=== PATIENT | male | born 1970 | race Caucasian/White ===

== ENCOUNTER 2017-09-10 09:03 | Emergency (ER) | payer MEDICAID ==
[~2017-09-10] VITALS: Ht 172.7 cm; Wt 77.1 kg
[~2017-09-10 09:03] MED LIST: LEVO250T69 PO; MAGNSOL PO; METO1TAB9 PO; OMEP20CA74 PO; SEVE800T PO; WARF3TAB22 PO
[2017-09-10 09:14] VITALS: BP 126/76
== END 2017-09-10 17:44 | disposition left against medical advice (07) ==
LOC: EDBD 09:03 → ER 09:03
DX: M25.512 Pain in left shoulder (principal); M25.572 Pain in left ankle and joints of left foot; W19.XXXA Unspecified fall, initial encounter; Y93.89 Activity, other specified; Y92.69 Other specified industrial and construction area as the place of occurrence of the external cause; Y99.8 Other external cause status; Z53.21 Procedure and treatment not carried out due to patient leaving prior to being seen by health care provider
CPT/HCPCS: 72100; 73030; 73610

== ENCOUNTER 2017-09-28 11:44 | Emergency (ER) | payer MEDICAID ==
[~2017-09-28] VITALS: Ht 185.4 cm; Wt 81.6 kg
[2017-09-28 12:25] LABS: Basophils # (auto) 0.1 uL; Basophils % (auto) 1.5 % (0.0-2.0); Eosinophils # (auto) 0.2 uL; Hematocrit 25.8 % (41.0-53.0); Hemoglobin 8.5 g/dL (13.5-17.5); Lymphocytes # (auto) 0.7 uL; Lymphocytes % (auto) 12.9 % (10.0-50.0); Mean Corpuscular Hemoglobin 31.4 pg (28.0-32.0); Mean Corpuscular Hgb Conc. 33.1 g/dL (32.0-36.0); Monocytes # (auto) 0.5 uL; Monocytes % (auto) 9.5 % (0.0-12.0); Neutrophils # (auto) 3.9 uL; Neutrophils % (auto) 73.1 % (37.0-80.0); Platelet Count (auto) 217 10^3/uL (140-450); Red Blood Cells 2.72 10^6/uL (4.5-5.90); Red Cell Distribution Width 16.9 % (11.8-14.3); White Blood Cell 5.3 10^3/uL (4.4-10.8)
[2017-09-28 12:43] LABS: Albumin 3.4 g/dL (3.4-5.0); BUN/Creatinine Ratio 5.8; Bilirubin, Total 0.3 mg/dL (0.2-1.0); Calcium 8.9 mg/dL (8.5-10.1); Magnesium 2.8 mg/dL (1.6-2.6); Potassium 5.5 mmol/L (3.5-5.1); Total Protein 7.1 g/dL (6.4-8.2)
[2017-09-28] MEDS ORDERED: cefTRIAXone 1GM/10ml IVPUSH 10 ML IV ONE (16:45)
[2017-09-28 19:21] VITALS: BP 125/76
== END 2017-09-28 19:29 | disposition left against medical advice (07) ==
LOC: EDBD 11:44 → ER 11:44
DX: R53.1 Weakness (principal); R55 Syncope and collapse; I95.2 Hypotension due to drugs; D63.1 Anemia in chronic kidney disease; R00.1 Bradycardia, unspecified; N18.6 End stage renal disease; E87.5 Hyperkalemia; J44.9 Chronic obstructive pulmonary disease, unspecified; I50.9 Heart failure, unspecified; I13.2 Hypertensive heart and chronic kidney disease with heart failure and with stage 5 chronic kidney disease, or end stage renal disease; K21.9 Gastro-esophageal reflux disease without esophagitis; Z99.2 Dependence on renal dialysis; Z95.2 Presence of prosthetic heart valve; Z95.1 Presence of aortocoronary bypass graft
CPT/HCPCS: 36415; 71045; 80053; 83735; 84484; 85025; 87040; 87077; 87186; 93005; 96374

== ENCOUNTER 2018-02-04 05:53 | Emergency (ER) | payer MEDICAID ==
[~2018-02-04] VITALS: Ht 185.4 cm; Wt 81.6 kg
[2018-02-04 07:15] LABS: Basophils # (auto) 0.1 uL; Basophils % (auto) 1.4 % (0.0-2.0); Eosinophils # (auto) 0.3 uL; Eosinophils % (auto) 4.2 % (0.0-7.0); Hematocrit 28.2 % (41.0-53.0); Hemoglobin 9.6 g/dL (13.5-17.5); INR 0.98 (0.9-1.15); Lymphocytes # (auto) 1.1 uL; Lymphocytes % (auto) 17.7 % (10.0-50.0); Mean Corpuscular Hemoglobin 30.5 pg (28.0-32.0); Mean Corpuscular Volume 89.7 fL (80.0-100.0); Monocytes # (auto) 0.6 uL; Monocytes % (auto) 8.9 % (0.0-12.0); Neutrophils # (auto) 4.2 uL; Neutrophils % (auto) 67.8 % (37.0-80.0); Nucleated Red Blood Cells % 0.1 %; Partial Thromboplastin Time 27.5 sec (22.64-33.71); Platelet Count (auto) 270 10^3/uL (140-450); Prothrombin Time 10.7 sec (9.37-12.3); Red Blood Cells 3.14 10^6/uL (4.5-5.90); Red Cell Distribution Width 17.2 % (11.8-14.3); White Blood Cell 6.2 10^3/uL (4.4-10.8)
[2018-02-04 07:28] LABS: BUN/Creatinine Ratio 5.3; Bilirubin, Total 0.4 mg/dL (0.2-1.0); Calcium 8.9 mg/dL (8.5-10.1); Potassium 4.8 mmol/L (3.5-5.1); Total Protein 7.9 g/dL (6.4-8.2)
[2018-02-04 09:28] VITALS: BP 184/104
[2018-02-04] MEDS ORDERED: NITROGLYCERIN 0.4 MG SL TAB SL PRN (10:30)
[2018-02-04] MEDS ORDERED: TEMAZEPAM 15 MG CAP PO PRN (10:30)
[2018-02-04] MEDS ORDERED: LORazepam 0.5 MG TAB PO PRN (10:30)
[2018-02-04] MEDS ORDERED: LABETALOL HCL 5 MG/ML ML 20ML VIAL IV PRN ×2 (10:30)
[2018-02-04] MEDS ORDERED: ACETAMINOPHEN 500 MG TAB PO PRN (10:30)
[2018-02-04] MEDS ORDERED: HYDROcodone-ACET 5/325MG TAB PO PRN (10:30)
[2018-02-04] MEDS ORDERED: HYDROmorphone HCL 2 MG/ML VL IV PRN (10:30)
[2018-02-04] MEDS ORDERED: ENALAPRIL MALEATE 2.5 MG TAB PO ONE (10:45)
[2018-02-04] MEDS ORDERED: NITROGLYCERIN 0.2MG/HR TOPICAL PATCH TD ONE (10:45)
[2018-02-04 11:02] LABS: INR 1.01 (0.9-1.15); Partial Thromboplastin Time 28.2 sec (22.64-33.71)
[2018-02-04] MEDS ORDERED: SEVELAMER 800 MG TAB PO SCH (11:30)
[2018-02-05] MEDS ORDERED: NITROGLYCERIN 0.2MG/HR TOPICAL PATCH TD SCH (10:00)
[2018-02-05] MEDS ORDERED: METOPROLOL SUCCINATE XL 50 MG TAB PO SCH (10:00)
[2018-02-05] MEDS ORDERED: PANTOPRAZOLE 40 MG TAB PO SCH (10:00)
[2018-02-05] MEDS ORDERED: PATIENTS OWN MEDICATION (Warfarin Sodium 1 TAB) PO SCH (10:00)
[2018-02-05] MEDS ORDERED: PATIENTS OWN MEDICATION (Metoprolol Succinate (Metoprolol Succinate Er) 1 TAB) PO SCH (10:00)
[2018-02-05] MEDS ORDERED: OMEPRAZOLE 20MG/10ML ORAL SUSP PO SCH (10:00)
[2018-02-05] MEDS ORDERED: ENALAPRIL MALEATE 2.5 MG TAB PO SCH (10:00)
== END 2018-02-04 12:54 | disposition left against medical advice (07) ==
LOC: ER 05:56 → UNDOADMIN 05:57 → TELE 05:57 → ER 12:54
DX: K21.9 Gastro-esophageal reflux disease without esophagitis (principal); J44.9 Chronic obstructive pulmonary disease, unspecified; I13.2 Hypertensive heart and chronic kidney disease with heart failure and with stage 5 chronic kidney disease, or end stage renal disease; N18.6 End stage renal disease; E78.5 Hyperlipidemia, unspecified; F32.9 Major depressive disorder, single episode, unspecified; F41.9 Anxiety disorder, unspecified; I25.10 Atherosclerotic heart disease of native coronary artery without angina pectoris; Z79.01 Long term (current) use of anticoagulants; Z91.19 Patient's noncompliance with other medical treatment and regimen; Z95.1 Presence of aortocoronary bypass graft; Z99.2 Dependence on renal dialysis
CPT/HCPCS: 36415; 71046; 80053; 82550; 83880; 84443; 84484; 85025; 85610; 85730; 93005

== ENCOUNTER 2018-02-10 16:36 | Emergency (ER) | payer MEDICAID ==
[~2018-02-10] VITALS: Ht 185.4 cm; Wt 81.6 kg
[2018-02-10 16:56] VITALS: BP 169/100
[2018-02-10] MEDS ORDERED: PIPERACILLIN-TAZOB 3.375GM 100 ML IV ONE (17:00)
== END 2018-02-10 17:00 | disposition left against medical advice (07) ==
LOC: ER 16:36
DX: I13.2 Hypertensive heart and chronic kidney disease with heart failure and with stage 5 chronic kidney disease, or end stage renal disease (principal); I50.22 Chronic systolic (congestive) heart failure; N18.6 End stage renal disease; Z99.2 Dependence on renal dialysis; Z87.891 Personal history of nicotine dependence; Z88.6 Allergy status to analgesic agent; Z88.8 Allergy status to other drugs, medicaments and biological substances; Z95.1 Presence of aortocoronary bypass graft

== ENCOUNTER 2019-09-16 08:07 | Emergency (ER) | payer MEDICAID ==
[~2019-09-16] VITALS: Ht 180.3 cm; Wt 77.1 kg
[2019-09-16 08:24] VITALS: BP 220/130
== END 2019-09-16 08:30 | disposition left against medical advice (07) ==
LOC: ER 08:07
DX: R53.1 Weakness (principal); Z53.21 Procedure and treatment not carried out due to patient leaving prior to being seen by health care provider
CPT/HCPCS: 93005

== ENCOUNTER 2021-12-20 21:30 | Emergency (ER) | payer MEDICAID ==
[~2021-12-20] VITALS: Ht 188 cm; Wt 79.4 kg
[~2021-12-20 21:30] MED LIST changes: +APIX2.5T PO; +APIX5TAB4 PO; +CALC667C5 PO; +CAR125T PO; +CLON0.1T PO; +HYDR25TA87 PO; -LEVO250T69 PO; +LOSA-69 PO; +NIFE1TAB31 PO; -WARF3TAB22 PO
[2021-12-20 23:50] VITALS: BP 150/92
== END 2021-12-21 01:21 | disposition home or self-care (01) ==
LOC: EDBD 21:30 → ER 21:30
DX: S82.402A Unspecified fracture of shaft of left fibula, initial encounter for closed fracture (principal); S00.83XA Contusion of other part of head, initial encounter; I12.0 Hypertensive chronic kidney disease with stage 5 chronic kidney disease or end stage renal disease; N18.6 End stage renal disease; F12.10 Cannabis abuse, uncomplicated; Z87.891 Personal history of nicotine dependence; Y08.89XA Assault by other specified means, initial encounter; Y93.89 Activity, other specified; Y92.89 Other specified places as the place of occurrence of the external cause; Y99.8 Other external cause status
CPT/HCPCS: 29515; 70486; 73590

== ENCOUNTER 2022-02-27 01:14 | Emergency (ER) | payer MEDICAID ==
[~2022-02-27] VITALS: Ht 188 cm; Wt 79.4 kg
[2022-02-27 01:16] VITALS: BP 160/98
[2022-02-27] MEDS ORDERED: SULF400T11 PO (01:40)
[2022-02-27] MEDS ORDERED: CEPH-509 PO (01:40)
[2022-02-27] MEDS ORDERED: cefTRIAXone SOD 1,000 MG VL IM ONE (01:45)
[2022-02-27] MEDS ORDERED: LIDOCAINE 1% (LOCAL ANESTH.) PF 5ml SDV ONE (02:13)
[2022-02-27] MEDS ORDERED: LIDOCAINE 1% HCL (LOCAL ANESTH.) INJ 20ML MDV IJ ONE (02:15)
== END 2022-02-27 02:24 | disposition left against medical advice (07) ==
LOC: ER 01:14
DX: I12.0 Hypertensive chronic kidney disease with stage 5 chronic kidney disease or end stage renal disease (principal); N18.6 End stage renal disease; F12.10 Cannabis abuse, uncomplicated; Z87.891 Personal history of nicotine dependence; Z49.01 Encounter for fitting and adjustment of extracorporeal dialysis catheter; Z88.8 Allergy status to other drugs, medicaments and biological substances; Z88.6 Allergy status to analgesic agent
CPT/HCPCS: 99283; J0696

== ENCOUNTER 2023-09-23 11:40 | Emergency (ER) | payer MEDICAID ==
[~2023-09-23] VITALS: Ht 177.8 cm; Wt 77.5 kg
[~2023-09-23 11:40] MED LIST changes: +CEPH-509 PO; -LOSA-69 PO; +LOSA50TA46 PO; +SULF400T11 PO
[2023-09-23 11:50] VITALS: BP 136/82; RESP 20; O2SAT 96
[2023-09-23 11:56] VITALS: PULSE 81
== END 2023-09-23 12:20 | disposition left against medical advice (07) ==
LOC: ER 11:40 → EDBD 11:40 → ER 12:20
DX: R10.30 Lower abdominal pain, unspecified (principal); R94.31 Abnormal electrocardiogram [ECG] [EKG]; Z53.21 Procedure and treatment not carried out due to patient leaving prior to being seen by health care provider
CPT/HCPCS: 93005

== ENCOUNTER 2025-01-12 18:20 | Inpatient (IN) | payer MEDICAID ==
[~2025-01-12] VITALS: Ht 172.7 cm; Wt 71.2 kg
[~2025-01-12 18:20] MED LIST changes: -CAR125T PO; +CARV-216 PO; +LOSA-534 PO; -LOSA50TA46 PO; -SEVE800T PO; +SEVE800T7 PO
--- NOTE | 2025-01-12 19:02 | ED.PDOC ---
Altered Mental Status HPI Comments 54 year old male presents to the emergency department with a chief complaint of overdose onset today (01/12/25). Per EMS, 911 was called by patient's roommate, was at home found on the ground, cyanotic, pinpoint pupils, unconscious. He was given 0.5 mg Narcan, with slight response, 1.5 mg Narcan given 5 minutes after. Upon ED arrival, patient is awake, admits the use of Fentanyl, is currently experiencing chest pain and nausea, hypertensive 192/104. PMHx ESRD, HTN, depression, anxiety, anemia. Denies headache, shortness of breath, dizziness, vomiting, diarrhea, abdominal pain. No other symptoms or modifying factors present at this time. Chief Complaint: Overdose Time Seen by MD: 18:25 Primary Care Provider: MARVEL Reviewed Notes: Medications, Allergies Allergies: Coded Allergies: Tramadol (Verified Allergy, Severe, 08/26/13) Aspirin (Verified Allergy, Unknown, PT IS ON COUMADIN. NO ASPIRIN, 03/04/14) Dexamethasone (Verified Allergy, Unknown, ITCHING, 03/04/14) Ketorolac (Verified Allergy, Unknown, ITCHING, 03/04/14) Morphine (Verified Allergy, Unknown, 06/18/16) Home Meds Active Scripts Sulfamethoxazole-Trimethoprim (Bactrim) 1 Tab Tab, 1 TAB PO BID for 7 Days, #14 MG Prov:DENNIS CAN DO 02/27/22 Cephalexin (KEFLEX 500) 500 Mg Cap, 1 CAP PO BID for 7 Days, #14 CAP Prov:DENNIS CAN DO 02/27/22 Hydralazine HCl (Hydralazine HCl) 25 Mg Tab, 25 MG PO Q8HR, #90 TAB Prov:DAX LAM MD 11/04/19 Clonidine Hydrochloride (Clonidine Hcl) 0.1 Mg Tab, 0.1 MG PO Q8HPRN PRN, #90 TAB Measure blood pressure prior to every dose. Take only if your systolic blood pressure or top number is above 160 mmHg Prov:DAX LAM MD 11/03/19 Nifedipine (Nifedipine Er) 30 Mg Tab, 60 MG PO DAILY, #30 TAB Prov:DAX LAM MD 11/03/19 Losartan Potassium (Losartan Potassium) 50 Mg Tab, 50 MG PO BID, #60 TAB Prov:DAX LAM MD 11/03/19 Calcium Acetate (PHOSLO CAPSULE) 667 Mg Cp, 1334 MG PO TIDWMEALS, #180 CAP Prov:DAX LAM MD 11/03/19 Carvedilol (COREG) 12.5 Mg Tab, 25 MG PO Q12HR, #60 TAB Prov:DAX LAM MD 11/03/19 Apixaban Base (ELIQUIS) 2.5 Mg Tab, 2.5 MG PO BID, #60 TAB Prov:DXA LAM MD 11/03/19 Omeprazole (PRILOSEC) 20 Mg Cap, 1 CAP PO DAILY, #90 CAP 1 Refill Prov:LUCIO PLUNKETT MD 09/01/17 Reported Medications Apixaban Base (Eliquis Starter Pack) 5 Mg Tab, 5 MG PO BID, TAB 11/02/19 Magnesium Citrate (Citrate of Magnesia) 1 Socorro Socorro, 1 SOCORRO PO PRN for FOR CONSTIPATION 08/31/17 Sevelamer Hydrochloride (Renagel) 800 Mg Tab, 800 MG PO AC, TAB 02/16/16 Metoprolol Succinate (Metoprolol Succinate Er) 100 Mg Tab, 1 TAB PO DAILY, #30 07/11/13 Information Source: Patient, Emergency Med Personnel Mode of Arrival: EMS Severity: Moderate Timing: Hours Duration: Since onset Prehospital treatment: Other (Narcan) Quality: Decreased Alertness, Change in Behavior Recent: Medication/Drug Abuse Associated Signs and Symptoms: Chest Pain Past Medical History PAST MEDICAL HISTORY: Anemia, Anxiety, Depression, ESRD, HTN Surgical History: CABG Family History Family History: Reviewed,noncontributory to illness, No family hx of Cancer, No family hx of DM, No family hx of HTN Social History Smoker: Quit Greater Than 1 Year, Cigarettes Alcohol: Denies ETOH Use Drugs: Marijuana, Other Lives In: Home Constitutional: denies: chills, diaphoresis, fatigue, fever, malaise, sweats, weakness, others EENTM: denies: blurred vision, double vision, ear bleeding, ear discharge, ear drainage, ear pain, ear ringing, eye pain, eye redness, hearing loss, mouth pa in, mouth swelling, nasal discharge, nose bleeding, nose congestion, nose pain, photophobia, tearing, throat pain, throat swelling, voice changes, others Respiratory: denies: cough, hemoptysis, orthopnea, SOB at rest, shortness of breath, SOB with excertion, stridor, wheezing, others Cardiovascular: reports: chest pain; denies: dizzy spells, diaphoresis, Dyspnea on exertion, edema, irregular heart beat, left arm pain, lightheadedness, palpitations, PND, syncope, others Gastrointestinal: denies: abdomen distended, abdominal pain, blood streaked bow els, constipated, diarrhea, dysphagia, difficulty swallowing, hematemesis, melena, nausea, poor appetite, poor fluid intake, rectal bleeding, rectal pain, vomiting, others Genitourinary: denies: burning, dysuria, flank pain, frequency, hematuria, incontinence, penile discharge, penile sore, pain, testicle pain, testicle swelling, urgency, others Neurological: denies: dizziness, fainting, headache, left sided numbness, left sided weakness, numbness, paresthesia, pre-existing deficit, right sided numbness, right sided weakness, seizure, speech problems, tingling, tremors, weakness, others Musculoskeletal: denies: back pain, gout, joint pain, joint swelling, muscle pain, muscle stiffness, neck pain, others Integumetry: denies: bruises, change in color, change in hair/nails, dryness, laceration, lesions, lumps, rash, wounds, others Allergic/Immunocompromised: denies: Difficulty Healing, Frequent Infections, Hives, Itching, others Hematologic/Lymphatic: denies: anemia, blood clots, easy bleeding, easy bruising, swollen glands, others Endocrine: denies: excessive hunger, excessive sweating, excessive thirst, excessive urination, flushing, intolerance to cold, intolerance to heat, unexplained weight gain, unexplained weight loss, others Psychiatric: reports: others (overdose); denies: anxiety, bipolar disorder, depression, hopeless, panic disorder, schizophrenia, sleepless, suicidal All Other Systems: Reviewed and Negative Physical Exam General Appearance: No Apparent Distress, Normal HEENT: Normal ENT Inspection, Pharynx Normal, TMs Normal Neck: Full Range of Motion, Non-Tender, Normal, Normal Inspection Respiratory: Chest Non-Tender, Lungs Clear, No Accessory Muscle Use, No Respiratory Distress, Normal Breath Sounds Cardiovascular: No Edema, No JVD, No Murmur, No Gallop, Normal Peripheral Pulses, Regular Rate/Rhythm Breast Exam: Deferred Gastrointestinal: No Organomegaly, Non Tender, No Pulsatile Mass, Normal Bowel Sounds, Soft Genitalia: Deferred Pelvic: Deferred Rectal: Deferred Extremities: No calf tenderness, Normal capillary refill, Normal inspection, Normal range of motion, Non-tender, No pedal edema Musculoskeletal : Apperance: Normal Neurologic: Alert, jeep mechanic II-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 Was a procedure done?: No Differential Diagnosis (ALOC) Differential Diagnosis: Dehydration, Hypoglycemia, DKA, Encephalopathy, Meningitis, Sepsis, Hypoxemia, Seizure, Closed Head Injury, Drug Overdose, ETOH Intoxication, Renal Failure, Other X-Ray, Labs, Meds, VS Vital Signs Date Time Temp Pulse Resp B/P (MAP) Pulse Ox O2 Delivery O2 Flow Rate FiO2 01/12/25 20:00 77 01/12/25 19:37 98.4 79 11 122/75 (91) 94 98.4 01/12/25 19:37 11 95 Room Air* 0 21 01/12/25 18:35 82 01/12/25 18:30 98.7 86 20 192/104 (133) 97 98.7 Lab Test 01/12/25 21:38 01/12/25 19:35 01/12/25 18:44 Range/Units Troponin I High Sensitivity Pending 52 37 </=54 ng/L White Blood Count 7.5 4.4-10.8 10^3/uL Red Blood Count 3.74 L 4.5-5.90 10^6/uL Hemoglobin 11.8 L 13.5-17.5 g/dL Hematocrit 35.0 L 41.0-53.0 % Mean Corpuscular Volume 93.5 80.0-100.0 fL Mean Corpuscular Hemoglobin 31.5 28.0-32.0 pg Mean Corpuscular Hemoglobin Concent 33.7 32.0-36.0 g/dL Red Cell Distribution Width 15.6 H 11.8-14.3 % Platelet Count 308 140-450 10^3/uL Mean Platelet Volume 6.6 L 6.9-10.8 fL Neutrophils (%) (Auto) 75.3 37.0-80.0 % Lymphocytes (%) (Auto) 9.3 L 10.0-50.0 % Monocytes (%) (Auto) 9.6 0.0-12.0 % Eosinophils (%) (Auto) 4.5 0.0-7.0 % Basophils (%) (Auto) 1.3 0.0-2.0 % Neutrophils # (Auto) 5.6 1.6-8.6 10 ^3/uL Lymphocytes # (Auto) 0.7 0.4-5.4 10 ^3/uL Monocytes # (Auto) 0.7 0-1.3 10 ^3/uL Eosinophils # (Auto) 0.3 0-0.8 10 ^3/uL Basophils # (Auto) 0.1 0-0.2 10 ^3/uL Nucleated Red Blood Cells 0.1 % Sodium Level 135 L 136-145 mmol/L Potassium Level 4.2 3.5-5.1 mmol/L Chloride Level 98 98-107 mmol/L Carbon Dioxide Level 23 20-31 mmol/L Anion Gap 14 5-15 Blood Urea Nitrogen 37 H 9-23 mg/dL Creatinine 7.91 H 0.700-1.30 mg/dL Glomerular Filtration Rate Calc 7 >90 mL/min BUN/Creatinine Ratio 4.7 L 10.0-20.0 Serum Glucose 162 H 74-106 mg/dL Calcium Level 10.9 H 8.7-10.4 mg/dL Total Bilirubin 0.2 0.2-1.0 mg/dL Aspartate Amino Transferase (AST) 27 13-40 U/L Alanine Aminotransferase (ALT) 22 7-40 U/L Alkaline Phosphatase 77 46-116 U/L Total Protein 7.7 5.7-8.2 g/dL Albumin 4.6 3.2-4.8 g/dL Salicylates Level < 3.0 -30 mg/dL Acetaminophen Level < 2.0 L 10.0-20.0 UG/ML Plasma/Serum Blood Alcohol 6.7 <10 mg/dL Time of 1ST Reevaluation: 18:55 Reevaluation 1ST: Unchanged Time of 2ND Reevaluation: 22:10 Reevaluation 2ND: Improved (Patient is wide awake, vital signs are stable. Patient is requesting to go home and declines admission. Patient is scheduled for dialysis tomorrow he gets it Friday and Friday) Patient Education/Counseling: Diagnosis, Treatment, Prognosis Family Education/Counseling: No Family Present Additional Information The following tests were ordered, and results were reviewed by me: CBC, CMP, DRUG SCREEN, ACETAMINOPHEN, SALICYLATE, BLOOD ALCOHOL, EKG, TROP -x3 Additional Information was gathered from interviewing the following independent historians: EMS I discussed treatment and results with medical personnel and: Patient Comprehensive systems review obtained and negative except for what is stated in the HPI. Departure 1 Departure Time of Disposition: 22:11 Impression: Primary Impression: ESRD on dialysis Additional Impression: Opiate overdose Disposition: HOME / SELF CARE / HOMELESS Condition: Stable Discharged With: Self Critical Care Note Critical Care Time?: No Stability Stability form required: No I personally scribed for EPHRAIM LESTER MD ([email or web address]) on 01/12/25 at 19:02. Electronically submitted by Mago Florian ([email or web address]). I personally scribed for EPHRAIM LESTER MD ([email or web address]) on 01/12/25 at 19:12. Electronically submitted by Mago Florian ([email or web address]). EPHRAIM LESTER MD Jan 12, 2025 19:02
[2025-01-12 19:06] LABS: Basophils # (auto) 0.1 10 ^3/uL (0-0.2); Basophils % (auto) 1.3 % (0.0-2.0); Eosinophils # (auto) 0.3 10 ^3/uL (0-0.8); Eosinophils % (auto) 4.5 % (0.0-7.0); Hemoglobin 11.8 g/dL (13.5-17.5); Lymphocytes # (auto) 0.7 10 ^3/uL (0.4-5.4); Lymphocytes % (auto) 9.3 % (10.0-50.0); Mean Corpuscular Hemoglobin 31.5 pg (28.0-32.0); Mean Corpuscular Hgb Conc. 33.7 g/dL (32.0-36.0); Mean Corpuscular Volume 93.5 fL (80.0-100.0); Monocytes # (auto) 0.7 10 ^3/uL (0-1.3); Monocytes % (auto) 9.6 % (0.0-12.0); Neutrophils # (auto) 5.6 10 ^3/uL (1.6-8.6); Neutrophils % (auto) 75.3 % (37.0-80.0); Nucleated Red Blood Cells % 0.1 %; Platelet Count (auto) 308 10^3/uL (140-450); Red Blood Cells 3.74 10^6/uL (4.5-5.90); Red Cell Distribution Width 15.6 % (11.8-14.3); White Blood Cell 7.5 10^3/uL (4.4-10.8)
[2025-01-12 19:31] LABS: Alanine Aminotransferase 22 U/L (7-40); Alkaline Phosphatase 77 U/L (46-116); Anion Gap 14 (5-15); Aspartate Aminotransferase 27 U/L (13-40); BUN/Creatinine Ratio 4.7 (10.0-20.0); Blood Alcohol 6.7 mg/dL (<10); Carbon Dioxide 23 mmol/L (20-31); Potassium 4.2 mmol/L (3.5-5.1); Total Protein 7.7 g/dL (5.7-8.2)
[2025-01-12 19:33] LABS: Albumin 4.6 g/dL (3.2-4.8)
[2025-01-12 19:35] LABS: Bilirubin, Total 0.2 mg/dL (0.2-1.0); Blood Urea Nitrogen 37 mg/dL (9-23); Calcium 10.9 mg/dL (8.7-10.4); Chloride 98 mmol/L (98-107); Glucose 162 mg/dL (74-106); Sodium 135 mmol/L (136-145)
[2025-01-12 19:37] VITALS: RESP 11; O2SAT 95
[2025-01-12 20:02] LABS: Acetaminophen < 2.0 UG/ML (10.0-20.0); Salicylate < 3.0 mg/dL (-30)
[2025-01-12] MEDS: ASPirin 81 mg TAB PO ONE (23:33)
[2025-01-13] VITALS (7 sets, daily range): BP systolic 141–175; BP diastolic 90–100; PULSE 59–82; RESP 16–17; TEMP 97.5–97.8; O2SAT 95–100
[2025-01-13] MEDS ORDERED: ONDANSETRON HCL 4 MG/2 ML VIAL IV PRN
[2025-01-13] MEDS ORDERED: NITROGLYCERIN 0.4 MG SL TAB SL PRN
[2025-01-13] MEDS ORDERED: HYDR50TA69 PO (03:21)
--- NOTE | 2025-01-13 04:42 | DVHHP2 ---
History of Present Illness Reason for Visit: Altered mental status History of Present Illness 54-year-old male presents for evaluation of altered mental status. Patient was found unresponsive by EMS. Per roommate patient possibly have overdosed on fentanyl. Patient is currently alert and oriented x4 he was given multiple dos es of Narcan with positive response. He reports using fentanyl yesterday evening. Patient denies chest pain or shortness for breath at the moment. Past Medical History Hypertension and end-stage renal disease Past Surgical History Dialysis access Family History Noncontributory Smoke: No ALCOHOL: none Drugs: None Lives: with Family Review of Systems Review of Systems Review of systems are currently negative otherwise addressed in HPI. Allergies: Coded Allergies: Tramadol (Verified Allergy, Severe, 08/26/13) Aspirin (Verified Allergy, Unknown, PT IS ON COUMADIN. NO ASPIRIN, 03/04/14) Dexamethasone (Verified Allergy, Unknown, ITCHING, 03/04/14) Ketorolac (Verified Allergy, Unknown, ITCHING, 03/04/14) Morphine (Verified Allergy, Unknown, 06/18/16) Medications Current Medications Medications Dose Ordered Sig/Harsh Route Start Time Stop Time Status Last Admin Dose Admin Nitroglycerin 0.4 mg Q5MINP PRN SL 01/13/25 00:00 Apixaban 5 mg BID PO 01/13/25 10:00 Calcium Acetate 667 mg TIDWMEALS PO 01/13/25 08:00 Carvedilol 3.125 mg Q12HR PO 01/13/25 10:00 Hydralazine HCl 25 mg Q8HR PO 01/13/25 06:00 Nifedipine 60 mg DAILY PO 01/13/25 10:00 Sevelamer HCl 800 mg TIDWM PO 01/13/25 08:00 Atorvastatin Calcium 10 mg HS PO 01/13/25 22:00 Ondansetron HCl 4 mg Q4HP PRN IV 01/13/25 00:00 Exam Vital Signs Vital Signs Date Time Temp Pulse Resp B/P (MAP) Pulse Ox O2 Delivery O2 Flow Rate FiO2 01/13/25 00:00 70 01/13/25 00:00 98.7 12 152/96 (114) 95 98.7 01/12/25 19:37 Room Air* 0 21 Exam Gen: 54-year-old male in no apparent distress. Skin: Warm, dry, normal color and texture, no rash. HEENT: Normocephalic atraumatic, mucous membranes moist and pink. Neck: Cervical and supraclavicular nodes normal without enlargement, trachea is midline, thyroid gland is normal without masses. Pulmonary: Clear to auscultation and percussion bilaterally. Cardiac: Regular rate and rhythm. No murmur Abdomen: Soft, nontender, nondistended, bowel sounds present all 4 quadrants, no guarding, no rigidity, no organomegaly. Extremities: No cyanosis, clubbing, no edema Neuro: Cranial nerves II through XII grossly intact, normal affect and speech, no focal motor deficits. Labs/Xrays Labs Test 01/12/25 22:37 01/12/25 18:44 Range/Units Troponin I High Sensitivity 123 *H </=54 ng/L White Blood Count 7.5 4.4-10.8 10^3/uL Red Blood Count 3.74 L 4.5-5.90 10^6/uL Hemoglobin 11.8 L 13.5-17.5 g/dL Hematocrit 35.0 L 41.0-53.0 % Mean Corpuscular Volume 93.5 80.0-100.0 fL Mean Corpuscular Hemoglobin 31.5 28.0-32.0 pg Mean Corpuscular Hemoglobin Concent 33.7 32.0-36.0 g/dL Red Cell Distribution Width 15.6 H 11.8-14.3 % Platelet Count 308 140-450 10^3/uL Mean Platelet Volume 6.6 L 6.9-10.8 fL Neutrophils (%) (Auto) 75.3 37.0-80.0 % Lymphocytes (%) (Auto) 9.3 L 10.0-50.0 % Monocytes (%) (Auto) 9.6 0.0-12.0 % Eosinophils (%) (Auto) 4.5 0.0-7.0 % Basophils (%) (Auto) 1.3 0.0-2.0 % Neutrophils # (Auto) 5.6 1.6-8.6 10 ^3/uL Lymphocytes # (Auto) 0.7 0.4-5.4 10 ^3/uL Monocytes # (Auto) 0.7 0-1.3 10 ^3/uL Eosinophils # (Auto) 0.3 0-0.8 10 ^3/uL Basophils # (Auto) 0.1 0-0.2 10 ^3/uL Nucleated Red Blood Cells 0.1 % Sodium Level 135 L 136-145 mmol/L Potassium Level 4.2 3.5-5.1 mmol/L Chloride Level 98 98-107 mmol/L Carbon Dioxide Level 23 20-31 mmol/L Anion Gap 14 5-15 Blood Urea Nitrogen 37 H 9-23 mg/dL Creatinine 7.91 H 0.700-1.30 mg/dL Glomerular Filtration Rate Calc 7 >90 mL/min BUN/Creatinine Ratio 4.7 L 10.0-20.0 Serum Glucose 162 H 74-106 mg/dL Calcium Level 10.9 H 8.7-10.4 mg/dL Total Bilirubin 0.2 0.2-1.0 mg/dL Aspartate Amino Transferase (AST) 27 13-40 U/L Alanine Aminotransferase (ALT) 22 7-40 U/L Alkaline Phosphatase 77 46-116 U/L Total Protein 7.7 5.7-8.2 g/dL Albumin 4.6 3.2-4.8 g/dL Salicylates Level < 3.0 -30 mg/dL Acetaminophen Level < 2.0 L 10.0-20.0 UG/ML Plasma/Serum Blood Alcohol 6.7 <10 mg/dL Assessment/Plan Assessment/Plan Assessment Toxic encephalopathy End-stage renal disease, dialysis dependent Hypertension Elevated troponin, demand ischemia Plan Admit the patient to telemetry to the hospitalist Nephrology consultation Resume home medications Continue treatment per orders. Plan discussed with: Patient My Orders Orders - GINA VALDEZ AGACNP Procedure Category Date Status Time Admit ADMIT 01/12/25 Transmitted 23:55 Nitroglycerin PHA 01/13/25 In Process Sublingual (Ntrostat 00:00 Stat Ekg For Chest LELIA 01/12/25 In Process Pain 23:55 Notify Of Changes LELIA 01/12/25 In Process From Base 23:55 Core Sucker For LELIA 01/12/25 In Process 24 Hours 23:55 Emergency Dysrhythmia LELIA 01/12/25 In Process Protocol 23:55 Rhythm Strips Once LELIA 01/12/25 In Process Every Shift 23:55 Oxygen By Nasal RT 01/12/25 Transmitted Cannula 23:55 Apixaban (Eliquis) PHA 01/13/25 In Process 10:00 Calcium Acetate PHA 01/13/25 In Process Capsule (Phoslo 08:00 Carvedilol Tablet PHA 01/13/25 In Process (Coreg Tablet) 10:00 Hydralazine Hcl PHA 01/13/25 In Process Tablet (Apresoline 06:00 Nifedipine Er PHA 01/13/25 In Process (Procardia Xl 10:00 Sevelamer (Renagel) PHA 01/13/25 In Process 08:00 *[facility] CONS 01/12/25 Transmitted -[place] 23:57 Atorvastatin (Lipitor) PHA 01/13/25 In Process 22:00 Basic Metabolic Panel LAB 01/13/25 Logged 04:00 Renal DIET 01/13/25 Transmitted Standard(2gna,3gk,Lopho) Breakfast Ondansetron Hcl PHA 01/13/25 In Process (Zofran) 00:00 Echo 2d Mode Cardiac US 01/12/25 Logged DOP 23:57 Condition: Fair LELIA 01/12/25 In Process 23:57 Bedrest With Bathroom LELIA 01/12/25 In Process Privileg 23:57 Hydroxyzine Oral PHA 01/13/25 In Process (Vistaril Oral) 04:45 Date of Service: Jan 12, 2025 Billing Provider: GINA VALDEZ Common Visit Codes: [id number] INP/OBS CARE (HIGH) GINA VALDEZ Jan 13, 2025 04:42
[2025-01-13] MEDS: hydrALAZINE HCL 25 MG TAB PO SCH (05:50)
[2025-01-13] MEDS: hydrOXYzine HCL 10 MG TAB PO ONE (05:50)
[2025-01-13 06:45] LABS: Anion Gap 13 (5-15); Carbon Dioxide 25 mmol/L (20-31); Potassium 4.8 mmol/L (3.5-5.1)
[2025-01-13 06:51] LABS: BUN/Creatinine Ratio 4.6 (10.0-20.0); Blood Urea Nitrogen 39 mg/dL (9-23); Calcium 10.8 mg/dL (8.7-10.4); Chloride 98 mmol/L (98-107); Glucose 87 mg/dL (74-106); Sodium 136 mmol/L (136-145)
[2025-01-13] MEDS: CALCIUM ACETATE 667 MG CAP PO SCH (08:30)
[2025-01-13] MEDS: SEVELAMER 800 MG TAB PO SCH (08:31)
--- NOTE | 2025-01-13 09:01 | ECG ---
[facility] Test Date: 2025-01-12 Test Time: 18:33:57 Pat Name: LEANN WU Department: ED Room: 0284T A Gender: M [employer]aster: AWA : 1970 Requested By: EPHRAIM LESTER Order Number: [id number] Reading MD: Lorne Garcia Measurements Intervals [place] Rate: 82 P: 260 HI: 270 QRS: 90 QRSD: 114 T: -72 QT: 386 QTc: 451 Interpretive Statements Sinus or ectopic atrial rhythm Prolonged HI interval Anterior infarct, old Abnormal T, consider ischemia, diffuse leads Electronically Signed On 01-16-2025 20:19:21 PDT by Lorne Garcia Please click the below link to view image of tracing.
--- NOTE | 2025-01-13 09:08 | DVH ---
CHEST RADIOGRAPH Indication: sob Technique: Single frontal view of the chest was obtained Comparison: None FINDINGS: Lines and Tubes: Tunneled left hemodialysis catheter tip in the cavoatrial junction Lungs: No focal consolidation. Pleura: No effusion. No pneumothorax. Cardiomediastinal contours: Unremarkable Bones: Median sternotomy IMPRESSION: No acute cardiopulmonary disease.
[2025-01-13] MEDS: CARVEDILOL 3.125 MG TAB PO SCH (10:00)
[2025-01-13] MEDS: APIXABAN 5 MG TAB PO SCH (10:00)
[2025-01-13] MEDS: NIFEdipine ER 30 MG TAB PO SCH (10:00)
--- NOTE | 2025-01-13 11:19 | DVHPN2 ---
Subjective Patient is seen and examined at bedside. No complaint today. Reviewed: Care Plan, H&P, Labs, Medications, Previous Orders, Radiology Changes from previous H/P or p: No Changes Objective Vitals Vital Signs Date Time Temp Pulse Resp B/P (MAP) Pulse Ox O2 Delivery O2 Flow Rate FiO2 01/13/25 09:00 97.5 82 17 158/90 (112) 96 97.5 01/13/25 08:00 Room Air* 0 21 General Appearance: Alert, Cooperative, No acute distress HEENT: Atraumatic, PERRLA, EOMI, Mucous membr. moist/pink Neck: Supple Lungs: Clear to auscultation, Normal air movement Cardiovascular: Regular rate, Normal S1, Normal S2, No murmurs, Gallops, Rubs Abdomen: Normal bowel sounds, Soft, No tenderness Neuro: Cranial nerves 3-12 NL Psych/Mental Status: Mental status NL Medications Current Medications Medications Dose Ordered Sig/Harsh Route Start Time Stop Time Status Last Admin Dose Admin Nitroglycerin 0.4 mg Q5MINP PRN SL 01/13/25 00:00 Apixaban 5 mg BID PO 01/13/25 10:00 Calcium Acetate 667 mg TIDWMEALS PO 01/13/25 08:00 01/13/25 08:30 667 MG Carvedilol 3.125 mg Q12HR PO 01/13/25 10:00 Hydralazine HCl 25 mg Q8HR PO 01/13/25 06:00 01/13/25 05:50 25 MG Nifedipine 60 mg DAILY PO 01/13/25 10:00 Sevelamer HCl 800 mg TIDWM PO 01/13/25 08:00 01/13/25 08:31 800 MG Atorvastatin Calcium 10 mg HS PO 01/13/25 22:00 Ondansetron HCl 4 mg Q4HP PRN IV 01/13/25 00:00 Laboratory Results Laboratory Tests 01/12/25 18:44 01/13/25 05:51 Chemistry Test 01/12/25 18:44 01/13/25 05:51 Albumin 4.6 g/dL (3.2-4.8) Calcium Level 10.9 mg/dL (8.7-10.4) H 10.8 mg/dL (8.7-10.4) H Total Protein 7.7 g/dL (5.7-8.2) LFT Test 01/12/25 18:44 Alanine Aminotransferase (ALT) 22 U/L (7-40) Alkaline Phosphatase 77 U/L (46-116) Aspartate Amino Transferase (AST) 27 U/L (13-40) Total Bilirubin 0.2 mg/dL (0.2-1.0) Labs and/or images reviewed: Labs reviewed by me Assessment/Plan Assessment/Plan Toxic encephalopathy End-stage renal disease, dialysis dependent Hypertension Elevated troponin, demand ischemia Continuing current management. Dialysis per schedule. Continuing hypertensive medication. Hydralazine p.r.n. This medical document was created using an electronic medical record system with [employer] direct computerized dictation system. Although this document has been carefully reviewed, there may still be some phonetic and typographical errors. These areas are purely typographical due to imperfections of the software programs, and do not reflect any compromise in the patient's medical care. Plan discussed with: Patient Date of Service: Jan 13, 2025 Billing Provider: MARGUERITE TA MD Common Visit Codes: [id number] INP/OBS CARE(HIGH) MARGUERITE TA MD Jan 13, 2025 11:19
--- NOTE | 2025-01-13 13:27 | DVHSR ---
APPROVED REPORT EXAM: Two-dimensional and M-mode echocardiogram with Doppler and color Doppler. Blood Pressure: 152/96 mmHg INDICATION EF Surgery/Intervention Valve Replacement: Type: AV RISK FACTORS Height: 5'8", Weight: 150 DIMENSIONS LVDd4.9 (3.8-5.7cm)LA (2D)5.7 (1.9-4.0cm)Aortic Root (2.0-3.7cm) LVDs3.1 (2.5-4.0cm)LA (MM) (1.9-4.0cm)Aortic Cusp Exc (1.5-2.0cm) EF (%) 66.3 (55-70%)Rt. Atrium4.9 (1.9-4.0cm)Asc. Aorta cm IVSd1.6 (0.7-1.1cm)RV (D)4.7 (1.8-2.4cm) PWd1.2 (0.7-1.1cm) Mitral Valve MitralMitral Stenosis E wave1.57m/sMV Mean GR.5mmHg A wave1.05m/sMV Peak GR.13mmHg E/A ratio1.52D MVA1.85cm2 DECEL [id number] 1/2 [id number] IVRTmsDop MVA1.75cm2 Aortic Valve Aortic ValveAortic Stenosis V10.94m/Gama Mean GR.10mmHg V22.02m/Gama Peak GR.16mmHg LVOT Diameter2.0 (1.8-2.4cm)Doppler AVA1.46cm2 AI P 1/2 Uidr307.68ms Tricuspid Valve TR Velocity2.53m/s [id number] Other Information Quality : Technically LimitedRhythm : Technically limited study due to body habitus. Conclusion lvef 55% moderate LVH severe MAC, moderate mitral stenosis mean gradient 5 mmhg mild tricuspid regurg moderate mitral regurg left atrium enlarged s/p AVR mild tricuspid regurg
--- NOTE | 2025-01-13 14:58 | DVHINCON2 ---
Date of service: Jan 13, 2025 Referring Physician Hospitalist Reason for Consultation End-stage renal disease History of Present Illness 54-year-old male patient was a poor historian based on previous hospitalizations patient is a chronic end-stage renal disease patient from [place] who has a his tory of heart disease and high blood pressure. Patient transiently move to [facility] and was initially doing hemodialysis treatments and [facility] dialysis however patient was noncompliant and did not show up to treatment and was discharged. Patient had unstable living situation was living with son but at this time is unclear where he was living. Per EMS reports patient was found unresponsive and was given Narcan which improved symptoms patient was admitted for possible opioid overdose. Patient now is alert and oriented. He reports that he currently lives in [place] but gets transported to [place] 3 times a we ek to a [facility] in [place]. Allergies: Coded Allergies: Tramadol (Verified Allergy, Severe, 08/26/13) Aspirin (Verified Allergy, Unknown, PT IS ON COUMADIN. NO ASPIRIN, 03/04/14) Dexamethasone (Verified Allergy, Unknown, ITCHING, 03/04/14) Ketorolac (Verified Allergy, Unknown, ITCHING, 03/04/14) Morphine (Verified Allergy, Unknown, 06/18/16) Home Meds Active Scripts Sulfamethoxazole-Trimethoprim (Bactrim) 1 Tab Tab, 1 TAB PO BID for 7 Days, #14 MG Prov:DENNIS CAN DO 02/27/22 Cephalexin (KEFLEX 500) 500 Mg Cap, 1 CAP PO BID for 7 Days, #14 CAP Prov:DENNIS CAN DO 02/27/22 Hydralazine HCl (Hydralazine HCl) 25 Mg Tab, 25 MG PO Q8HR, #90 TAB Prov:DAX LAM MD 11/04/19 Clonidine Hydrochloride (Clonidine Hcl) 0.1 Mg Tab, 0.1 MG PO Q8HPRN PRN, #90 TAB Measure blood pressure prior to every dose. Take only if your systolic blood pressure or top number is above 160 mmHg Prov:DAX LAM MD 11/03/19 Nifedipine (Nifedipine Er) 30 Mg Tab, 60 MG PO DAILY, #30 TAB Prov:DAX LAM MD 11/03/19 Losartan Potassium (Losartan Potassium) 50 Mg Tab, 50 MG PO BID, #60 TAB Prov:ADX LAM MD 11/03/19 Calcium Acetate (PHOSLO CAPSULE) 667 Mg Cp, 1334 MG PO TIDWMEALS, #180 CAP Prov:DAX LAM MD 11/03/19 Carvedilol (COREG) 12.5 Mg Tab, 25 MG PO Q12HR, #60 TAB Prov:DAX LAM MD 11/03/19 Apixaban Base (ELIQUIS) 2.5 Mg Tab, 2.5 MG PO BID, #60 TAB Prov:DAX LAM MD 11/03/19 Omeprazole (PRILOSEC) 20 Mg Cap, 1 CAP PO DAILY, #90 CAP 1 Refill Prov:LUCIO PLUNKETT MD 09/01/17 Reported Medications Hydroxyzine Hcl (Hydroxyzine Hcl) 50 Mg Tab, 50 MG PO BID PRN for FOR ITCHING MDD 100 mg for 30 Days, MG 01/13/25 Apixaban Base (Eliquis Starter Pack) 5 Mg Tab, 5 MG PO BID, TAB 11/02/19 Magnesium Citrate (Citrate of Magnesia) 1 Rosario Rosario, 1 ROSARIO PO PRN for FOR CONSTIPATION 08/31/17 Sevelamer Hydrochloride (Renagel) 800 Mg Tab, 800 MG PO AC, TAB 02/16/16 Current Medications Current Medications Medications (Trade) Dose Ordered Sig/Harsh Route PRN Reason Start Time Stop Time Status Last Admin Nitroglycerin (Ntrostat Sublingual) 0.4 mg Q5MINP PRN SL FOR CHEST PAIN 01/13/25 00:00 Apixaban (Eliquis) 5 mg BID PO 01/13/25 10:00 Calcium Acetate (Phoslo Capsule) 667 mg TIDWMEALS PO 01/13/25 08:00 01/13/25 12:49 Carvedilol (Coreg Tablet) 3.125 mg Q12HR PO 01/13/25 10:00 Hydralazine HCl (Apresoline Tablet) 25 mg Q8HR PO 01/13/25 06:00 01/13/25 14:19 Nifedipine (Procardia Xl (Time-Release)) 60 mg DAILY PO 01/13/25 10:00 Sevelamer HCl (Renagel) 800 mg TIDWM PO 01/13/25 08:00 01/13/25 12:49 Atorvastatin Calcium (Lipitor) 10 mg HS PO 01/13/25 22:00 Ondansetron HCl (Zofran) 4 mg Q4HP PRN IV NAUSEA / VOMITING 01/13/25 00:00 Hydralazine HCl (Apresoline Injection) 10 mg Q6HP PRN IV SBP>160 01/13/25 14:00 Family History: Family history: Cardiovascular disease Family history: Hypertension G8 FATHER GRANDFATHER-FATHER SIDE Review of Systems AMS H&P Exam Vital Signs/I&O Vital Sign Date Time Temp Pulse Resp B/P (MAP) Pulse Ox O2 Delivery O2 Flow Rate FiO2 01/13/25 14:19 172/106 01/13/25 13:21 97.5 71 17 100 97.5 01/13/25 08:00 Room Air* 0 21 Physical Exam Middle-aged white male Nonacute distress Abdomen is soft No JVD Positive murmur Regular rate and rhythm No pitting edema Tunneled hemodialysis catheter Labs/Diagnostic Data Labs/Diagnostic Data Laboratory Tests Test 01/13/25 05:51 01/12/25 22:37 01/12/25 21:38 01/12/25 19:35 Range/Units Sodium Level 136 136-145 mmol/L Potassium Level 4.8 3.5-5.1 mmol/L Chloride Level 98 98-107 mmol/L Carbon Dioxide Level 25 20-31 mmol/L Anion Gap 13 5-15 Blood Urea Nitrogen 39 H 9-23 mg/dL Creatinine 8.55 H 0.700-1.30 mg/dL Glomerular Filtration Rate Calc 7 >90 mL/min BUN/Creatinine Ratio 4.6 L 10.0-20.0 Serum Glucose 87 74-106 mg/dL Calcium Level 10.8 H 8.7-10.4 mg/dL Troponin I High Sensitivity 123 *H 110 *H 52 </=54 ng/L Test 01/12/25 18:44 Range/Units White Blood Count 7.5 4.4-10.8 10^3/uL Red Blood Count 3.74 L 4.5-5.90 10^6/uL Hemoglobin 11.8 L 13.5-17.5 g/dL Hematocrit 35.0 L 41.0-53.0 % Mean Corpuscular Volume 93.5 80.0-100.0 fL Mean Corpuscular Hemoglobin 31.5 28.0-32.0 pg Mean Corpuscular Hemoglobin Concent 33.7 32.0-36.0 g/dL Red Cell Distribution Width 15.6 H 11.8-14.3 % Platelet Count 308 140-450 10^3/uL Mean Platelet Volume 6.6 L 6.9-10.8 fL Neutrophils (%) (Auto) 75.3 37.0-80.0 % Lymphocytes (%) (Auto) 9.3 L 10.0-50.0 % Monocytes (%) (Auto) 9.6 0.0-12.0 % Eosinophils (%) (Auto) 4.5 0.0-7.0 % Basophils (%) (Auto) 1.3 0.0-2.0 % Neutrophils # (Auto) 5.6 1.6-8.6 10 ^3/uL Lymphocytes # (Auto) 0.7 0.4-5.4 10 ^3/uL Monocytes # (Auto) 0.7 0-1.3 10 ^3/uL Eosinophils # (Auto) 0.3 0-0.8 10 ^3/uL Basophils # (Auto) 0.1 0-0.2 10 ^3/uL Nucleated Red Blood Cells 0.1 % Sodium Level 135 L 136-145 mmol/L Potassium Level 4.2 3.5-5.1 mmol/L Chloride Level 98 98-107 mmol/L Carbon Dioxide Level 23 20-31 mmol/L Anion Gap 14 5-15 Blood Urea Nitrogen 37 H 9-23 mg/dL Creatinine 7.91 H 0.700-1.30 mg/dL Glomerular Filtration Rate Calc 7 >90 mL/min BUN/Creatinine Ratio 4.7 L 10.0-20.0 Serum Glucose 162 H 74-106 mg/dL Calcium Level 10.9 H 8.7-10.4 mg/dL Total Bilirubin 0.2 0.2-1.0 mg/dL Aspartate Amino Transferase (AST) 27 13-40 U/L Alanine Aminotransferase (ALT) 22 7-40 U/L Alkaline Phosphatase 77 46-116 U/L Troponin I High Sensitivity 37 </=54 ng/L Total Protein 7.7 5.7-8.2 g/dL Albumin 4.6 3.2-4.8 g/dL Salicylates Level < 3.0 -30 mg/dL Acetaminophen Level < 2.0 L 10.0-20.0 UG/ML Plasma/Serum Blood Alcohol 6.7 <10 mg/dL Assessment End-stage renal disease on hemodialysis Hypertension Coronary artery disease History of polysubstance abuse Altered mental state likely in the setting of illicit drug use Hemodialysis treatment today as per patient's schedule Recommend confirmation of patient's outpatient dialysis schedule tear time and location. From a nephrology standpoint patient can resume outpatient dialysis treatment after Plan discussed with: Patient YULI QUINONES MD Jan 13, 2025 14:58
[2025-01-13] MEDS ORDERED: SODIUM CHL 0.9% 1000 ML BAG XX ONE (15:00)
[2025-01-13] MEDS: ATORVASTATIN 20 MG TAB PO SCH (21:52)
[2025-01-13] MEDS ORDERED: HYDR-4902 PO (23:08)
[2025-01-14] VITALS (8 sets, daily range): BP systolic 130–155; BP diastolic 71–92; PULSE 56–82; RESP 15–18; TEMP 97.8–98.7; O2SAT 96–100
[2025-01-14] MEDS: hydrOXYzine HCL 10 MG TAB PO ONE (00:44)
[2025-01-14] MEDS: DOCUSATE SOD 100 MG CAP PO PRN (00:45)
[2025-01-14] MEDS: HYDROcodone-ACET 5/325MG TAB PO ONE (04:14)
[2025-01-14 06:49] LABS: Anion Gap 13 (5-15); Carbon Dioxide 26 mmol/L (20-31)
[2025-01-14 07:35] LABS: Blood Urea Nitrogen 29 mg/dL (9-23); Chloride 96 mmol/L (98-107); Glucose 130 mg/dL (74-106); Sodium 135 mmol/L (136-145)
--- NOTE | 2025-01-14 10:23 | DVHPN2 ---
Progress Note Date Seen: Jan 14, 2025 Medical Necessity Reason Pt with a Central, PICC or Fol: No Subjective Patient reports: Feels better Objective vital signs Vital Sign Date Time Temp Pulse Resp B/P (MAP) Pulse Ox O2 Delivery O2 Flow Rate FiO2 01/14/25 09:00 98.2 62 15 148/88 (108) 99 98.2 01/13/25 20:00 Room Air* 0 21 Total Intake and Output 01/13/25 01/13/25 01/14/25 15:00 23:00 07:00 Intake Total 236 ml 800 ml Balance 236 ml 800 ml medications Current Medications Medications Dose Ordered Sig/Harsh Route Start Time Stop Time Status Last Admin Dose Admin Nitroglycerin 0.4 mg Q5MINP PRN SL 01/13/25 00:00 Apixaban 5 mg BID PO 01/13/25 10:00 01/14/25 08:20 5 MG Calcium Acetate 667 mg TIDWMEALS PO 01/13/25 08:00 01/14/25 08:19 667 MG Carvedilol 3.125 mg Q12HR PO 01/13/25 10:00 01/14/25 08:20 3.125 MG Hydralazine HCl 25 mg Q8HR PO 01/13/25 06:00 01/14/25 05:30 25 MG Nifedipine 60 mg DAILY PO 01/13/25 10:00 01/14/25 08:19 60 MG Sevelamer HCl 800 mg TIDWM PO 01/13/25 08:00 01/14/25 08:19 800 MG Atorvastatin Calcium 10 mg HS PO 01/13/25 22:00 01/13/25 21:52 10 MG Ondansetron HCl 4 mg Q4HP PRN IV 01/13/25 00:00 Hydralazine HCl 10 mg Q6HP PRN IV 01/13/25 14:00 Docusate Sodium 100 mg DAILYPRN PRN PO 01/13/25 23:00 01/14/25 00:45 100 MG Examination: GENERAL:Normal, CVS:Normal, SKIN:Normal laboratory and microbiology Laboratory Tests 01/14/25 05:52 01/12/25 18:44 Test 01/14/25 05:52 Range/Units Serum Glucose 130 H 74-106 mg/dL Problem List/Assessment/Plan Problem List/Assessment/Plan End-stage renal disease on hemodialysis Hypertension Coronary artery disease History of polysubstance abuse Altered mental state likely in the setting of illicit drug use tolerated HD yesterday rec patient return to his outpatient dialysis unit resume home medications Plan discussed with: Patient My Orders My Orders Orders - YULI QUINONES MD Procedure Category Date Status Time Hemodialysis Orders ORDERS 01/13/25 Transmitted 14:58 Dialysis Nursing LELIA 01/13/25 In Process Message 14:58 Document Fluid Input LELIA 01/13/25 In Process And Outpu 14:58 Acute Hepatitis Panel LAB 01/13/25 In Process 14:58 YULI QUINONES MD Jan 14, 2025 10:23
[2025-01-14 10:59] LABS: Hepatitis A Ab IgM Negative; Hepatitis B Core IgM Negative (Negative); Hepatitis B Surface Antigen Positive (Negative); Hepatitis C Antibody Negative (Negative)
[2025-01-14] MEDS: ALPRAZolam 0.5 MG TAB PO PRN (11:17)
--- NOTE | 2025-01-14 12:13 | DVHPN2 ---
Subjective Patient is seen and examined at bedside. No complaint today. Reviewed: Care Plan, H&P, Labs, Medications, Previous Orders, Radiology Changes from previous H/P or p: No Changes Objective Vitals Vital Signs Date Time Temp Pulse Resp B/P (MAP) Pulse Ox O2 Delivery O2 Flow Rate FiO2 01/14/25 09:00 98.2 62 15 148/88 (108) 99 98.2 01/14/25 08:00 Room Air* 0 21 Intake/Output Intake and Output 01/14/25 07:00 Intake Total 1036 ml Balance 1036 ml Intake Oral 1036 ml # Voids 3 General Appearance: Alert, Cooperative, No acute distress HEENT: Atraumatic, PERRLA, EOMI, Mucous membr. moist/pink Neck: Supple Lungs: Clear to auscultation, Normal air movement Cardiovascular: Regular rate, Normal S1, Normal S2, No murmurs, Gallops, Rubs Abdomen: Normal bowel sounds, Soft, No tenderness Neuro: Cranial nerves 3-12 NL Psych/Mental Status: Mental status NL Medications Current Medications Medications Dose Ordered Sig/Harsh Route Start Time Stop Time Status Last Admin Dose Admin Nitroglycerin 0.4 mg Q5MINP PRN SL 01/13/25 00:00 Apixaban 5 mg BID PO 01/13/25 10:00 01/14/25 08:20 5 MG Calcium Acetate 667 mg TIDWMEALS PO 01/13/25 08:00 01/14/25 08:19 667 MG Carvedilol 3.125 mg Q12HR PO 01/13/25 10:00 01/14/25 08:20 3.125 MG Hydralazine HCl 25 mg Q8HR PO 01/13/25 06:00 01/14/25 05:30 25 MG Nifedipine 60 mg DAILY PO 01/13/25 10:00 01/14/25 08:19 60 MG Sevelamer HCl 800 mg TIDWM PO 01/13/25 08:00 01/14/25 08:19 800 MG Atorvastatin Calcium 10 mg HS PO 01/13/25 22:00 01/13/25 21:52 10 MG Ondansetron HCl 4 mg Q4HP PRN IV 01/13/25 00:00 Hydralazine HCl 10 mg Q6HP PRN IV 01/13/25 14:00 Docusate Sodium 100 mg DAILYPRN PRN PO 01/13/25 23:00 01/14/25 00:45 100 MG Alprazolam 2 mg Q8HPRN PRN PO 01/14/25 11:00 01/14/25 11:17 2 MG Laboratory Results Laboratory Tests 01/12/25 18:44 01/14/25 05:52 Chemistry Test 01/14/25 05:52 Calcium Level 11.0 mg/dL (8.7-10.4) H Labs and/or images reviewed: Labs reviewed by me Assessment/Plan Assessment/Plan Toxic encephalopathy End-stage renal disease, dialysis dependent Hypertension Elevated troponin, demand ischemia Continuing current management. Dialysis per schedule. Continuing hypertensive medication. Hydralazine p.r.n. This medical document was created using an electronic medical record system with [employer] dictation system. Although this document has been carefully reviewed, there may still be some phonetic and typographical errors. These areas are purely typographical due to imperfections of the software programs, and do not reflect any compromise in the patient's medical care. Plan discussed with: Patient My Orders Orders - MARGUERITE TA MD Procedure Category Date Status Time Hydralazine Injection PHA 01/13/25 In Process (Apresoline Inject 14:00 Alprazolam Tablet PHA 01/14/25 In Process (Xanax Tablet) 11:00 Date of Service: Jan 14, 2025 Billing Provider: MARGUERITE TA MD Common Visit Codes: [id number] INP/OBS CARE(HIGH) MARGUERITE TA MD Jan 14, 2025 12:13
[2025-01-15] MEDS: LORazepam 2MG/ML-1ML VIAL IV ONE (00:30)
[2025-01-15 01:00] VITALS: BP 172/99; PULSE 81; RESP 18; TEMP 98; O2SAT 97
[2025-01-15 05:00] VITALS: BP 164/81; PULSE 86; RESP 19; TEMP 98.7; O2SAT 97
[2025-01-15 08:00] VITALS: PULSE 74; RESP 18; O2SAT 97
--- NOTE | 2025-01-15 08:36 | DVHPN2 ---
Progress Note Date Seen: Jan 15, 2025 Medical Necessity Reason Pt with a Central, PICC or Fol: No Subjective Patient reports: No new complaints Objective vital signs Vital Sign Date Time Temp Pulse Resp B/P (MAP) Pulse Ox O2 Delivery O2 Flow Rate FiO2 01/15/25 06:00 164/81 01/15/25 05:00 98.7 86 19 97 98.7 01/14/25 20:00 Room Air* 0 21 Total Intake and Output 01/14/25 01/14/25 01/15/25 15:00 23:00 07:00 Intake Total 1240 ml 750 ml Balance 1240 ml 750 ml medications Current Medications Medications Dose Ordered Sig/Harsh Route Start Time Stop Time Status Last Admin Dose Admin Nitroglycerin 0.4 mg Q5MINP PRN SL 01/13/25 00:00 Apixaban 5 mg BID PO 01/13/25 10:00 01/14/25 21:48 5 MG Calcium Acetate 667 mg TIDWMEALS PO 01/13/25 08:00 01/15/25 08:19 667 MG Carvedilol 3.125 mg Q12HR PO 01/13/25 10:00 01/14/25 21:49 3.125 MG Hydralazine HCl 25 mg Q8HR PO 01/13/25 06:00 01/15/25 06:00 25 MG Nifedipine 60 mg DAILY PO 01/13/25 10:00 01/14/25 08:19 60 MG Sevelamer HCl 800 mg TIDWM PO 01/13/25 08:00 01/15/25 08:19 800 MG Atorvastatin Calcium 10 mg HS PO 01/13/25 22:00 01/14/25 21:50 10 MG Ondansetron HCl 4 mg Q4HP PRN IV 01/13/25 00:00 Hydralazine HCl 10 mg Q6HP PRN IV 01/13/25 14:00 Docusate Sodium 100 mg DAILYPRN PRN PO 01/13/25 23:00 01/14/25 00:45 100 MG Alprazolam 2 mg Q8HPRN PRN PO 01/14/25 11:00 01/14/25 21:50 2 MG Examination: GENERAL:Normal, CVS:Normal laboratory and microbiology Laboratory Tests 01/14/25 05:52 01/12/25 18:44 Test 01/14/25 05:52 Range/Units Serum Glucose 130 H 74-106 mg/dL Problem List/Assessment/Plan Problem List/Assessment/Plan End-stage renal disease on hemodialysis Hypertension Coronary artery disease History of polysubstance abuse Altered mental state likely in the setting of illicit drug use HD today per schedule rec patient return to his outpatient dialysis unit resume home medications Plan discussed with: Patient My Orders My Orders Orders - YLUI QUINONES MD Procedure Category Date Status Time Communication Order ORDERS 01/14/25 Transmitted 10:23 YULI QUINONES MD Jan 15, 2025 08:36
[2025-01-15 09:28] VITALS: BP 187/114; PULSE 74; RESP 18; TEMP 97.6; O2SAT 97
--- NOTE | 2025-01-15 12:44 | DVHPN2 ---
Subjective Patient is seen and examined at bedside. No complaint today. Reviewed: Care Plan, H&P, Labs, Medications, Previous Orders, Radiology Objective Vitals Vital Signs Date Time Temp Pulse Resp B/P (MAP) Pulse Ox O2 Delivery O2 Flow Rate FiO2 01/15/25 09:28 97.6 74 18 187/114 (138) 97 97.6 01/15/25 08:00 Room Air* 0 21 Intake/Output Intake and Output 01/15/25 07:00 Intake Total 1990 ml Balance 1990 ml Intake Oral 1990 ml # Voids 4 General Appearance: Alert, Cooperative, No acute distress HEENT: Atraumatic, PERRLA, EOMI, Mucous membr. moist/pink Neck: Supple Lungs: Clear to auscultation, Normal air movement Cardiovascular: Regular rate, Normal S1, Normal S2, No murmurs, Gallops, Rubs Abdomen: Normal bowel sounds, Soft, No tenderness Neuro: Cranial nerves 3-12 NL Psych/Mental Status: Mental status NL Medications Current Medications Medications Dose Ordered Sig/Harsh Route Start Time Stop Time Status Last Admin Dose Admin Nitroglycerin 0.4 mg Q5MINP PRN SL 01/13/25 00:00 Apixaban 5 mg BID PO 01/13/25 10:00 01/15/25 09:15 5 MG Calcium Acetate 667 mg TIDWMEALS PO 01/13/25 08:00 01/15/25 11:32 667 MG Carvedilol 3.125 mg Q12HR PO 01/13/25 10:00 01/15/25 09:15 3.125 MG Hydralazine HCl 25 mg Q8HR PO 01/13/25 06:00 01/15/25 06:00 25 MG Nifedipine 60 mg DAILY PO 01/13/25 10:00 01/15/25 09:15 60 MG Sevelamer HCl 800 mg TIDWM PO 01/13/25 08:00 01/15/25 11:31 800 MG Atorvastatin Calcium 10 mg HS PO 01/13/25 22:00 01/14/25 21:50 10 MG Ondansetron HCl 4 mg Q4HP PRN IV 01/13/25 00:00 Hydralazine HCl 10 mg Q6HP PRN IV 01/13/25 14:00 Docusate Sodium 100 mg DAILYPRN PRN PO 01/13/25 23:00 01/14/25 00:45 100 MG Alprazolam 2 mg Q8HPRN PRN PO 01/14/25 11:00 01/15/25 09:14 2 MG Laboratory Results Laboratory Tests 01/12/25 18:44 01/14/25 05:52 Assessment/Plan Assessment/Plan Toxic encephalopathy End-stage renal disease, dialysis dependent Hypertension Elevated troponin, demand ischemia Continuing current management. Dialysis per schedule. Continuing hypertensive medication. Hydralazine p.r.n. This medical document was created using an electronic medical record system with [employer] direct computerized dictation system. Although this document has been carefully reviewed, there may still be some phonetic and typographical errors. These areas are purely typographical due to imperfections of the software programs, and do not reflect any compromise in the patient's medical care. MARGUERITE TA MD Jan 15, 2025 12:43
[2025-01-15 13:00] VITALS: BP 181/114; PULSE 73; RESP 16; TEMP 97.5; O2SAT 97
[2025-01-15] MEDS: LORazepam 2MG/ML-1ML VIAL IV PRN (14:39)
[2025-01-15 17:27] VITALS: BP 184/105; PULSE 80; RESP 17; TEMP 97.9; O2SAT 97
[2025-01-15] MEDS: hydrALAZINE HCL 20 MG/ML VL IV PRN (17:33)
--- NOTE | 2025-01-19 10:10 | DVHDS2 ---
Discharge Summary Date of Admission Jan 12, 2025 at 23:55 Date of Discharge: Jan 15, 2025 Admitting Diagnosis Toxic encephalopathy End-stage renal disease, dialysis dependent Hypertension Elevated troponin, demand ischemia Labs/Diagnostic Data: Laboratory Results Test 01/14/25 05:52 01/13/25 05:51 01/12/25 22:37 01/12/25 18:44 Sodium Level 135 mmol/L (136-145) Potassium Level 4.0 mmol/L (3.5-5.1) Chloride Level 96 mmol/L (98-107) Carbon Dioxide Level 26 mmol/L (20-31) Anion Gap 13 (5-15) Blood Urea Nitrogen 29 mg/dL (9-23) Creatinine 7.18 mg/dL (0.700-1.30) Glomerular Filtration Rate Calc 8 mL/min (>90) BUN/Creatinine Ratio 4.0 (10.0-20.0) Serum Glucose 130 mg/dL (74-106) Calcium Level 11.0 mg/dL (8.7-10.4) Hepatitis A IgM Antibody Negative Hepatitis B Surface Antigen Positive (Negative) Hepatitis B Core IgM Antibody Negative (Negative) Hepatitis C Antibody Negative (Negative) Troponin I High Sensitivity 123 ng/L (</=54) White Blood Count 7.5 10^3/uL (4.4-10.8) Red Blood Count 3.74 10^6/uL (4.5-5.90) Hemoglobin 11.8 g/dL (13.5-17.5) Hematocrit 35.0 % (41.0-53.0) Mean Corpuscular Volume 93.5 fL (80.0-100.0) Mean Corpuscular Hemoglobin 31.5 pg (28.0-32.0) Mean Corpuscular Hemoglobin Concent 33.7 g/dL (32.0-36.0) Red Cell Distribution Width 15.6 % (11.8-14.3) Platelet Count 308 10^3/uL (140-450) Mean Platelet Volume 6.6 fL (6.9-10.8) Neutrophils (%) (Auto) 75.3 % (37.0-80.0) Lymphocytes (%) (Auto) 9.3 % (10.0-50.0) Monocytes (%) (Auto) 9.6 % (0.0-12.0) Eosinophils (%) (Auto) 4.5 % (0.0-7.0) Basophils (%) (Auto) 1.3 % (0.0-2.0) Neutrophils # (Auto) 5.6 10 ^3/uL (1.6-8.6) Lymphocytes # (Auto) 0.7 10 ^3/uL (0.4-5.4) Monocytes # (Auto) 0.7 10 ^3/uL (0-1.3) Eosinophils # (Auto) 0.3 10 ^3/uL (0-0.8) Basophils # (Auto) 0.1 10 ^3/uL (0-0.2) Nucleated Red Blood Cells 0.1 % Total Bilirubin 0.2 mg/dL (0.2-1.0) Aspartate Amino Transferase (AST) 27 U/L (13-40) Alanine Aminotransferase (ALT) 22 U/L (7-40) Alkaline Phosphatase 77 U/L (46-116) Total Protein 7.7 g/dL (5.7-8.2) Albumin 4.6 g/dL (3.2-4.8) Salicylates Level < 3.0 mg/dL (-30) Acetaminophen Level < 2.0 UG/ML (10.0-20.0) Plasma/Serum Blood Alcohol 6.7 mg/dL (<10) Other Laboratory Tests 01/14/25 05:52 01/12/25 18:44 Brief Hx & Hospital Course: This is a 54 years old male come to emergency department because of altered mental status. The patient was found unresponsive by EMS. Patient roommate stated that he might be overdose on fentanyl. Patient was given Narcan and he waking up. Patient does have elevation of troponin level. He also a dialysis patient. Patient was admitted. Dialysis was done. Echo was done showed:Lvef 55%,moderate LVH, severe MAC, moderate mitral stenosis mean gradient 5 mmhg ,mild tricuspid regurgitation, moderate mitral regurgitation,left atrium enlarged, s/p AVR,mild tricuspid regurgitation. While waiting for further cardiac workup the patient left against medical advice. The patient verbally understand the consequences of leaving against medical advice. Patient may be sicker or end up back in the hospital but he still choose to leave against medical advice. Physical exam: HEENT: Normocephalic atraumatic pupils equal react to light and accommodation. Extraocular muscles intact, conjunctiva pink, oropharynx moist, no thrush, no exudate. Lymphatic: No lymphadenopathy Cardiovascular exam: S1, S2 was heard. No murmurs, rubs, gallops Lung: Clear on auscultation bilaterally, no wheeze, rale, rhonchi. GI: Abdominal soft, nondistended, nontenderness, positive bowel sounds. Extremity: No crepitus, cyanosis, edema. Pedal pulses present bilateral. Full range of motion. Skin: Normal turgor, no rash. Psych: Alert, oriented x3. Neurology: No focal deficits, cranial nerve II to XII grossly intact. This medical document was created using an electronic medical record system with [employer] direct computerized dictation system. Although this document has been carefully reviewed, there may still be some phonetic and typographical errors. These areas are purely typographical due to imperfections of the software programs, and do not reflect any compromise in the patient's medical care. Condition at Discharge: Guarded Final Diagnosis/Problems List Toxic encephalopathy End-stage renal disease, dialysis dependent Hypertension Elevated troponin, demand ischemia Discharge Disposition: AMA Discharge Statement: "Patient was advised to return to the ER or call 911 if any headaches, dizziness, shortness of breath, chest pain, abdominal pain, bleeding, fevers, or worsening of medical condition. Patient was counseled about treatment plan, medications, possible side effects, patientverbalized understanding. All questions were answered to the best of my ability. This discharge took greater then 30 minutes in planning, reviewing documentation, counseling the patient, and discussing with other team members." ASSESSMENT ASSESSMENT Assessment Date of Service: Jan 15, 2025 Billing Provider: MARGUERITE TA MD Common Visit Codes: [id number]/[id number] DISCH DAY >30min MARGUERITE TA MD Jan 19, 2025 10:10
== END 2025-01-15 19:30 | disposition left against medical advice (07) | DRG 812 ==
LOC: EDBD 18:20 → ER 18:20 → OVERFLOW 23:55 → TELE-WESTW 01-13 02:20
PROVIDERS: ADMIT Internal Medicine; ATTEND Internal Medicine
PROC: 5A1D70Z Performance of Urinary Filtration, Intermittent, Less than 6 Hours Per Day (ICD-10-PCS; principal; 2025-01-13)
DX: T40.601A Poisoning by unspecified narcotics, accidental (unintentional), initial encounter (principal); G92.9 Unspecified toxic encephalopathy; I12.0 Hypertensive chronic kidney disease with stage 5 chronic kidney disease or end stage renal disease; I24.89 Other forms of acute ischemic heart disease; N18.6 End stage renal disease; Z53.29 Procedure and treatment not carried out because of patient's decision for other reasons; I25.10 Atherosclerotic heart disease of native coronary artery without angina pectoris; Z82.49 Family history of ischemic heart disease and other diseases of the circulatory system; Z88.6 Allergy status to analgesic agent; Z88.5 Allergy status to narcotic agent; Z99.2 Dependence on renal dialysis; Z95.1 Presence of aortocoronary bypass graft; Z91.199 Patient's noncompliance with other medical treatment and regimen due to unspecified reason; Z79.01 Long term (current) use of anticoagulants; Z79.2 Long term (current) use of antibiotics; Z87.891 Personal history of nicotine dependence; Y92.89 Other specified places as the place of occurrence of the external cause
CPT/HCPCS: 36415; 71045; 80048; 80053; 80074; 80320; 80329; 84484; 85025; 90935; 93005; 93306; G0378; J1642

== ENCOUNTER 2025-02-01 21:16 | Emergency (ER) | payer MEDICAID ==
[~2025-02-01] VITALS: Ht 185.4 cm; Wt 77.3 kg
[~2025-02-01 21:16] MED LIST changes: +HYDR-4902 PO; +HYDR50TA69 PO; -METO1TAB9 PO
[2025-02-01 21:47] LABS: Basophils # (auto) 0.1 10 ^3/uL (0-0.2); Basophils % (auto) 1.3 % (0.0-2.0); Eosinophils # (auto) 0.3 10 ^3/uL (0-0.8); Hemoglobin 12.7 g/dL (13.5-17.5); Lymphocytes # (auto) 0.6 10 ^3/uL (0.4-5.4); Lymphocytes % (auto) 9.3 % (10.0-50.0); Mean Corpuscular Hemoglobin 32.2 pg (28.0-32.0); Mean Corpuscular Hgb Conc. 34.4 g/dL (32.0-36.0); Mean Corpuscular Volume 93.5 fL (80.0-100.0); Monocytes # (auto) 0.5 10 ^3/uL (0-1.3); Neutrophils # (auto) 5.2 10 ^3/uL (1.6-8.6); Neutrophils % (auto) 78.4 % (37.0-80.0); Platelet Count (auto) 334 10^3/uL (140-450); Red Blood Cells 3.95 10^6/uL (4.5-5.90); Red Cell Distribution Width 15.7 % (11.8-14.3); White Blood Cell 6.7 10^3/uL (4.4-10.8)
--- NOTE | 2025-02-01 22:02 | ED.PDOC ---
History of Present Illness Chief Complaint: Overdose Comments 54-year-old male with a history of end-stage renal failure on dialysis Tuesdays and Saturdays, apparently received dialysis in [place] and did receive it today on Friday. Patient now presents by EMS after he was found in a house with drug paraphernalia unresponsive. Patient was given Narcan by EMS and immediately woke up. Patient is now alert with GCS of 15 and no complaints. P atient states that he did get dialysis today and denies any shortness of breath. Time Seen by MD: 21:17 Primary Care Provider: UNKNOWN Allergies: Coded Allergies: NO KNOWN ALLERGIES (Unverified , 01/28/25) Information Source: Patient, Emergency Med Personnel Mode of Arrival: Ambulatory Severity: Severe, Other (resolved after narcan) Timing: Hours Duration: Since onset Past Medical History PAST MEDICAL HISTORY: CKF, HTN, [place] Surgical History: CABG Family History Family History: Reviewed,noncontributory to illness, Unknown Social History Smoker: Non-Smoker Alcohol: Denies ETOH Use Drugs: Marijuana Lives In: Home Physical Exam General Appearance: Mild Distress HEENT: Normal ENT Inspection, Pharynx Normal, TMs Normal Neck: Full Range of Motion, Non-Tender, Normal, Normal Inspection Respiratory: Chest Non-Tender, Lungs Clear, No Accessory Muscle Use, No Respiratory Distress, Normal Breath Sounds Cardiovascular: No Edema, No JVD, No Murmur, No Gallop, Normal Peripheral Pulses, Regular Rate/Rhythm Breast Exam: Deferred Gastrointestinal: No Organomegaly, Non Tender, No Pulsatile Mass, Normal Bowel Sounds, Soft Genitalia: Deferred Pelvic: Deferred Rectal: Deferred Extremities: No calf tenderness, Normal capillary refill, Normal inspection, Normal range of motion, Non-tender, No pedal edema Musculoskeletal : Apperance: Normal Neurologic: Alert, 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 Was a procedure done?: No Differential Dx Considerations may include: Differential diagnosis includes but is not limited to: cardiac arrythmia, dehydration, sepsis, electrolyte abnormality, symptomatic anemia, hypovolemia and others X-Ray, Labs, Meds, VS Vital Signs Date Time Temp Pulse Resp B/P (MAP) Pulse Ox O2 Delivery O2 Flow Rate FiO2 02/02/25 02:32 182/107 02/02/25 02:30 15 95 Room Air* 0 21 21 02/02/25 02:28 98.3 73 14 182/107 (132) 92 98.3 02/02/25 02:05 80 02/01/25 21:20 97.7 95 18 165/105 (125) 98 97.7 Lab Test 02/01/25 21:41 Range/Units White Blood Count 6.7 4.4-10.8 10^3/uL Red Blood Count 3.95 L 4.5-5.90 10^6/uL Hemoglobin 12.7 #L 13.5-17.5 g/dL Hematocrit 37.0 #L 41.0-53.0 % Mean Corpuscular Volume 93.5 80.0-100.0 fL Mean Corpuscular Hemoglobin 32.2 H 28.0-32.0 pg Mean Corpuscular Hemoglobin Concent 34.4 32.0-36.0 g/dL Red Cell Distribution Width 15.7 H 11.8-14.3 % Platelet Count 334 140-450 10^3/uL Mean Platelet Volume 6.6 L 6.9-10.8 fL Neutrophils (%) (Auto) 78.4 37.0-80.0 % Lymphocytes (%) (Auto) 9.3 L 10.0-50.0 % Monocytes (%) (Auto) 7.0 0.0-12.0 % Eosinophils (%) (Auto) 4.0 0.0-7.0 % Basophils (%) (Auto) 1.3 0.0-2.0 % Neutrophils # (Auto) 5.2 1.6-8.6 10 ^3/uL Lymphocytes # (Auto) 0.6 0.4-5.4 10 ^3/uL Monocytes # (Auto) 0.5 0-1.3 10 ^3/uL Eosinophils # (Auto) 0.3 0-0.8 10 ^3/uL Basophils # (Auto) 0.1 0-0.2 10 ^3/uL Nucleated Red Blood Cells 0.0 % Sodium Level 137 136-145 mmol/L Potassium Level 3.8 3.5-5.1 mmol/L Chloride Level 95 L 98-107 mmol/L Carbon Dioxide Level 29 20-31 mmol/L Anion Gap 13 5-15 Blood Urea Nitrogen 22 9-23 mg/dL Creatinine 5.74 H 0.700-1.30 mg/dL Glomerular Filtration Rate Calc 11 >90 mL/min BUN/Creatinine Ratio 3.8 L 10.0-20.0 Serum Glucose 155 H 74-106 mg/dL Calcium Level 11.1 H 8.7-10.4 mg/dL Total Bilirubin 0.3 0.2-1.0 mg/dL Aspartate Amino Transferase (AST) 25 13-40 U/L Alanine Aminotransferase (ALT) 24 7-40 U/L Alkaline Phosphatase 92 46-116 U/L Total Protein 8.3 H 5.7-8.2 g/dL Albumin 4.9 H 3.2-4.8 g/dL Salicylates Level < 3.0 -30 mg/dL Acetaminophen Level < 2.0 L 10.0-20.0 UG/ML Plasma/Serum Blood Alcohol 3.9 <10 mg/dL Current Medications Medications (Trade) Dose Ordered Sig/Harsh Route Start Time Stop Time Status Last Admin Hydralazine HCl (Apresoline Tablet) 50 mg ONCE ONCE PO 02/02/25 02:30 02/02/25 02:31 DC 02/02/25 02:32 Acetaminophen (Tylenol Tablet) 650 mg ONCE ONCE PO 02/02/25 03:00 02/02/25 03:01 DC 02/02/25 03:00 Time of 1ST Reevaluation: 22:06 Reevaluation 1ST: Improved Patient Education/Counseling: Diagnosis, Treatment Family Education/Counseling: No Family Present Departure 1 Departure Time of Disposition: 02:00 Impression: Primary Impression: ESRD on dialysis Additional Impression: Opiate overdose Disposition: 01 HOME / SELF CARE / HOMELESS Condition: Stable Discharged With: Self Critical Care Note Critical Care Time?: No Stability Stability form required: No Heart Score Heart Score: Heart Score Response (Comments) Value History N/A 0 EKG N/A 0 Age N/A 0 Risk Factors N/A 0 Troponin N/A 0 Total 0 EPHRAIM LESTER MD February 01, 2025 22:02
[2025-02-01 22:05] LABS: Alanine Aminotransferase 24 U/L (7-40); Alkaline Phosphatase 92 U/L (46-116); Anion Gap 13 (5-15); Aspartate Aminotransferase 25 U/L (13-40); BUN/Creatinine Ratio 3.8 (10.0-20.0); Bilirubin, Total 0.3 mg/dL (0.2-1.0); Blood Alcohol 3.9 mg/dL (<10); Blood Urea Nitrogen 22 mg/dL (9-23); Carbon Dioxide 29 mmol/L (20-31); Potassium 3.8 mmol/L (3.5-5.1); Sodium 137 mmol/L (136-145)
[2025-02-01 22:51] LABS: Acetaminophen < 2.0 UG/ML (10.0-20.0); Albumin 4.9 g/dL (3.2-4.8); Calcium 11.1 mg/dL (8.7-10.4); Chloride 95 mmol/L (98-107); Glucose 155 mg/dL (74-106); Salicylate < 3.0 mg/dL (-30); Total Protein 8.3 g/dL (5.7-8.2)
--- NOTE | 2025-02-02 00:21 | DVH ---
CHEST RADIOGRAPH Indication: ESRD fluid overload Technique: Single frontal view of the chest was obtained COMPARISON: XY CHEST PORTABLE on DOS: 01/28/25 FINDINGS: Lines and Tubes: Left PermCath terminates at the level of the cavoatrial junction. Lungs: Clear Pleura: No effusion. No pneumothorax. Cardiomediastinal contours: Unremarkable. Median sternotomy sutures. Bones: Unremarkable IMPRESSION: 1. No acute disease. 2. Left PermCath.
[2025-02-02 02:28] VITALS: BP 182/107; PULSE 73; TEMP 98.3
[2025-02-02 02:30] VITALS: RESP 15; O2SAT 95
[2025-02-02] MEDS: hydrALAZINE HCL 25 MG TAB PO ONE (02:32)
[2025-02-02] MEDS: ACETAMINOPHEN 325 MG TAB PO ONE (03:00)
--- NOTE | 2025-02-03 09:49 | ECG ---
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
== END 2025-02-02 03:18 | disposition home or self-care (01) ==
LOC: ER 21:16 → EDBD 21:16 → MERGE 21:16 → ER 02-02 03:18
DX: T40.601A Poisoning by unspecified narcotics, accidental (unintentional), initial encounter (principal); I25.2 Old myocardial infarction; N18.6 End stage renal disease; I21.9 Acute myocardial infarction, unspecified; Z95.1 Presence of aortocoronary bypass graft; Z99.2 Dependence on renal dialysis; Y92.098 Other place in other non-institutional residence as the place of occurrence of the external cause
CPT/HCPCS: 36415; 71045; 80053; 80320; 80329; 85025; 93005

== ENCOUNTER 2025-02-12 04:09 | Inpatient (IN) | payer MEDICAID ==
[~2025-02-12] VITALS: Ht 185.4 cm; Wt 76.4 kg
--- NOTE | 2025-02-12 04:28 | ED.PDOC ---
History of Present Illness HPI Comments 54-year-old male came to ER via EMS for shortness of breath. Patient has history of hypertension, congestive heart failure, end-stage renal disease, currently on dialysis every Friday, , Friday, status post CABG. Patient's states he was unable to get his dialysis session last Friday and . Patient feels short of breath and swollen and states he could not wait for his scheduled dialysis session today at 1030am. HE as been having headaches, dizziness and feels his anxiety acting up again. 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 NO ASPIRIN, 03/04/14) Dexamethasone (Verified Allergy, Unknown, ITCHING, 03/04/14) Ketorolac (Verified Allergy, Unknown, ITCHING, 03/04/14) Morphine (Verified Allergy, Unknown, 06/18/16) Home Meds Active Scripts Sulfamethoxazole-Trimethoprim (Bactrim) 1 Tab Tab, 1 TAB PO BID for 7 Days, #14 MG Prov:DENNIS CAN DO 02/27/22 Cephalexin (KEFLEX 500) 500 Mg Cap, 1 CAP PO BID for 7 Days, #14 CAP Prov:DENNIS CAN DO 02/27/22 Hydralazine HCl (Hydralazine HCl) 25 Mg Tab, 25 MG PO Q8HR, #90 TAB Prov:DAX LAM MD 11/04/19 Clonidine Hydrochloride (Clonidine Hcl) 0.1 Mg Tab, 0.1 MG PO Q8HPRN PRN, #90 TAB Measure blood pressure prior to every dose. Take only if your systolic blood pressure or top number is above 160 mmHg Prov:DAX LAM MD 11/03/19 Nifedipine (Nifedipine Er) 30 Mg Tab, 60 MG PO DAILY, #30 TAB Prov:DAX LAM MD 11/03/19 Losartan Potassium (Losartan Potassium) 50 Mg Tab, 50 MG PO BID, #60 TAB Prov:DAX LAM MD 11/03/19 Calcium Acetate (PHOSLO CAPSULE) 667 Mg Cp, 1334 MG PO TIDWMEALS, #180 CAP Prov:DAX LAM MD 11/03/19 Carvedilol (COREG) 12.5 Mg Tab, 25 MG PO Q12HR, #60 TAB Prov:DAX LAM MD 11/03/19 Apixaban Base (ELIQUIS) 2.5 Mg Tab, 2.5 MG PO BID, #60 TAB Prov:DAX LAM MD 11/03/19 Omeprazole (PRILOSEC) 20 Mg Cap, 1 CAP PO DAILY, #90 CAP 1 Refill Prov:LUCIO PLUNKETT MD 09/01/17 Reported Medications Hydrocodone-Acetaminophen (Hydrocodone Bitartrate/AC 5-325 mg) 1 Tab Tab, 1 TAB PO, TAB 01/13/25 Hydroxyzine Hcl (Hydroxyzine Hcl) 50 Mg Tab, 50 MG PO BID PRN for FOR ITCHING MDD 100 mg for 30 Days, MG 01/13/25 Apixaban Base (Eliquis Starter Pack) 5 Mg Tab, 5 MG PO BID, TAB 11/02/19 Magnesium Citrate (Citrate of Magnesia) 1 [place] Socorro, 1 SOCORRO PO PRN for FOR CONSTIPATION 08/31/17 Sevelamer Hydrochloride (Renagel) 800 Mg Tab, 800 MG PO AC, TAB 02/16/16 Information Source: Patient, Emergency Med Personnel Mode of Arrival: EMS Severity: Moderate Timing: Hours Duration: Since onset Prehospital treatment: None Past Medical History PAST MEDICAL HISTORY: Anemia, Anxiety, CHF, Depression, ESRD, HTN Surgical History: CABG Family History Family History: Reviewed,noncontributory to illness, No family hx of Cancer, No family hx of DM, No family hx of HTN Social History Smoker: Quit Greater Than 1 Year, Cigarettes Alcohol: Denies ETOH Use Drugs: Marijuana Lives In: Other Constitutional: reports: weakness; denies: chills, diaphoresis, fatigue, fever, malaise, sweats, others EENTM: denies: blurred vision, double vision, ear bleeding, ear discharge, ear drainage, ear pain, ear ringing, eye pain, eye redness, hearing loss, mouth pain, mouth swelling, nasal discharge, nose bleeding, nose congestion, nose pain, photophobia, tearing, throat pain, throat swelling, voice changes, others Respiratory: reports: SOB at rest, shortness of breath, SOB with excertion; denies: cough, hemoptysis, orthopnea, stridor, wheezing, others Cardiovascular: denies: chest pain, dizzy spells, diaphoresis, Dyspnea on exertion, edema, irregular heart beat, left arm pain, lightheadedness, palpitations, PND, syncope, others Gastrointestinal: denies: abdomen distended, abdominal pain, blood streaked bowels, constipated, diarrhea, dysphagia, difficulty swallowing, hematemesis, melena, nausea, poor appetite, poor fluid intake, rectal bleeding, rectal pain, vomiting, others Neurological: reports: dizziness, headache; denies: fainting, left sided numbness, left sided weakness, numbness, paresthesia, pre-existing deficit, right sided numbness, right sided weakness, seizure, speech problems, tingling, tremors, weakness, others Musculoskeletal: denies: back pain, gout, joint pain, joint swelling, muscle pain, muscle stiffness, neck pain, others Integumetry: denies: bruises, change in color, change in hair/nails, dryness, laceration, lesions, lumps, rash, wounds, others Allergic/Immunocompromised: denies: Difficulty Healing, Frequent Infections, Hives, Itching, others Hematologic/Lymphatic: denies: anemia, blood clots, easy bleeding, easy brui sing, swollen glands, others Endocrine: denies: excessive hunger, excessive sweating, excessive thirst, ex cessive urination, flushing, intolerance to cold, intolerance to heat, unexplained weight gain, unexplained weight loss, others Psychiatric: reports: anxiety; denies: bipolar disorder, depression, hopeless, panic disorder, schizophrenia, sleepless, suicidal, others Physical Exam General Appearance: No Apparent Distress, Normal HEENT: Normal ENT Inspection, Pharynx Normal, TMs Normal Neck: Full Range of Motion, Non-Tender, Normal, Normal Inspection Respiratory: Chest Non-Tender, Lungs Clear, No Accessory Muscle Use, No Respiratory Distress, Normal Breath Sounds Cardiovascular: No Edema, No JVD, No Murmur, No Gallop, Normal Peripheral Pulses, Regular Rate/Rhythm Breast Exam: Deferred Gastrointestinal: No Organomegaly, Non Tender, No Pulsatile Mass, Normal Bowel Sounds, Soft Genitalia: Deferred Pelvic: Deferred Rectal: Deferred Extremities: No calf tenderness, Normal capillary refill, Normal inspection, Normal range of motion, Non-tender, No pedal edema Musculoskeletal : Apperance: Normal Neurologic: 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 Was a procedure done?: No Differential Dx Considerations may include: Anemia, electrolyte imbalance, end-stage renal disease, congestive heart failure, dialysis noncompliance, substance abuse X-Ray, Labs, Meds, VS Vital Signs Date Time Temp Pulse Resp B/P (MAP) Pulse Ox O2 Delivery O2 Flow Rate FiO2 02/12/25 04:09 97.7 87 18 164/98 (120) 95 97.7 Lab Test 02/12/25 04:37 Range/Units White Blood Count Pending Red Blood Count Pending Hemoglobin Pending Hematocrit Pending Mean Corpuscular Volume Pending Mean Corpuscular Hemoglobin Pending Mean Corpuscular Hemoglobin Concent Pending Red Cell Distribution Width Pending Platelet Count Pending Mean Platelet Volume Pending Neutrophils (%) (Auto) Pending Lymphocytes (%) (Auto) Pending Monocytes (%) (Auto) Pending Basophils (%) (Auto) Pending Neutrophils # (Auto) Pending Lymphocytes # (Auto) Pending Monocytes # (Auto) Pending Prothrombin Time 11.6 9.3-11.8 sec Prothrombin Time INR 1.11 0.9-1.15 Activated Partial Thromboplast Time 25.6 24.5-34.5 SEC Sodium Level Pending Potassium Level Pending Chloride Level Pending Carbon Dioxide Level Pending Anion Gap Pending Blood Urea Nitrogen Pending Creatinine Pending Glomerular Filtration Rate Calc Pending BUN/Creatinine Ratio Pending Serum Glucose Pending Calcium Level Pending Total Bilirubin Pending Aspartate Amino Transferase (AST) Pending Alanine Aminotransferase (ALT) Pending Alkaline Phosphatase Pending B-Type Natriuretic Peptide Pending Total Protein Pending Albumin Pending Time of 1ST Reevaluation: 04:22 Reevaluation 1ST: Unchanged Patient Education/Counseling: Diagnosis, Treatment Family Education/Counseling: No Family Present Departure 1 Departure Time of Disposition: 05:31 Impression: Primary Impression: End stage renal disease on dialysis Additional Impression: Fluid overload Disposition: ADMITTED INPATIENT Condition: Guarded Discharged With: Self Comments ESRD with Volume Overload and Missed Dialysis Chief Complaint: Shortness of breath and difficulty sleeping History of Present Illness: 54-year-old male with end-stage renal disease (ESRD) on scheduled hemodialysis (Friday, , Friday) presents to the ED with progressive shortness of breath, particularly when lying down at night, causing difficulty sleeping. Patient reports missing his scheduled dialysis session two days ago (). He also complains of a dull frontal headache. These symptoms are consistent with volume overload due to missed dialysis treatment. Review of Systems: Constitutional: Difficulty sleeping Respiratory: Shortness of breath, orthopnea Neurological: Frontal headache All other systems reviewed and negative Medications: Dialysis-related medications (specifics not provided in public health representative) Medical Decision Making: Summary Statement: 54-year-old male with ESRD presents with symptoms of volume overload after missing scheduled dialysis, requiring hospital admission. Problem List: 1. Volume overload, 2. Missed dialysis, 3. ESRD, 4. Shortness of breath, 5. Headache Differential Diagnosis: 1. Volume overload due to missed dialysis, 2. Acute coronary syndrome, 3. Pneumonia, 4. Uremic encephalopathy ED Course: Patient evaluated in ED with pending labs. Decision made to admit for urgent inpatient dialysis due to symptomatic volume overload. Assessment and Plan: 1. Volume Overload secondary to missed dialysis: - Admit to hospital for urgent hemodialysis - Monitor vital signs and fluid status - Serial physical exams 2. End-Stage Renal Disease: - Continue scheduled dialysis during admission - Nephrology consultation - Review and adjust medications as needed 3. Disposition: - Admit to Medical floor under Nephrology service - Urgent dialysis to be arranged Billing Information: ICD-10: N18.6 - End stage renal disease ICD-10: E87.70 - Fluid overload, unspecified ICD-10: Z91.15 - Patient's noncompliance with renal dialysis ICD-10: R06.00 - Dyspnea Critical Care Note Critical Care Time?: No Stability Stability form required: No Heart Score Heart Score: Heart Score Response (Comments) Value History N/A 0 EKG N/A 0 Age N/A 0 Risk Factors N/A 0 Troponin N/A 0 Total 0 I personally scribed for EPHRAIM LESTER MD ([email or web address]) on 02/12/25 at 04:28. Electronically submitted by Milad CassidyRCARRILLO). EPHRAIM LESTER MD February 12, 2025 04:28
[2025-02-12 04:53] LABS: Basophils # (auto) 0.1 10 ^3/uL (0-0.2); Basophils % (auto) 0.8 % (0.0-2.0); Eosinophils # (auto) 0.4 10 ^3/uL (0-0.8); Eosinophils % (auto) 6.1 % (0.0-7.0); Hematocrit 29.3 % (41.0-53.0); Lymphocytes # (auto) 0.6 10 ^3/uL (0.4-5.4); Lymphocytes % (auto) 7.9 % (10.0-50.0); Mean Corpuscular Hemoglobin 31.5 pg (28.0-32.0); Mean Corpuscular Hgb Conc. 34.1 g/dL (32.0-36.0); Mean Corpuscular Volume 92.4 fL (80.0-100.0); Monocytes # (auto) 0.4 10 ^3/uL (0-1.3); Monocytes % (auto) 5.2 % (0.0-12.0); Neutrophils # (auto) 5.8 10 ^3/uL (1.6-8.6); Nucleated Red Blood Cells % 0.1 %; Platelet Count (auto) 257 10^3/uL (140-450); Red Blood Cells 3.17 10^6/uL (4.5-5.90); Red Cell Distribution Width 14.6 % (11.8-14.3); White Blood Cell 7.3 10^3/uL (4.4-10.8)
[2025-02-12 05:06] LABS: INR 1.11 (0.9-1.15); Partial Thromboplastin Time 25.6 SEC (24.5-34.5); Prothrombin Time 11.6 sec (9.3-11.8)
--- NOTE | 2025-02-12 06:04 | DVH ---
EXAM: XY CHEST PORTABLE Indication: SOB Technique: Single frontal view of the chest was obtained Comparison: XY CHEST XRAY 1 VIEW on DOS: 01/13/25 FINDINGS: Lines and Tubes: Left central venous catheter tip projects over the cavoatrial junction. Lungs: Diffuse interstitial opacities. Pleura: Trace bilateral pleural effusion. No pneumothorax. Cardiomediastinal contours: Cardiomegaly. Bones: No acute osseous abnormality. IMPRESSION: Cardiomegaly with pulmonary edema.
[2025-02-12 06:21] LABS: Anion Gap 22 (5-15)
[2025-02-12 06:26] LABS: BUN/Creatinine Ratio 7.7 (10.0-20.0)
[2025-02-12 06:27] LABS: Alkaline Phosphatase 75 U/L (46-116); Calcium 10.7 mg/dL (8.7-10.4); Carbon Dioxide 18 mmol/L (20-31); Chloride 99 mmol/L (98-107); Glucose 96 mg/dL (74-106); Sodium 139 mmol/L (136-145)
[2025-02-12 06:28] LABS: Total Protein 7.4 g/dL (5.7-8.2)
[2025-02-12 06:29] LABS: Alanine Aminotransferase 17 U/L (7-40); Albumin 4.5 g/dL (3.2-4.8); Aspartate Aminotransferase 13 U/L (13-40); Bilirubin, Total 0.3 mg/dL (0.2-1.0); Blood Urea Nitrogen 111 mg/dL (9-23)
[2025-02-12] MEDS ORDERED: KETOROLAC TROMETH 30 MG/ML 1ML VIAL IV ONE (08:15)
[2025-02-12 08:29] VITALS: PULSE 82; RESP 18; O2SAT 94
[2025-02-12] MEDS: HYDROcodone-ACET 5/325MG TAB PO PRN (08:39)
--- NOTE | 2025-02-12 08:47 | DVHHP2 ---
History of Present Illness Reason for Visit: Headache History of Present Illness Enmanuel Morales is a 54-year-old male with past medical history of ESRD on HD ,,FRI, hypertension, CHF, and polysubstance abuse, who came in for a headache. Patient states he recently moved back here from [place]. He has not established care with a primary care provider, a hide spreader, or a center to receive hemodialysis. He states he has not had dialysis in a while. According to the chart this is the patient's 4th visit to this hospital since the end of December. He states he feels short of breath and that his legs are more swollen than normal. He also states he used fentanyl yesterday. He states he uses "fentanyl, methamphetamines, marijuana, and any drugs he can get". Patient is not able to remember when he last had dialysis. He states he has been a dialysis patient for over 10 years and that he does not make urine anymore. Cardiovascular: CHF, HTN Renal/: Chronic renal failure (HD-T,,FRI) Past Surgical History: Other (Aortic valve replacement with mechanical valve.) Smoke: No ALCOHOL: none Drugs: Marijuana, Other (Fentanyl, methamphetamine) Lives: with Family Domestic Violence: Neg Review of Systems Constitutional: Yes: Other (headache); No: Fever, Chills, Sweats, Weakness, Malaise Eyes: No: Pain, Vision change, Conjunctivae inflammation, Eyelid inflammation, Other, Redness ENT: No: Ear pain, Ear discharge, Nose pain, Nose discharge, Nose congestion, Mouth pain, Mouth swelling, Throat pain, Throat swelling, Other Respiratory: Shortness of breath, SOB with excertion; No: Cough, Dry, Wheezing, Hemoptysis, Pleuritic Pain, Sputum, Wheezing, Other Cardiovascular: No: Chest Pain, Palpitations, Orthopnea, Paroxysmal Noc. Dyspnea, Edema, Lt Headedness, Other Gastrointestinal: No: Nausea, Vomiting, Abdominal Pain, Diarrhea, Constipation, Melena, Hematochezia, Other Genitourinary: No Dysuria, No Frequency, No Incontinence, No Hematuria, No Retention, No Other Skin: No: Rash, Lesions, Jaundice, Bruising, Other Neurological: No: Weakness, Numbness, Incoordination, Change in speech, Confusion, Seizures, Other Allergies: Coded Allergies: NO KNOWN ALLERGIES (Unverified , 02/12/25) Medications Current Medications Medications Dose Ordered Sig/Harsh Route Start Time Stop Time Status Last Admin Dose Admin Sodium Chloride 10 ml Q8HR IV 02/12/25 14:00 UNV Acetaminophen/ Hydrocodone Bitart 1 tab Q4HP PRN PO 02/12/25 07:30 UNV Ondansetron HCl 4 mg Q4HP PRN IV 02/12/25 07:30 UNV Docusate Sodium 100 mg BIDPRN PRN PO 02/12/25 07:30 UNV Acetaminophen 650 mg Q6HP PRN PO 02/12/25 07:30 UNV Morphine Sulfate 2 mg Q4HPRN PRN IV 02/12/25 07:30 UNV Exam Vital Signs Vital Signs Date Time Temp Pulse Resp B/P (MAP) Pulse Ox O2 Delivery O2 Flow Rate FiO2 02/12/25 06:01 82 02/12/25 04:09 97.7 18 164/98 (120) 95 97.7 General Appearance: Alert, Oriented X3, moderate distress HEENT: Atraumatic, PERRLA Respiratory: Clear to auscultation, Normal air movement Cardiovascular: Regular rate, Normal S1, Normal S2 Abdominal: Normal bowel sounds, Soft, No tenderness, No hepatospenomegaly Extremities: No clubbing, No cyanosis, No edema, Normal pulses Skin: No rashes, No breakdown, No significant lesion Neuro: Normal gait, Normal speech, Strength at 5/5 X4 ext, Normal tone Psych/Mental Status: Mood NL, Other (anxious) Labs/Xrays Labs Test 02/12/25 06:00 02/12/25 04:37 Range/Units Sodium Level 139 136-145 mmol/L Potassium Level 5.0 3.5-5.1 mmol/L Chloride Level 99 98-107 mmol/L Carbon Dioxide Level 18 L 20-31 mmol/L Anion Gap 22 H 5-15 Blood Urea Nitrogen 111 *H 9-23 mg/dL Creatinine 14.42 *H 0.700-1.30 mg/dL Glomerular Filtration Rate Calc 4 >90 mL/min BUN/Creatinine Ratio 7.7 L 10.0-20.0 Serum Glucose 96 74-106 mg/dL Calcium Level 10.7 H 8.7-10.4 mg/dL Total Bilirubin 0.3 0.2-1.0 mg/dL Aspartate Amino Transferase (AST) 13 13-40 U/L Alanine Aminotransferase (ALT) 17 7-40 U/L Alkaline Phosphatase 75 46-116 U/L Total Protein 7.4 5.7-8.2 g/dL Albumin 4.5 3.2-4.8 g/dL White Blood Count 7.3 4.4-10.8 10^3/uL Red Blood Count 3.17 L 4.5-5.90 10^6/uL Hemoglobin 10.0 L 13.5-17.5 g/dL Hematocrit 29.3 L 41.0-53.0 % Mean Corpuscular Volume 92.4 80.0-100.0 fL Mean Corpuscular Hemoglobin 31.5 28.0-32.0 pg Mean Corpuscular Hemoglobin Concent 34.1 32.0-36.0 g/dL Red Cell Distribution Width 14.6 H 11.8-14.3 % Platelet Count 257 140-450 10^3/uL Mean Platelet Volume 7.1 6.9-10.8 fL Neutrophils (%) (Auto) 80.0 37.0-80.0 % Lymphocytes (%) (Auto) 7.9 L 10.0-50.0 % Monocytes (%) (Auto) 5.2 0.0-12.0 % Eosinophils (%) (Auto) 6.1 0.0-7.0 % Basophils (%) (Auto) 0.8 0.0-2.0 % Neutrophils # (Auto) 5.8 1.6-8.6 10 ^3/uL Lymphocytes # (Auto) 0.6 0.4-5.4 10 ^3/uL Monocytes # (Auto) 0.4 0-1.3 10 ^3/uL Eosinophils # (Auto) 0.4 0-0.8 10 ^3/uL Basophils # (Auto) 0.1 0-0.2 10 ^3/uL Nucleated Red Blood Cells 0.1 % Prothrombin Time 11.6 9.3-11.8 sec Prothrombin Time INR 1.11 0.9-1.15 Activated Partial Thromboplast Time 25.6 24.5-34.5 SEC B-Type Natriuretic Peptide 2042.35 0-100 pg/mL EXAM: XY CHEST PORTABLE FINDINGS: Lines and Tubes: Left central venous catheter tip projects over the cavoatrial junction. Lungs: Diffuse interstitial opacities. Pleura: Trace bilateral pleural effusion. No pneumothorax. Cardiomediastinal contours: Cardiomegaly. Bones: No acute osseous abnormality. IMPRESSION: Cardiomegaly with pulmonary edema. Assessment/Plan Assessment/Plan Assessment: Fluid overload, Cardiomegaly, Pulmonary edema, Missed hemodialysis, Hypertension, Polysubstance abuse, Plan: Admit to Tele, Nephrology consult, Psych consult, Social service consult, Home medications reconciled, Plan discussed with: Patient My Orders Orders - SAUL EPSTEIN Procedure Category Date Status Time Admit ADMIT 02/12/25 Transmitted 07:30 Code Status CODE 02/12/25 Transmitted 07:30 Renal DIET 02/12/25 Transmitted Standard(2gna,3gk,Lopho) Breakfast Sodium Chloride Lock PHA 02/12/25 Logged (Saline Lock Ns) 14:00 Hydrocodone-Acet PHA 02/12/25 Logged 5/325mg Tab ([place] 07:30 Ondansetron Hcl PHA 02/12/25 Logged (Zofran) 07:30 Docusate Sodium PHA 02/12/25 Logged Capsule ([place] 07:30 Complete Blood Count LAB 02/13/25 Verified 04:00 Comprehensive LAB 02/13/25 Verified Metabolic Panel 04:00 Condition: Critical LELIA 02/12/25 In Process 07:30 Acetaminophen Tablet PHA 02/12/25 Logged (Tylenol Tablet) 07:30 Morphine Sulfate PHA 02/12/25 Logged Injection 07:30 Ketorolac Injection PHA 02/12/25 Logged (Toradol Injection) 08:15 *[facility] CONS 02/12/25 Transmitted -[place] 08:16 Date of Service: February 12, 2025 Billing Provider: SAUL EPSTEIN Common Visit Codes: [id number] INP/OBS CARE (MOD) SAUL EPSTEIN February 12, 2025 08:47
[2025-02-12] MEDS ORDERED: hydrOXYzine 25 MG TAB or CAP PO PRN (09:30)
[2025-02-12] MEDS ORDERED: HYDR50TA47 PO (09:41)
[2025-02-12] MEDS ORDERED: OMEPRAZOLE 20MG/10ML ORAL SUSP PO SCH (10:00)
[2025-02-12 10:01] VITALS: BP 147/102; PULSE 81; RESP 22; TEMP 97.3
[2025-02-12] MEDS ORDERED: ALPR2TAB2 PO (10:37)
[2025-02-12] MEDS: NIFEdipine ER 30 MG TAB PO SCH (11:36)
[2025-02-12] MEDS: CALCIUM ACETATE 667 MG CAP PO SCH (11:36)
[2025-02-12] MEDS: SEVELAMER 800 MG TAB PO SCH (11:36)
[2025-02-12] MEDS: ACETAMINOPHEN 325 MG TAB PO PRN (11:56)
[2025-02-12 13:00] VITALS: BP 162/108; PULSE 82; RESP 19; TEMP 98.1; O2SAT 94
--- NOTE | 2025-02-12 13:19 | DVHINCON2 ---
Date of service: February 12, 2025 Referring Physician REGI Garrison Reason for Consultation ESRD on HD History of Present Illness 54 y/o male with hx of ESRD on HD //Fri, HTN, CHF, and polysubstance abuse. Admitted for fluid overload. Pt states last HD in [place] on Friday. On admission pt was found to have BUN 111, creat 14.42, and K+ 5.0, BNP 2042. Nephrology consult received for ESRD on HD. Past Medical History ESRD on HD //Fri, HTN, CHF, and polysubstance abuse Allergies: Coded Allergies: NO KNOWN ALLERGIES (Unverified , 02/12/25) Home Meds Active Scripts Sulfamethoxazole-Trimethoprim (Bactrim) 1 Tab Tab, 1 TAB PO BID for 7 Days, #14 MG Prov:DENNIS CAN DO 02/27/22 Clonidine Hydrochloride (Clonidine Hcl) 0.1 Mg Tab, 0.1 MG PO Q8HPRN PRN, #90 TAB Measure blood pressure prior to every dose. Take only if your systolic blood pressure or top number is above 160 mmHg Prov:DAX LAM MD 11/03/19 Nifedipine (Nifedipine Er) 30 Mg Tab, 60 MG PO DAILY, #30 TAB Prov:DAX LAM MD 11/03/19 Losartan Potassium (Losartan Potassium) 50 Mg Tab, 50 MG PO BID, #60 TAB Prov:DAX LAM MD 11/03/19 Calcium Acetate (PHOSLO CAPSULE) 667 Mg Cp, 1334 MG PO TIDWMEALS, #180 CAP Prov:DAX LAM MD 11/03/19 Carvedilol (COREG) 12.5 Mg Tab, 25 MG PO Q12HR, #60 TAB Prov:DAX LAM MD 11/03/19 Apixaban Base (ELIQUIS) 2.5 Mg Tab, 2.5 MG PO BID, #60 TAB Prov:DAX LAM MD 11/03/19 Omeprazole (PRILOSEC) 20 Mg Cap, 1 CAP PO DAILY, #90 CAP 1 Refill Prov:LUCIO PLUNKETT MD 09/01/17 Reported Medications Alprazolam (Xanax) 2 Mg Tab, 1 TAB PO BID, #60 TAB 02/12/25 Hydralazine Hcl (Hydralazine Hcl) 50 Mg Tab, 1 TAB PO TID 02/12/25 Hydrocodone-Acetaminophen (Hydrocodone Bitartrate/AC 5-325 mg) 1 Tab Tab, 1 TAB PO, TAB 01/13/25 Hydroxyzine Hcl (Hydroxyzine Hcl) 50 Mg Tab, 50 MG PO BID PRN for FOR ITCHING MDD 100 mg for 30 Days, MG 01/13/25 Apixaban Base (Eliquis Starter Pack) 5 Mg Tab, 5 MG PO BID, TAB 11/02/19 Magnesium Citrate (Citrate of Magnesia) 1 [place] Socorro, 1 SOCORRO PO PRN for FOR CONSTIPATION 08/31/17 Sevelamer Hydrochloride (Renagel) 800 Mg Tab, 800 MG PO AC, TAB 02/16/16 Discontinued Scripts Cephalexin (KEFLEX 500) 500 Mg Cap, 1 CAP PO BID for 7 Days, #14 CAP Prov:DENNIS CAN DO 02/27/22 Hydralazine HCl (Hydralazine HCl) 25 Mg Tab, 25 MG PO Q8HR, #90 TAB Prov:DAX LAM MD 11/04/19 Current Medications Current Medications Medications (Trade) Dose Ordered Sig/Harsh Route PRN Reason Start Time Stop Time Status Last Admin Sodium Chloride (Saline Lock Ns) 10 ml Q8HR IV 02/12/25 14:00 02/12/25 15:56 Acetaminophen/ Hydrocodone Bitart ([place] 5/325MG Tab) 1 tab Q4HP PRN PO MODERATE PAIN (4-6 PAIN SCALE) 02/12/25 07:30 02/12/25 08:39 Ondansetron HCl (Zofran) 4 mg Q4HP PRN IV NAUSEA / VOMITING 02/12/25 07:30 Docusate Sodium (Colace Capsule) 100 mg BIDPRN PRN PO FOR CONSTIPATION 02/12/25 07:30 Acetaminophen (Tylenol Tablet) 650 mg Q6HP PRN PO PAIN SCALE 1-3 OR TEMP>100.4 02/12/25 07:30 02/12/25 11:56 Morphine Sulfate 2 mg Q4HPRN PRN IV SEVERE PAIN (7-10 PAIN SCALE) 02/12/25 07:30 Calcium Acetate (Phoslo Capsule) 1,334 mg TIDWMEALS PO 02/12/25 12:00 02/12/25 11:36 Nifedipine (Procardia Xl (Time-Release)) 60 mg DAILY PO 02/12/25 10:00 02/12/25 11:36 Sevelamer HCl (Renagel) 800 mg AC PO 02/12/25 11:30 02/12/25 11:36 Hydroxyzine Pamoate (Vistaril Oral) 25 mg BID PRN PO FOR ITCHING 02/12/25 09:30 Omeprazole (PriLOSEC LIQUID) 20 mg DAILY PO 02/12/25 10:00 02/12/25 11:24 DC Apixaban (Eliquis) 5 mg BID PO 02/12/25 22:00 Hydralazine HCl (Apresoline Tablet) 50 mg TID PO 02/12/25 14:00 02/12/25 13:20 Omeprazole (Omeprazole/ Sodium Bicarbo 20-1680 Mg) 20 mg DAILY PO 02/13/25 10:00 Alprazolam (Xanax Tablet) 2 mg DAILY PO 02/12/25 12:15 02/12/25 13:20 Clonidine HCl (Catapres Tablet) 0.1 mg Q8HP PRN PO SBP>160 02/12/25 14:45 Family History: Family history: Cardiovascular disease Family history: Hypertension G8 FATHER GRANDFATHER-FATHER SIDE Review of Systems 10 systems reviewed and negative except as per HPI H&P Exam Vital Signs/I&O Vital Sign Date Time Temp Pulse Resp B/P (MAP) Pulse Ox O2 Delivery O2 Flow Rate FiO2 02/12/25 13:20 162/108 02/12/25 13:00 98.1 82 19 94 98.1 02/12/25 08:29 Room Air* 0 21 Physical Exam Gen: NAD HEENT: PERRLA, Mucous membranes moist Lungs: Bilateral air entry. No rales Heart: RRR, normal S1 and S2 Abd: normoactive bowel sounds, nontender Ext: nonpitting BLE edema Neuro; A&Ox3 Labs/Diagnostic Data Labs/Diagnostic Data Laboratory Tests Test 02/12/25 06:00 02/12/25 04:37 Range/Units Sodium Level 139 136-145 mmol/L Potassium Level 5.0 3.5-5.1 mmol/L Chloride Level 99 98-107 mmol/L Carbon Dioxide Level 18 L 20-31 mmol/L Anion Gap 22 H 5-15 Blood Urea Nitrogen 111 *H 9-23 mg/dL Creatinine 14.42 *H 0.700-1.30 mg/dL Glomerular Filtration Rate Calc 4 >90 mL/min BUN/Creatinine Ratio 7.7 L 10.0-20.0 Serum Glucose 96 74-106 mg/dL Calcium Level 10.7 H 8.7-10.4 mg/dL Total Bilirubin 0.3 0.2-1.0 mg/dL Aspartate Amino Transferase (AST) 13 13-40 U/L Alanine Aminotransferase (ALT) 17 7-40 U/L Alkaline Phosphatase 75 46-116 U/L Total Protein 7.4 5.7-8.2 g/dL Albumin 4.5 3.2-4.8 g/dL White Blood Count 7.3 4.4-10.8 10^3/uL Red Blood Count 3.17 L 4.5-5.90 10^6/uL Hemoglobin 10.0 L 13.5-17.5 g/dL Hematocrit 29.3 L 41.0-53.0 % Mean Corpuscular Volume 92.4 80.0-100.0 fL Mean Corpuscular Hemoglobin 31.5 28.0-32.0 pg Mean Corpuscular Hemoglobin Concent 34.1 32.0-36.0 g/dL Red Cell Distribution Width 14.6 H 11.8-14.3 % Platelet Count 257 140-450 10^3/uL Mean Platelet Volume 7.1 6.9-10.8 fL Neutrophils (%) (Auto) 80.0 37.0-80.0 % Lymphocytes (%) (Auto) 7.9 L 10.0-50.0 % Monocytes (%) (Auto) 5.2 0.0-12.0 % Eosinophils (%) (Auto) 6.1 0.0-7.0 % Basophils (%) (Auto) 0.8 0.0-2.0 % Neutrophils # (Auto) 5.8 1.6-8.6 10 ^3/uL Lymphocytes # (Auto) 0.6 0.4-5.4 10 ^3/uL Monocytes # (Auto) 0.4 0-1.3 10 ^3/uL Eosinophils # (Auto) 0.4 0-0.8 10 ^3/uL Basophils # (Auto) 0.1 0-0.2 10 ^3/uL Nucleated Red Blood Cells 0.1 % Prothrombin Time 11.6 9.3-11.8 sec Prothrombin Time INR 1.11 0.9-1.15 Activated Partial Thromboplast Time 25.6 24.5-34.5 SEC B-Type Natriuretic Peptide 2042.35 0-100 pg/mL Plan/Recommendation IMP ESRD on HD- missed several HD sessions HTN Hx of CHF Polysubstance abuse 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 George Weiss Plan discussed with: Patient, Other (Dr. Weiss) ROBERT BAILEY February 12, 2025 13:19
[2025-02-12] MEDS: ALPRAZolam 0.5 MG TAB PO SCH (13:20)
[2025-02-12] MEDS: hydrALAZINE HCL 25 MG TAB PO SCH (13:20)
[2025-02-12] MEDS: SODIUM CHLOR 0.9% PF (SALINE LOCK) 10ML VIAL/SYR IV SCH (15:56)
[2025-02-12] MEDS: SODIUM ZIRCONIUM CYCL 10 GM PAK PO ONE (16:01)
[2025-02-12 17:00] VITALS: BP 108/77; PULSE 77; RESP 18; TEMP 97.3; O2SAT 93
[2025-02-12 20:00] VITALS: PULSE 82; PULSE 86; RESP 20; O2SAT 98
[2025-02-12 21:00] VITALS: BP 183/95; PULSE 82; RESP 20; TEMP 97.5; O2SAT 98
[2025-02-12] MEDS: APIXABAN 5 MG TAB PO SCH (22:01)
[2025-02-12] MEDS: MORPHINE SULFATE INJ 2 MG/ml SYRG IV PRN (22:03)
[2025-02-12] MEDS: ONDANSETRON HCL 4 MG/2 ML VIAL IV PRN (22:24)
[2025-02-13] VITALS (18 sets, daily range): BP systolic 143–196; BP diastolic 100–115; PULSE 71–89; RESP 17–20; TEMP 97.3–97.7; O2SAT 90–100
[2025-02-13] MEDS: cloNIDine HCL 0.1 MG TAB PO PRN (00:46)
[2025-02-13] MEDS: hydrALAZINE HCL 20 MG/ML VL IV ONE (03:29)
[2025-02-13 07:06] LABS: Basophils # (auto) 0.1 10 ^3/uL (0-0.2); Eosinophils # (auto) 0.2 10 ^3/uL (0-0.8); Eosinophils % (auto) 3.5 % (0.0-7.0); Hematocrit 31.2 % (41.0-53.0); Hemoglobin 10.1 g/dL (13.5-17.5); Lymphocytes # (auto) 0.4 10 ^3/uL (0.4-5.4); Lymphocytes % (auto) 6.3 % (10.0-50.0); Mean Corpuscular Hemoglobin 31.1 pg (28.0-32.0); Mean Corpuscular Hgb Conc. 32.3 g/dL (32.0-36.0); Mean Corpuscular Volume 96.4 fL (80.0-100.0); Monocytes # (auto) 0.4 10 ^3/uL (0-1.3); Monocytes % (auto) 5.6 % (0.0-12.0); Neutrophils # (auto) 5.8 10 ^3/uL (1.6-8.6); Neutrophils % (auto) 83.6 % (37.0-80.0); Nucleated Red Blood Cells % 0.1 %; Platelet Count (auto) 284 10^3/uL (140-450); Red Blood Cells 3.24 10^6/uL (4.5-5.90); Red Cell Distribution Width 15.1 % (11.8-14.3)
[2025-02-13 07:21] LABS: Alanine Aminotransferase 11 U/L (7-40); Alkaline Phosphatase 74 U/L (46-116); Anion Gap 22 (5-15); BUN/Creatinine Ratio 7.6 (10.0-20.0); Chloride 98 mmol/L (98-107); Glucose 78 mg/dL (74-106); Sodium 137 mmol/L (136-145); Total Protein 6.9 g/dL (5.7-8.2)
[2025-02-13 07:22] LABS: Albumin 4.1 g/dL (3.2-4.8)
[2025-02-13 07:41] LABS: Aspartate Aminotransferase 9 U/L (13-40); Carbon Dioxide 17 mmol/L (20-31)
[2025-02-13 07:42] LABS: Bilirubin, Total 0.3 mg/dL (0.2-1.0); Calcium 10.4 mg/dL (8.7-10.4)
[2025-02-13 07:43] LABS: Blood Urea Nitrogen 118 mg/dL (9-23); Potassium 6.3 mmol/L (3.5-5.1)
[2025-02-13] MEDS: OMEPRAZOLE-SOD BICARB 20 MG POWDER PO SCH (10:00)
--- NOTE | 2025-02-13 13:22 | DVHPN2 ---
Progress Note Date Seen: February 13, 2025 Medical Necessity Reason Pt with a Central, PICC or Fol: Yes Subjective Review of Systems Pt had HD today, tolerated well. Pt on bipap FiO2 60% Patient reports: No new complaints, Feels better Objective vital signs Vital Sign Date Time Temp Pulse Resp B/P (MAP) Pulse Ox O2 Delivery O2 Flow Rate FiO2 02/13/25 13:10 181/108 02/13/25 08:54 97.3 79 17 97 97.3 02/13/25 08:32 Facial BiPAP Mask 60 02/13/25 08:00 9 medications Current Medications Medications Dose Ordered Sig/Harsh Route Start Time Stop Time Status Last Admin Dose Admin Sodium Chloride 10 ml Q8HR IV 02/12/25 14:00 02/13/25 13:11 10 ML Acetaminophen/ Hydrocodone Bitart 1 tab Q4HP PRN PO 02/12/25 07:30 02/13/25 01:24 1 TAB Ondansetron HCl 4 mg Q4HP PRN IV 02/12/25 07:30 02/12/25 22:24 4 MG Docusate Sodium 100 mg BIDPRN PRN PO 02/12/25 07:30 Acetaminophen 650 mg Q6HP PRN PO 02/12/25 07:30 02/12/25 11:56 650 MG Morphine Sulfate 2 mg Q4HPRN PRN IV 02/12/25 07:30 02/12/25 22:03 2 MG Calcium Acetate 1,334 mg TIDWMEALS PO 02/12/25 12:00 02/12/25 17:57 1,334 MG Nifedipine 60 mg DAILY PO 02/12/25 10:00 02/12/25 11:36 60 MG Sevelamer HCl 800 mg AC PO 02/12/25 11:30 02/13/25 06:37 800 MG Hydroxyzine Pamoate 25 mg BID PRN PO 02/12/25 09:30 Apixaban 5 mg BID PO 02/12/25 22:00 02/13/25 10:45 5 MG Hydralazine HCl 50 mg TID PO 02/12/25 14:00 02/13/25 13:10 50 MG Omeprazole 20 mg DAILY PO 02/13/25 10:00 Alprazolam 2 mg DAILY PO 02/12/25 12:15 02/12/25 13:20 2 MG Clonidine HCl 0.1 mg Q8HP PRN PO 02/12/25 14:45 02/13/25 12:08 0.1 MG Examination Gen: NAD HEENT: PERRLA, Mucous membranes moist Lungs: Bilateral air entry. No rales Heart: RRR, normal S1 and S2 Abd: normoactive bowel sounds, nontender Ext: nonpitting BLE edema Neuro: A&Ox2 laboratory and microbiology Laboratory Tests 02/13/25 05:08 Test 02/13/25 05:08 Range/Units Serum Glucose 78 74-106 mg/dL Microbiology Date/Time Source Procedure Growth Status 02/12/25 11:47 Hand Gram Stain - Final Resulted 02/12/25 11:47 Hand Wound Culture - Preliminary Resulted Labs and/or images reviewed: Labs reviewed by me Problem List/Assessment/Plan Problem List/Assessment/Plan IMP ESRD on HD- had HD today HTN Hx of CHF Polysubstance abuse REC Next HD tentatively 02/14 Serial chemistry panels Fluid restriction 1.5L/day Strict I&Os Will need to schedule chairtime for outpt HD, as pt recently moved from [place] Will continue to follow Case discussed with Dr. George Weiss Plan discussed with: Patient, Other Dietary Evaluation Review Recommendations by RD: Protein Supplementation Comments: 1) Initiate Nepro bid. Encourage optimal PO intake 2) Collect renal panel including phosphorus lab 3) Follow-up with nephrology and cardiology 4) Follow-up with social professionals regarding polysubstance abuse 5) Continue to monitor I&O, labs, and skin integrity Expected Outcomes/Goals: 1) appetite and labs to improve 2) wound to improve 3) f/u in 3-5 days ROBERT BAILEY February 13, 2025 13:21
--- NOTE | 2025-02-13 13:27 | DVHPN2 ---
Subjective The patient is seen and examined at bedside. Complain of shortness a breath. Reviewed: Care Plan, H&P, Labs, Medications, Previous Orders, Radiology Changes from previous H/P or p: No Changes Eyes: No Pain, No Vision change, No Conjunctivae inflammation, No Eyelid inflammation, No Other, No Redness ENT: No Ear pain, No Ear discharge, No Nose pain, No Nose discharge, No Nose congestion, No Mouth pain, No Mouth swelling, No Throat pain, No Throat swelling, No Other Cardiovascular: No Chest Pain, No Palpitations, No Orthopnea, No Paroxysmal Noc. Dyspnea, No Edema, No Lt Headedness, No Other Respiratory: No Cough, No Dry; Shortness of breath, SOB with excertion; No Wheezing, No Hemoptysis, No Pleuritic Pain, No Sputum, No Other Gastrointestinal: No Nausea, No Vomiting, No Abdominal Pain, No Diarrhea, No Constipation, No Melena, No Hematochezia, No Other Genitourinary: No Dysuria, No Frequency, No Incontinence, No Hematuria, No Retention, No Other Skin: No Rash, No Lesions, No Jaundice, No Bruising, No Other Objective Vitals Vital Signs Date Time Temp Pulse Resp B/P (MAP) Pulse Ox O2 Delivery O2 Flow Rate FiO2 02/13/25 13:10 181/108 02/13/25 08:54 97.3 79 17 97 97.3 02/13/25 08:32 Facial BiPAP Mask 60 02/13/25 08:00 9 General Appearance: Alert, Oriented X3, Cooperative, No acute distress HEENT: Atraumatic, PERRLA, EOMI, Mucous membr. moist/pink Neck: Supple Lungs: Clear to auscultation, Normal air movement Cardiovascular: Regular rate, Normal S1, Normal S2, No murmurs, Gallops, Rubs Abdomen: Normal bowel sounds, Soft, No tenderness Neuro: Cranial nerves 3-12 NL Psych/Mental Status: Mental status NL Medications Current Medications Medications Dose Ordered Sig/Harsh Route Start Time Stop Time Status Last Admin Dose Admin Sodium Chloride 10 ml Q8HR IV 02/12/25 14:00 02/13/25 13:11 10 ML Acetaminophen/ Hydrocodone Bitart 1 tab Q4HP PRN PO 02/12/25 07:30 02/13/25 01:24 1 TAB Ondansetron HCl 4 mg Q4HP PRN IV 02/12/25 07:30 02/12/25 22:24 4 MG Docusate Sodium 100 mg BIDPRN PRN PO 02/12/25 07:30 Acetaminophen 650 mg Q6HP PRN PO 02/12/25 07:30 02/12/25 11:56 650 MG Morphine Sulfate 2 mg Q4HPRN PRN IV 02/12/25 07:30 02/12/25 22:03 2 MG Calcium Acetate 1,334 mg TIDWMEALS PO 02/12/25 12:00 02/12/25 17:57 1,334 MG Nifedipine 60 mg DAILY PO 02/12/25 10:00 02/12/25 11:36 60 MG Sevelamer HCl 800 mg AC PO 02/12/25 11:30 02/13/25 06:37 800 MG Hydroxyzine Pamoate 25 mg BID PRN PO 02/12/25 09:30 Apixaban 5 mg BID PO 02/12/25 22:00 02/13/25 10:45 5 MG Hydralazine HCl 50 mg TID PO 02/12/25 14:00 02/13/25 13:10 50 MG Omeprazole 20 mg DAILY PO 02/13/25 10:00 Alprazolam 2 mg DAILY PO 02/12/25 12:15 02/12/25 13:20 2 MG Clonidine HCl 0.1 mg Q8HP PRN PO 02/12/25 14:45 02/13/25 12:08 0.1 MG Laboratory Results Laboratory Tests 02/13/25 05:08 Chemistry Test 02/13/25 05:08 Albumin 4.1 g/dL (3.2-4.8) Calcium Level 10.4 mg/dL (8.7-10.4) Total Protein 6.9 g/dL (5.7-8.2) LFT Test 02/13/25 05:08 Alanine Aminotransferase (ALT) 11 U/L (7-40) Alkaline Phosphatase 74 U/L (46-116) Aspartate Amino Transferase (AST) 9 U/L (13-40) L Total Bilirubin 0.3 mg/dL (0.2-1.0) Microbiology Microbiology Date/Time Source Procedure Growth Status 02/12/25 11:47 Hand Gram Stain - Final Resulted 02/12/25 11:47 Hand Wound Culture - Preliminary Resulted Labs and/or images reviewed: Labs reviewed by me Assessment/Plan Assessment/Plan End-stage renal disease on hemodialysis, the patient missed dialysis Medical noncompliant Fluid overload, Cardiomegaly, Pulmonary edema, Hypertension, Polysubstance abuse, Plan: Continuing current management. Continuing with hemodialysis. Advised to stop using drugs more than 15 minutes Continuing hypertensive medication This medical document was created using an electronic medical record system with [employer] direct computerized dictation system. Although this document has been carefully reviewed, there may still be some phonetic and typographical errors. These areas are purely typographical due to imperfections of the software programs, and do not reflect any compromise in the patient's medical care. Plan discussed with: Patient My Orders Orders - MARGUERITE TA MD Procedure Category Date Status Time Clonidine Hcl Tablet PHA 02/12/25 In Process (Catapres Tablet) 14:45 Basic Metabolic Panel LAB 02/13/25 Logged 13:15 Date of Service: February 13, 2025 Billing Provider: MARGUERITE TA MD Common Visit Codes: [id number] INP/OBS CARE(HIGH) MARGUERITE TA MD February 13, 2025 13:27
[2025-02-13 14:01] LABS: Potassium 4.4 mmol/L (3.5-5.1); Sodium 139 mmol/L (136-145)
[2025-02-13 14:02] LABS: Anion Gap 17 (5-15); Carbon Dioxide 24 mmol/L (20-31)
[2025-02-13 14:07] LABS: BUN/Creatinine Ratio 6.7 (10.0-20.0)
[2025-02-13 14:12] LABS: Blood Urea Nitrogen 78 mg/dL (9-23); Calcium 10.5 mg/dL (8.7-10.4); Chloride 98 mmol/L (98-107); Glucose 112 mg/dL (74-106)
--- NOTE | 2025-02-13 18:41 | DVHINCON2 ---
Date of Service if different f: February 13, 2025 Time of Service: 18:40 Consultation ([facility]) Consulting Physician: LEILA GARCIA MD Labs Laboratory Tests Test 02/12/25 04:37 02/13/25 05:08 02/13/25 13:39 Prothrombin Time 11.6 sec (9.3-11.8) Prothromb Time International Ratio 1.11 (0.9-1.15) Activated Partial Thromboplast Time 25.6 SEC (24.5-34.5) B-Type Natriuretic Peptide 2042.35 pg/mL (0-100) White Blood Count 7.0 10^3/uL (4.4-10.8) Red Blood Count 3.24 10^6/uL (4.5-5.90) Hemoglobin 10.1 g/dL (13.5-17.5) Hematocrit 31.2 % (41.0-53.0) Mean Corpuscular Volume 96.4 fL (80.0-100.0) Mean Corpuscular Hemoglobin 31.1 pg (28.0-32.0) Mean Corpuscular Hemoglobin Concent 32.3 g/dL (32.0-36.0) Red Cell Distribution Width 15.1 % (11.8-14.3) Platelet Count 284 10^3/uL (140-450) Mean Platelet Volume 6.7 fL (6.9-10.8) Neutrophils (%) (Auto) 83.6 % (37.0-80.0) Lymphocytes (%) (Auto) 6.3 % (10.0-50.0) Monocytes (%) (Auto) 5.6 % (0.0-12.0) Eosinophils (%) (Auto) 3.5 % (0.0-7.0) Basophils (%) (Auto) 1.0 % (0.0-2.0) Neutrophils # (Auto) 5.8 10 ^3/uL (1.6-8.6) Lymphocytes # (Auto) 0.4 10 ^3/uL (0.4-5.4) Monocytes # (Auto) 0.4 10 ^3/uL (0-1.3) Eosinophils # (Auto) 0.2 10 ^3/uL (0-0.8) Basophils # (Auto) 0.1 10 ^3/uL (0-0.2) Nucleated Red Blood Cells 0.1 % Total Bilirubin 0.3 mg/dL (0.2-1.0) Aspartate Amino Transf (AST/SGOT) 9 U/L (13-40) Alanine Aminotransferase (ALT/SGPT) 11 U/L (7-40) Alkaline Phosphatase 74 U/L (46-116) Total Protein 6.9 g/dL (5.7-8.2) Albumin 4.1 g/dL (3.2-4.8) Sodium Level 139 mmol/L (136-145) Potassium Level 4.4 mmol/L (3.5-5.1) Chloride Level 98 mmol/L (98-107) Carbon Dioxide Level 24 mmol/L (20-31) Anion Gap 17 (5-15) Blood Urea Nitrogen 78 mg/dL (9-23) Creatinine 11.56 mg/dL (0.700-1.30) Glomerular Filtration Rate Calc 5 mL/min (>90) BUN/Creatinine Ratio 6.7 (10.0-20.0) Serum Glucose 112 mg/dL (74-106) Calcium Level 10.5 mg/dL (8.7-10.4) Microbiology Date/Time Source Procedure Growth Status 02/12/25 11:47 Hand Gram Stain - Final Resulted 02/12/25 11:47 Hand Wound Culture - Preliminary Resulted Vitals Vital Signs Date Time Temp Pulse Resp B/P (MAP) Pulse Ox O2 Delivery O2 Flow Rate FiO2 02/13/25 18:04 80 16 187/116 02/13/25 16:46 97.6 98 97.6 02/13/25 11:48 Facial BiPAP Mask 60 02/13/25 08:00 9 Current medications Current Medications Medications Dose Ordered Sig/Harsh Route Start Time Stop Time Status Last Admin Dose Admin Sodium Chloride 10 ml Q8HR IV 02/12/25 14:00 02/13/25 13:11 10 ML Acetaminophen/ Hydrocodone Bitart 1 tab Q4HP PRN PO 02/12/25 07:30 02/13/25 01:24 1 TAB Ondansetron HCl 4 mg Q4HP PRN IV 02/12/25 07:30 02/12/25 22:24 4 MG Docusate Sodium 100 mg BIDPRN PRN PO 02/12/25 07:30 Acetaminophen 650 mg Q6HP PRN PO 02/12/25 07:30 02/13/25 16:22 650 MG Morphine Sulfate 2 mg Q4HPRN PRN IV 02/12/25 07:30 02/13/25 18:04 2 MG Calcium Acetate 1,334 mg TIDWMEALS PO 02/12/25 12:00 02/13/25 18:03 1,334 MG Nifedipine 60 mg DAILY PO 02/12/25 10:00 02/12/25 11:36 60 MG Sevelamer HCl 800 mg AC PO 02/12/25 11:30 02/13/25 18:04 800 MG Hydroxyzine Pamoate 25 mg BID PRN PO 02/12/25 09:30 Apixaban 5 mg BID PO 02/12/25 22:00 02/13/25 10:45 5 MG Hydralazine HCl 50 mg TID PO 02/12/25 14:00 02/13/25 13:10 50 MG Omeprazole 20 mg DAILY PO 02/13/25 10:00 Alprazolam 2 mg DAILY PO 02/12/25 12:15 02/12/25 13:20 2 MG Clonidine HCl 0.1 mg Q8HP PRN PO 02/12/25 14:45 02/13/25 12:08 0.1 MG History of Present Illness PSYCHIATRY CONSULTATION Per covering RN, pt reported SI yesterday, none today. Pt still medically unstable. RN unsure if MD wants psych consult given no order placed. RN will check in with primary team and page for psych consult if MD feels is indicated. Asked to place order at that time as well. Pt will be seen if/when requested by primary team. LEXIS BUTLER MD February 13, 2025 18:41
[2025-02-13] MEDS: TEMAZEPAM 15 MG CAP PO ONE (23:00)
[2025-02-14] VITALS (13 sets, daily range): BP systolic 162–207; BP diastolic 93–123; PULSE 61–90; RESP 16–19; TEMP 95.9–98.7; O2SAT 92–98
[2025-02-14] MEDS: hydrALAZINE HCL 20 MG/ML VL IV PRN (00:58)
[2025-02-14 07:24] LABS: Basophils # (auto) 0.1 10 ^3/uL (0-0.2); Basophils % (auto) 1.1 % (0.0-2.0); Eosinophils # (auto) 0.3 10 ^3/uL (0-0.8); Eosinophils % (auto) 3.8 % (0.0-7.0); Hemoglobin 10.1 g/dL (13.5-17.5); Lymphocytes # (auto) 0.5 10 ^3/uL (0.4-5.4); Lymphocytes % (auto) 7.4 % (10.0-50.0); Mean Corpuscular Hemoglobin 31.1 pg (28.0-32.0); Mean Corpuscular Hgb Conc. 33.7 g/dL (32.0-36.0); Mean Corpuscular Volume 92.4 fL (80.0-100.0); Monocytes # (auto) 0.3 10 ^3/uL (0-1.3); Monocytes % (auto) 5.1 % (0.0-12.0); Neutrophils # (auto) 5.5 10 ^3/uL (1.6-8.6); Neutrophils % (auto) 82.6 % (37.0-80.0); Nucleated Red Blood Cells % 0.1 %; Platelet Count (auto) 274 10^3/uL (140-450); Red Blood Cells 3.24 10^6/uL (4.5-5.90); Red Cell Distribution Width 14.4 % (11.8-14.3); White Blood Cell 6.7 10^3/uL (4.4-10.8)
[2025-02-14 07:33] LABS: Anion Gap 17 (5-15); Carbon Dioxide 24 mmol/L (20-31); Sodium 138 mmol/L (136-145)
[2025-02-14 07:39] LABS: BUN/Creatinine Ratio 6.8 (10.0-20.0); Glucose 88 mg/dL (74-106)
[2025-02-14 07:43] LABS: Calcium 10.7 mg/dL (8.7-10.4); Chloride 97 mmol/L (98-107); Potassium 5.3 mmol/L (3.5-5.1)
[2025-02-14 07:45] LABS: Blood Urea Nitrogen 90 mg/dL (9-23)
--- NOTE | 2025-02-14 14:23 | DVHPN2 ---
Subjective The patient is seen and examined at bedside. Complain of shortness for breath. Reviewed: Care Plan, H&P, Labs, Medications, Previous Orders, Radiology Changes from previous H/P or p: No Changes Eyes: No Pain, No Vision change, No Conjunctivae inflammation, No Eyelid inflammation, No Other, No Redness ENT: No Ear pain, No Ear discharge, No Nose pain, No Nose discharge, No Nose congestion, No Mouth pain, No Mouth swelling, No Throat pain, No Throat swelling, No Other Cardiovascular: No Chest Pain, No Palpitations, No Orthopnea, No Paroxysmal Noc. Dyspnea, No Edema, No Lt Headedness, No Other Respiratory: No Cough, No Dry; Shortness of breath, SOB with excertion; No Wheezing, No Hemoptysis, No Pleuritic Pain, No Sputum, No Other Gastrointestinal: No Nausea, No Vomiting, No Abdominal Pain, No Diarrhea, No Constipation, No Melena, No Hematochezia, No Other Genitourinary: No Dysuria, No Frequency, No Incontinence, No Hematuria, No Retention, No Other Skin: No Rash, No Lesions, No Jaundice, No Bruising, No Other Objective Vitals Vital Signs Date Time Temp Pulse Resp B/P (MAP) Pulse Ox O2 Delivery O2 Flow Rate FiO2 02/14/25 12:00 83 97 Facial BiPAP Mask 40 02/14/25 10:10 18 130/69 02/14/25 09:00 98.7 98.7 02/14/25 08:00 5.0 Intake/Output Intake and Output 02/14/25 07:00 Intake Total 50 ml Balance 50 ml Intake Oral 50 ml General Appearance: Alert, Cooperative, No acute distress HEENT: Atraumatic, PERRLA, EOMI, Mucous membr. moist/pink Neck: Supple Lungs: Clear to auscultation, Normal air movement Cardiovascular: Regular rate, Normal S1, Normal S2, No murmurs, Gallops, Rubs Abdomen: Normal bowel sounds, Soft, No tenderness Extremities: Normal pulses Neuro: Cranial nerves 3-12 NL Psych/Mental Status: Mental status NL Medications Current Medications Medications Dose Ordered Sig/Harsh Route Start Time Stop Time Status Last Admin Dose Admin Sodium Chloride 10 ml Q8HR IV 02/12/25 14:00 02/14/25 04:56 10 ML Acetaminophen/ Hydrocodone Bitart 1 tab Q4HP PRN PO 02/12/25 07:30 02/14/25 08:40 1 TAB Ondansetron HCl 4 mg Q4HP PRN IV 02/12/25 07:30 02/12/25 22:24 4 MG Docusate Sodium 100 mg BIDPRN PRN PO 02/12/25 07:30 Acetaminophen 650 mg Q6HP PRN PO 02/12/25 07:30 02/13/25 16:22 650 MG Morphine Sulfate 2 mg Q4HPRN PRN IV 02/12/25 07:30 02/14/25 09:40 2 MG Calcium Acetate 1,334 mg TIDWMEALS PO 02/12/25 12:00 02/14/25 11:42 1,334 MG Nifedipine 60 mg DAILY PO 02/12/25 10:00 02/14/25 08:39 60 MG Sevelamer HCl 800 mg AC PO 02/12/25 11:30 02/14/25 11:42 800 MG Hydroxyzine Pamoate 25 mg BID PRN PO 02/12/25 09:30 Apixaban 5 mg BID PO 02/12/25 22:00 02/14/25 08:40 5 MG Hydralazine HCl 50 mg TID PO 02/12/25 14:00 02/14/25 04:55 50 MG Omeprazole 20 mg DAILY PO 02/13/25 10:00 02/14/25 10:17 20 MG Alprazolam 2 mg DAILY PO 02/12/25 12:15 02/14/25 08:40 2 MG Clonidine HCl 0.1 mg Q8HP PRN PO 02/12/25 14:45 02/13/25 12:08 0.1 MG Hydralazine HCl 10 mg Q6HP PRN IV 02/13/25 19:30 02/14/25 08:41 10 MG Laboratory Results Laboratory Tests 02/14/25 06:25 Chemistry Test 02/14/25 06:25 Calcium Level 10.7 mg/dL (8.7-10.4) H Microbiology Microbiology Date/Time Source Procedure Growth Status 02/12/25 11:47 Hand Gram Stain - Final Resulted 02/12/25 11:47 Hand Wound Culture - Preliminary Resulted Labs and/or images reviewed: Labs reviewed by me Assessment/Plan Assessment/Plan End-stage renal disease on hemodialysis, the patient missed dialysis Medical noncompliant Fluid overload, Cardiomegaly, Pulmonary edema, Hypertension, Polysubstance abuse, Plan: Continuing current management. Continuing with hemodialysis. Advised to stop using drugs more than 15 minutes Continuing hypertensive medication Appreciate nephrology input This medical document was created using an electronic medical record system with [email or web address] direct computerized dictation system. Although this document has been carefully reviewed, there may still be some phonetic and typographical errors. These areas are purely typographical due to imperfections of the software programs, and do not reflect any compromise in the patient's medical care. Plan discussed with: Patient Date of Service: February 14, 2025 Billing Provider: MARGUERITE TA MD Common Visit Codes: [id number] INP/OBS CARE(HIGH) MARGUERITE TA MD February 14, 2025 14:23
--- NOTE | 2025-02-14 15:06 | DVHPN2 ---
Progress Note - Dictate Date Seen: February 14, 2025 Medical Necessity Reason Pt with a Central, PICC or Fol: Yes Subjective Awake, slightly flattened affect. vital signs Vital Sign Date Time Temp Pulse Resp B/P (MAP) Pulse Ox O2 Delivery O2 Flow Rate FiO2 02/14/25 14:57 144/79 02/14/25 13:00 98.3 83 16 97 98.3 02/14/25 12:00 Facial BiPAP Mask 40 02/14/25 08:00 5.0 Total Intake and Output 02/13/25 02/13/25 02/14/25 15:00 23:00 07:00 Intake Total 50 ml Balance 50 ml medications Current Medications Medications Dose Ordered Sig/Harsh Route Start Time Stop Time Status Last Admin Dose Admin Sodium Chloride 10 ml Q8HR IV 02/12/25 14:00 02/14/25 14:00 10 ML Acetaminophen/ Hydrocodone Bitart 1 tab Q4HP PRN PO 02/12/25 07:30 02/14/25 08:40 1 TAB Ondansetron HCl 4 mg Q4HP PRN IV 02/12/25 07:30 02/12/25 22:24 4 MG Docusate Sodium 100 mg BIDPRN PRN PO 02/12/25 07:30 Acetaminophen 650 mg Q6HP PRN PO 02/12/25 07:30 02/13/25 16:22 650 MG Morphine Sulfate 2 mg Q4HPRN PRN IV 02/12/25 07:30 02/14/25 09:40 2 MG Calcium Acetate 1,334 mg TIDWMEALS PO 02/12/25 12:00 02/14/25 11:42 1,334 MG Nifedipine 60 mg DAILY PO 02/12/25 10:00 02/14/25 08:39 60 MG Sevelamer HCl 800 mg AC PO 02/12/25 11:30 02/14/25 11:42 800 MG Hydroxyzine Pamoate 25 mg BID PRN PO 02/12/25 09:30 Apixaban 5 mg BID PO 02/12/25 22:00 02/14/25 08:40 5 MG Hydralazine HCl 50 mg TID PO 02/12/25 14:00 02/14/25 14:57 50 MG Omeprazole 20 mg DAILY PO 02/13/25 10:00 02/14/25 10:17 20 MG Alprazolam 2 mg DAILY PO 02/12/25 12:15 02/14/25 08:40 2 MG Clonidine HCl 0.1 mg Q8HP PRN PO 02/12/25 14:45 02/13/25 12:08 0.1 MG Hydralazine HCl 10 mg Q6HP PRN IV 02/13/25 19:30 02/14/25 08:41 10 MG objective Gen: nad heent: nc/at, mmm lungs: cta anteriorly cvs: no rub abd: soft, bowel sounds audible ext: no edema skin: no rash laboratory and microbiology Laboratory Tests 02/14/25 06:25 Test 02/14/25 06:25 Range/Units Serum Glucose 88 74-106 mg/dL Assessment/Plan IMP ESRD on HD- had HD today HTN Hx of CHF Polysubstance abuse REC Dialysis February 15 We will reach out to office regarding outpatient dialysis chair time. Dietary Evaluation Review Recommendations by RD: Protein Supplementation Comments: 1) Initiate Nepro bid. Encourage optimal PO intake 2) Collect renal panel including phosphorus lab 3) Follow-up with nephrology and cardiology 4) Follow-up with social work program coordinator regarding polysubstance abuse 5) Continue to monitor I&O, labs, and skin integrity Expected Outcomes/Goals: 1) appetite and labs to improve 2) wound to improve 3) f/u in 3-5 days Plan discussed with: LEILA Blanco MD February 14, 2025 15:06
[2025-02-15] VITALS (9 sets, daily range): BP systolic 149–193; BP diastolic 73–111; PULSE 62–92; RESP 16–18; TEMP 97.6–98.6; O2SAT 92–95
[2025-02-15 10:56] LABS: Glucose 96 mg/dL (74-106)
[2025-02-15 11:00] LABS: Blood Urea Nitrogen 102 mg/dL (9-23); Calcium 10.8 mg/dL (8.7-10.4); Chloride 95 mmol/L (98-107); Sodium 135 mmol/L (136-145)
[2025-02-15 11:24] LABS: Anion Gap 18 (5-15); Carbon Dioxide 22 mmol/L (20-31)
--- NOTE | 2025-02-15 12:03 | DVHPN2 ---
Subjective The patient is seen and examined at bedside. Complain of shortness for breath. Reviewed: Care Plan, H&P, Labs, Medications, Previous Orders, Radiology Changes from previous H/P or p: No Changes Eyes: No Pain, No Vision change, No Conjunctivae inflammation, No Eyelid inflammation, No Other, No Redness ENT: No Ear pain, No Ear discharge, No Nose pain, No Nose discharge, No Nose congestion, No Mouth pain, No Mouth swelling, No Throat pain, No Throat swelling, No Other Cardiovascular: No Chest Pain, No Palpitations, No Orthopnea, No Paroxysmal Noc. Dyspnea, No Edema, No Lt Headedness, No Other Respiratory: No Cough, No Dry; Shortness of breath, SOB with excertion; No Wheezing, No Hemoptysis, No Pleuritic Pain, No Sputum, No Other Gastrointestinal: No Nausea, No Vomiting, No Abdominal Pain, No Diarrhea, No Constipation, No Melena, No Hematochezia, No Other Genitourinary: No Dysuria, No Frequency, No Incontinence, No Hematuria, No Retention, No Other Skin: No Rash, No Lesions, No Jaundice, No Bruising, No Other Objective Vitals Vital Signs Date Time Temp Pulse Resp B/P (MAP) Pulse Ox O2 Delivery O2 Flow Rate FiO2 02/15/25 10:12 179/105 02/15/25 08:59 97.6 77 18 92 97.6 02/15/25 07:25 Nasal Cannula 5.0 02/15/25 07:25 40 General Appearance: Alert, Cooperative, No acute distress HEENT: Atraumatic, PERRLA, EOMI, Mucous membr. moist/pink Neck: Supple Lungs: Clear to auscultation, Normal air movement Cardiovascular: Regular rate, Normal S1, Normal S2, No murmurs, Gallops, Rubs Abdomen: Normal bowel sounds, Soft, No tenderness Extremities: Normal pulses Neuro: Cranial nerves 3-12 NL Psych/Mental Status: Mental status NL Medications Current Medications Medications Dose Ordered Sig/Harsh Route Start Time Stop Time Status Last Admin Dose Admin Sodium Chloride 10 ml Q8HR IV 02/12/25 14:00 02/15/25 05:27 10 ML Acetaminophen/ Hydrocodone Bitart 1 tab Q4HP PRN PO 02/12/25 07:30 02/14/25 23:47 1 TAB Ondansetron HCl 4 mg Q4HP PRN IV 02/12/25 07:30 02/12/25 22:24 4 MG Docusate Sodium 100 mg BIDPRN PRN PO 02/12/25 07:30 Acetaminophen 650 mg Q6HP PRN PO 02/12/25 07:30 02/13/25 16:22 650 MG Morphine Sulfate 2 mg Q4HPRN PRN IV 02/12/25 07:30 02/15/25 06:07 2 MG Calcium Acetate 1,334 mg TIDWMEALS PO 02/12/25 12:00 02/15/25 11:23 1,334 MG Nifedipine 60 mg DAILY PO 02/12/25 10:00 02/15/25 10:12 60 MG Sevelamer HCl 800 mg AC PO 02/12/25 11:30 02/15/25 11:23 800 MG Hydroxyzine Pamoate 25 mg BID PRN PO 02/12/25 09:30 Apixaban 5 mg BID PO 02/12/25 22:00 02/14/25 21:11 5 MG Hydralazine HCl 50 mg TID PO 02/12/25 14:00 02/15/25 05:33 50 MG Omeprazole 20 mg DAILY PO 02/13/25 10:00 02/14/25 10:17 20 MG Alprazolam 2 mg DAILY PO 02/12/25 12:15 02/15/25 10:13 2 MG Clonidine HCl 0.1 mg Q8HP PRN PO 02/12/25 14:45 02/15/25 08:00 0.1 MG Hydralazine HCl 10 mg Q6HP PRN IV 02/13/25 19:30 02/14/25 08:41 10 MG Laboratory Results Laboratory Tests 02/15/25 09:45 Chemistry Test 02/15/25 09:45 Calcium Level 10.8 mg/dL (8.7-10.4) H Microbiology Microbiology Date/Time Source Procedure Growth Status 02/12/25 11:47 Hand Gram Stain - Final Resulted 02/12/25 11:47 Hand Wound Culture - Preliminary Resulted Labs and/or images reviewed: Labs reviewed by me Assessment/Plan Assessment/Plan End-stage renal disease on hemodialysis, the patient missed dialysis Medical noncompliant Fluid overload, Cardiomegaly, Pulmonary edema, Hypertension, Polysubstance abuse, Left arm wound, look like ? skin cancer. Plan: Continuing current management. Continuing with hemodialysis. Advised to stop using drugs more than 15 minutes Continuing hypertensive medication Appreciate nephrology input Advice patient to follow up with Electrotyper Apprentice for biopsy of the lesion on his left arm to rule out skin cancer. This medical document was created using an electronic medical record system with M*M [employer] direct computerized dictation system. Although this document has been carefully reviewed, there may still be some phonetic and typographical errors. These areas are purely typographical due to imperfections of the software programs, and do not reflect any compromise in the patient's medical care. Plan discussed with: Patient, Other (RN) My Orders Orders - MARGUERITE TA MD Procedure Category Date Status Time Complete Blood Count LAB 02/15/25 Logged 07:23 Date of Service: February 15, 2025 Billing Provider: MARGUERITE TA MD Common Visit Codes: [id number] INP/OBS CARE(HIGH) MARGUERITE TA MD February 15, 2025 12:03
--- NOTE | 2025-02-15 14:38 | DVHINCON2 ---
Date of Service if different f: February 15, 2025 Time of Service: 14:16 Consultation ([facility]) Consulting Physician: BRYAN LLAMAS MD Labs Laboratory Tests Test 02/12/25 04:37 02/13/25 05:08 02/14/25 06:25 02/15/25 09:45 Prothrombin Time 11.6 sec (9.3-11.8) Prothromb Time International Ratio 1.11 (0.9-1.15) Activated Partial Thromboplast Time 25.6 SEC (24.5-34.5) B-Type Natriuretic Peptide 2042.35 pg/mL (0-100) Total Bilirubin 0.3 mg/dL (0.2-1.0) Aspartate Amino Transf (AST/SGOT) 9 U/L (13-40) Alanine Aminotransferase (ALT/SGPT) 11 U/L (7-40) Alkaline Phosphatase 74 U/L (46-116) Total Protein 6.9 g/dL (5.7-8.2) Albumin 4.1 g/dL (3.2-4.8) Eosinophils (%) (Auto) 3.8 % (0.0-7.0) Eosinophils # (Auto) 0.3 10 ^3/uL (0-0.8) Basophils # (Auto) 0.1 10 ^3/uL (0-0.2) Nucleated Red Blood Cells 0.1 % Sodium Level 135 mmol/L (136-145) Potassium Level 6.0 mmol/L (3.5-5.1) Chloride Level 95 mmol/L (98-107) Carbon Dioxide Level 22 mmol/L (20-31) Anion Gap 18 (5-15) Blood Urea Nitrogen 102 mg/dL (9-23) Creatinine 14.52 mg/dL (0.700-1.30) Glomerular Filtration Rate Calc 4 mL/min (>90) BUN/Creatinine Ratio 7.0 (10.0-20.0) Serum Glucose 96 mg/dL (74-106) Calcium Level 10.8 mg/dL (8.7-10.4) Microbiology Date/Time Source Procedure Growth Status 02/12/25 11:47 Hand Gram Stain - Final Complete 02/12/25 11:47 Hand Wound Culture - Final Complete Appearance: Older than stated age Psychomotor activity: Lethargic Behavioral: Cooperative Eye contact: Limited Speech: WNL Affect: Appropriate, Mood Congruent Mood: Anxious Thought processes: Linear/Goal-directed Thought content: WNL Suicidal ideations: Absent Homicidal ideations: Absent Orientation: Person, Place, Time, Situation Memory intact: Recent Intellect: Average Abstractability: WNL Concentration: Limited Attention: Limited Judgement: WNL Insight: Fair Vitals Vital Signs Date Time Temp Pulse Resp B/P (MAP) Pulse Ox O2 Delivery O2 Flow Rate FiO2 02/15/25 12:35 97.8 62 18 174/98 (123) 93 97.8 02/15/25 07:25 Nasal Cannula 5.0 02/15/25 07:25 40 Current medications Current Medications Medications Dose Ordered Sig/Harsh Route Start Time Stop Time Status Last Admin Dose Admin Sodium Chloride 10 ml Q8HR IV 02/12/25 14:00 02/15/25 05:27 10 ML Acetaminophen/ Hydrocodone Bitart 1 tab Q4HP PRN PO 02/12/25 07:30 02/14/25 23:47 1 TAB Ondansetron HCl 4 mg Q4HP PRN IV 02/12/25 07:30 02/12/25 22:24 4 MG Docusate Sodium 100 mg BIDPRN PRN PO 02/12/25 07:30 Acetaminophen 650 mg Q6HP PRN PO 02/12/25 07:30 02/13/25 16:22 650 MG Morphine Sulfate 2 mg Q4HPRN PRN IV 02/12/25 07:30 02/15/25 06:07 2 MG Calcium Acetate 1,334 mg TIDWMEALS PO 02/12/25 12:00 02/15/25 11:23 1,334 MG Nifedipine 60 mg DAILY PO 02/12/25 10:00 02/15/25 10:12 60 MG Sevelamer HCl 800 mg AC PO 02/12/25 11:30 02/15/25 11:23 800 MG Hydroxyzine Pamoate 25 mg BID PRN PO 02/12/25 09:30 Apixaban 5 mg BID PO 02/12/25 22:00 02/14/25 21:11 5 MG Hydralazine HCl 50 mg TID PO 02/12/25 14:00 02/15/25 05:33 50 MG Omeprazole 20 mg DAILY PO 02/13/25 10:00 02/14/25 10:17 20 MG Clonidine HCl 0.1 mg Q8HP PRN PO 02/12/25 14:45 02/15/25 08:00 0.1 MG Hydralazine HCl 10 mg Q6HP PRN IV 02/13/25 19:30 02/14/25 08:41 10 MG Alprazolam 1 mg DAILY PO 02/16/25 10:00 Treatment plan discussed: With staff Medication adjusted: Yes Labs ordered: No Psychotherapy provided: No Type: Voluntary History of Present Illness Reason for Consult : psychiatric evaluation PER ED PHYSICIAN: 54-year-old male came to ER via EMS for shortness of breath. Patient has history of hypertension, congestive heart failure, end-stage renal disease, currently on dialysis every Friday, , Friday, status post CABG. Patient's states he was unable to get his dialysis session last Friday and . Patient feels short of breath and swollen and states he could not wait for his scheduled dialysis session today at 1030am. HE as been having headaches, dizziness and feels his anxiety acting up again. PSYCHIATRIST HPI: The patient was seen and evaluated at [facility] via telepsychiatry platform. 54 yr old male was admitted for kidney failure. He reported that he has dealt with anxiety for a while. He is somewhat somnolent during the interview so provides short one word answers to most questions. He stated he has used xanax in the past for his anxiety but denied being on an SSRI. He reported he has a long history of drug use and his main drug of choice now is marijuana although he sometimes uses fentanyl. He was unable to go into detail about the extent or symptoms of his anxiety as he was very somnolent. He denied having suicidal and homicidal ideation and auditory hallucinations. Past Psychiatric History : No h/o hospitalization, treatment or suicide attempts. Past Medical History: HTN, CHF, ESRD on dialysis, cardiac disease S/P CABG Current Medications: None Substance use: MJ use daily. Occasional Fentanyl use. He denied recent use of stimulants or other drugs although an earlier reported stated he would use anything he could get his hands on. Social History : Lives in [place]. . Seven children Diagnosis: UNSPECIFIED ANXIETY DISORDER F41.9; Polysubstance use disorder (Cannabis, Opioids) Formulation: This 54yr old male appears to suffer from anxiety and polysubstance use. He may benefit from starting an SSRI to help reduce his anxiety. He is not recommended to continue on benzodiazepines given his substance use issues. Plan: 1.The patient is psychologically cleared for discharge. No sitter is needed. 2. Legal-voluntary 3. Medication: Recommend starting Lexapro 5mg qam for anxiety. This may be titrated to 10mg in a few days if it is tolerated. 4. Contact psychiatry if further follow up or reevaluation is desired. Follow up with outpatient mental health for medication management and therapy. Recommend attending substance rehab and refraining from substance use. 5. Case discussed with ELEANOR Mckeon. Assessment/Diagnosis/Plan Reviewed: Labs, Medications, Previous Orders BRYAN LLAMAS MD February 15, 2025 14:17
[2025-02-15 14:52] LABS: Basophils # (auto) 0.1 10 ^3/uL (0-0.2); Basophils % (auto) 0.8 % (0.0-2.0); Eosinophils # (auto) 0.2 10 ^3/uL (0-0.8); Eosinophils % (auto) 3.3 % (0.0-7.0); Hematocrit 31.9 % (41.0-53.0); Hemoglobin 10.6 g/dL (13.5-17.5); Lymphocytes # (auto) 0.3 10 ^3/uL (0.4-5.4); Lymphocytes % (auto) 5.5 % (10.0-50.0); Mean Corpuscular Hgb Conc. 33.2 g/dL (32.0-36.0); Mean Corpuscular Volume 93.2 fL (80.0-100.0); Monocytes # (auto) 0.3 10 ^3/uL (0-1.3); Monocytes % (auto) 4.2 % (0.0-12.0); Neutrophils # (auto) 5.4 10 ^3/uL (1.6-8.6); Neutrophils % (auto) 86.2 % (37.0-80.0); Platelet Count (auto) 293 10^3/uL (140-450); Red Blood Cells 3.42 10^6/uL (4.5-5.90); Red Cell Distribution Width 14.5 % (11.8-14.3); White Blood Cell 6.2 10^3/uL (4.4-10.8)
--- NOTE | 2025-02-15 19:41 | DVHPN2 ---
Progress Note - Dictate Date Seen: February 15, 2025 Medical Necessity Reason Pt with a Central, PICC or Fol: Yes Subjective Patient seen earlier today, resting comfortably. vital signs Vital Sign Date Time Temp Pulse Resp B/P (MAP) Pulse Ox O2 Delivery O2 Flow Rate FiO2 02/15/25 18:27 80 149/73 (98) 94 02/15/25 16:58 98.6 18 98.6 02/15/25 08:00 Nasal Cannula* 5 N/A Bi-Pap+ medications Current Medications Medications Dose Ordered Sig/Harsh Route Start Time Stop Time Status Last Admin Dose Admin Sodium Chloride 10 ml Q8HR IV 02/12/25 14:00 02/15/25 05:27 10 ML Acetaminophen/ Hydrocodone Bitart 1 tab Q4HP PRN PO 02/12/25 07:30 02/14/25 23:47 1 TAB Ondansetron HCl 4 mg Q4HP PRN IV 02/12/25 07:30 02/12/25 22:24 4 MG Docusate Sodium 100 mg BIDPRN PRN PO 02/12/25 07:30 Acetaminophen 650 mg Q6HP PRN PO 02/12/25 07:30 02/13/25 16:22 650 MG Morphine Sulfate 2 mg Q4HPRN PRN IV 02/12/25 07:30 02/15/25 06:07 2 MG Calcium Acetate 1,334 mg TIDWMEALS PO 02/12/25 12:00 02/15/25 17:15 1,334 MG Nifedipine 60 mg DAILY PO 02/12/25 10:00 02/15/25 10:12 60 MG Sevelamer HCl 800 mg AC PO 02/12/25 11:30 02/15/25 17:14 800 MG Hydroxyzine Pamoate 25 mg BID PRN PO 02/12/25 09:30 Apixaban 5 mg BID PO 02/12/25 22:00 02/14/25 21:11 5 MG Hydralazine HCl 50 mg TID PO 02/12/25 14:00 02/15/25 05:33 50 MG Clonidine HCl 0.1 mg Q8HP PRN PO 02/12/25 14:45 02/15/25 17:14 0.1 MG Hydralazine HCl 10 mg Q6HP PRN IV 02/13/25 19:30 02/14/25 08:41 10 MG Alprazolam 1 mg DAILY PO 02/16/25 10:00 Pantoprazole Sodium 40 mg DAILY PO 02/16/25 10:00 objective Gen: nad heent: nc/at, mmm lungs: cta anteriorly cvs: no rub abd: soft, bowel sounds audible ext: no edema skin: no rash laboratory and microbiology Laboratory Tests 02/15/25 14:32 02/15/25 09:45 Test 02/15/25 09:45 Range/Units Serum Glucose 96 74-106 mg/dL Assessment/Plan IMP ESRD on HD- had HD today HTN Hx of CHF Polysubstance abuse REC Dialysis today We will discuss with web content & social media manager, outpatient dialysis clinic regarding outpatient chair time. Dietary Evaluation Review Recommendations by RD: Protein Supplementation Comments: 1) Initiate Nepro bid. Encourage optimal PO intake 2) Collect renal panel including phosphorus lab 3) Follow-up with nephrology and cardiology 4) Follow-up with case management social worker regarding polysubstance abuse 5) Continue to monitor I&O, labs, and skin integrity Expected Outcomes/Goals: 1) appetite and labs to improve 2) wound to improve 3) f/u in 3-5 days Plan discussed with: LEILA Blanco MD February 15, 2025 19:41
[2025-02-16] VITALS (10 sets, daily range): BP systolic 138–181; BP diastolic 73–107; PULSE 53–92; RESP 16–19; TEMP 97.3–98.2; O2SAT 94–98
[2025-02-16] MEDS: ALPRAZolam 0.5 MG TAB PO SCH (11:08)
[2025-02-16] MEDS: PANTOPRAZOLE 40 MG TAB PO SCH (11:09)
--- NOTE | 2025-02-16 11:25 | DVHPN2 ---
Subjective The patient is seen and examined at bedside. Complain of shortness for breath. Also nose bleed. Reviewed: Care Plan, H&P, Labs, Medications, Previous Orders, Radiology Changes from previous H/P or p: No Changes Eyes: No Pain, No Vision change, No Conjunctivae inflammation, No Eyelid inflammation, No Other, No Redness ENT: No Ear pain, No Ear discharge, No Nose pain, No Nose discharge, No Nose congestion, No Mouth pain, No Mouth swelling, No Throat pain, No Throat swelling, No Other Cardiovascular: No Chest Pain, No Palpitations, No Orthopnea, No Paroxysmal Noc. Dyspnea, No Edema, No Lt Headedness, No Other Respiratory: No Cough, No Dry; Shortness of breath, SOB with excertion; No Wheezing, No Hemoptysis, No Pleuritic Pain, No Sputum, No Other Gastrointestinal: No Nausea, No Vomiting, No Abdominal Pain, No Diarrhea, No Constipation, No Melena, No Hematochezia, No Other Genitourinary: No Dysuria, No Frequency, No Incontinence, No Hematuria, No Retention, No Other Skin: No Rash, No Lesions, No Jaundice, No Bruising, No Other Objective Vitals Vital Signs Date Time Temp Pulse Resp B/P (MAP) Pulse Ox O2 Delivery O2 Flow Rate FiO2 02/16/25 11:10 64 17 177/90 02/16/25 09:00 97.5 96 97.5 02/16/25 00:28 5.0 40 02/15/25 19:51 Nasal Cannula* Bi-Pap+ Intake/Output Intake and Output 02/16/25 07:00 Intake Total 905 ml Output Total 0 ml Balance 905 ml Intake Oral 905 ml Output Urine Total 0 ml General Appearance: Alert, Cooperative, No acute distress HEENT: Atraumatic, PERRLA, EOMI, Mucous membr. moist/pink Neck: Supple Lungs: Clear to auscultation, Normal air movement Cardiovascular: Regular rate, Normal S1, Normal S2, No murmurs, Gallops, Rubs Abdomen: Normal bowel sounds, Soft, No tenderness Extremities: Normal pulses Neuro: Cranial nerves 3-12 NL Psych/Mental Status: Mental status NL Medications Current Medications Medications Dose Ordered Sig/Harsh Route Start Time Stop Time Status Last Admin Dose Admin Sodium Chloride 10 ml Q8HR IV 02/12/25 14:00 02/16/25 05:44 10 ML Acetaminophen/ Hydrocodone Bitart 1 tab Q4HP PRN PO 02/12/25 07:30 02/16/25 08:41 1 TAB Ondansetron HCl 4 mg Q4HP PRN IV 02/12/25 07:30 02/12/25 22:24 4 MG Docusate Sodium 100 mg BIDPRN PRN PO 02/12/25 07:30 Acetaminophen 650 mg Q6HP PRN PO 02/12/25 07:30 02/13/25 16:22 650 MG Morphine Sulfate 2 mg Q4HPRN PRN IV 02/12/25 07:30 02/16/25 11:10 2 MG Calcium Acetate 1,334 mg TIDWMEALS PO 02/12/25 12:00 02/16/25 08:40 1,334 MG Nifedipine 60 mg DAILY PO 02/12/25 10:00 02/16/25 11:09 60 MG Sevelamer HCl 800 mg AC PO 02/12/25 11:30 02/16/25 11:08 800 MG Hydroxyzine Pamoate 25 mg BID PRN PO 02/12/25 09:30 Apixaban 5 mg BID PO 02/12/25 22:00 02/14/25 21:11 5 MG Hydralazine HCl 50 mg TID PO 02/12/25 14:00 02/16/25 05:45 50 MG Clonidine HCl 0.1 mg Q8HP PRN PO 02/12/25 14:45 02/16/25 08:42 0.1 MG Hydralazine HCl 10 mg Q6HP PRN IV 02/13/25 19:30 02/14/25 08:41 10 MG Alprazolam 1 mg DAILY PO 02/16/25 10:00 02/16/25 11:08 1 MG Pantoprazole Sodium 40 mg DAILY PO 02/16/25 10:00 02/16/25 11:09 40 MG Laboratory Results Laboratory Tests 02/15/25 09:45 02/15/25 14:32 Microbiology Microbiology Date/Time Source Procedure Growth Status 02/12/25 11:47 Hand Gram Stain - Final Complete 02/12/25 11:47 Hand Wound Culture - Final Complete Labs and/or images reviewed: Labs reviewed by me Assessment/Plan Assessment/Plan End-stage renal disease on hemodialysis, the patient missed dialysis Medical noncompliant Fluid overload, Cardiomegaly, Pulmonary edema, Hypertension, Polysubstance abuse, Left arm wound, look like ? skin cancer. Plan: Continuing current management. Continuing with hemodialysis. Advised to stop using drugs more than 15 minutes Continuing hypertensive medication Appreciate nephrology input Advice patient to follow up with Bulk Sealer Operator for biopsy of the lesion on his left arm to rule out skin cancer. This medical document was created using an electronic medical record system with M*M [employer] direct computerized dictation system. Although this document has been carefully reviewed, there may still be some phonetic and typographical errors. These areas are purely typographical due to imperfections of the software programs, and do not reflect any compromise in the patient's medical care. Plan discussed with: Patient My Orders Orders - MARGUERITE TA MD Procedure Category Date Status Time Alprazolam Tablet PHA 02/16/25 In Process (Xanax Tablet) 10:00 Communication Order ORDERS 02/15/25 Transmitted 12:12 Apply Barrier Cream LELIA 02/15/25 In Process 11:25 * Fundraising Consultant CONS 02/16/25 Transmitted Consult 08:48 Date of Service: February 16, 2025 Billing Provider: MARGUERITE TA MD Common Visit Codes: [id number] INP/OBS CARE(HIGH) MARGUERITE TA MD February 16, 2025 11:25
--- NOTE | 2025-02-16 12:03 | DVHPN2 ---
Progress Note Date Seen: February 16, 2025 Medical Necessity Reason Pt with a Central, PICC or Fol: Yes Subjective Patient reports: Feels better Objective vital signs Vital Sign Date Time Temp Pulse Resp B/P (MAP) Pulse Ox O2 Delivery O2 Flow Rate FiO2 02/16/25 11:10 64 17 177/90 02/16/25 09:00 97.5 96 97.5 02/16/25 00:28 5.0 40 02/15/25 19:51 Nasal Cannula* Bi-Pap+ Total Intake and Output 02/15/25 02/15/25 02/16/25 14:59 22:59 06:59 Intake Total 105 ml 250 ml 550 ml Output Total 0 ml Balance 105 ml 250 ml 550 ml medications Current Medications Medications Dose Ordered Sig/Harsh Route Start Time Stop Time Status Last Admin Dose Admin Sodium Chloride 10 ml Q8HR IV 02/12/25 14:00 02/16/25 05:44 10 ML Acetaminophen/ Hydrocodone Bitart 1 tab Q4HP PRN PO 02/12/25 07:30 02/16/25 08:41 1 TAB Ondansetron HCl 4 mg Q4HP PRN IV 02/12/25 07:30 02/12/25 22:24 4 MG Docusate Sodium 100 mg BIDPRN PRN PO 02/12/25 07:30 Acetaminophen 650 mg Q6HP PRN PO 02/12/25 07:30 02/13/25 16:22 650 MG Morphine Sulfate 2 mg Q4HPRN PRN IV 02/12/25 07:30 02/16/25 11:10 2 MG Calcium Acetate 1,334 mg TIDWMEALS PO 02/12/25 12:00 02/16/25 08:40 1,334 MG Nifedipine 60 mg DAILY PO 02/12/25 10:00 02/16/25 11:09 60 MG Sevelamer HCl 800 mg AC PO 02/12/25 11:30 02/16/25 11:08 800 MG Hydroxyzine Pamoate 25 mg BID PRN PO 02/12/25 09:30 Apixaban 5 mg BID PO 02/12/25 22:00 02/14/25 21:11 5 MG Hydralazine HCl 50 mg TID PO 02/12/25 14:00 02/16/25 05:45 50 MG Clonidine HCl 0.1 mg Q8HP PRN PO 02/12/25 14:45 02/16/25 08:42 0.1 MG Hydralazine HCl 10 mg Q6HP PRN IV 02/13/25 19:30 02/14/25 08:41 10 MG Alprazolam 1 mg DAILY PO 02/16/25 10:00 02/16/25 11:08 1 MG Pantoprazole Sodium 40 mg DAILY PO 02/16/25 10:00 02/16/25 11:09 40 MG Examination: GENERAL:Normal, CVS:Normal laboratory and microbiology Laboratory Tests 02/15/25 14:32 02/15/25 09:45 Test 02/15/25 09:45 Range/Units Serum Glucose 96 74-106 mg/dL Microbiology Date/Time Source Procedure Growth Status 02/12/25 11:47 Hand Gram Stain - Final Complete 02/12/25 11:47 Hand Wound Culture - Final Complete Problem List/Assessment/Plan Problem List/Assessment/Plan End-stage renal disease on hemodialysis Hyperkalemia Polysubstance abuse Hypertension Status post hemodialysis treatment yesterday Obtain labs today Renal diet Continue blood pressure medications Rest of care as per primary medical team Plan discussed with: Patient Dietary Evaluation Review Recommendations by RD: Protein Supplementation Comments: 1) Initiate Nepro bid. Encourage optimal PO intake 2) Collect renal panel including phosphorus lab 3) Follow-up with nephrology and cardiology 4) Follow-up with social work specialist regarding polysubstance abuse 5) Continue to monitor I&O, labs, and skin integrity Expected Outcomes/Goals: 1) appetite and labs to improve 2) wound to improve 3) f/u in 3-5 days UYLI QUINONES MD February 16, 2025 12:03
[2025-02-16 12:19] LABS: Basophils # (auto) 0.1 10 ^3/uL (0-0.2); Basophils % (auto) 1.1 % (0.0-2.0); Eosinophils # (auto) 0.3 10 ^3/uL (0-0.8); Eosinophils % (auto) 6.2 % (0.0-7.0); Hematocrit 29.4 % (41.0-53.0); Hemoglobin 10.1 g/dL (13.5-17.5); Lymphocytes # (auto) 0.4 10 ^3/uL (0.4-5.4); Lymphocytes % (auto) 7.7 % (10.0-50.0); Mean Corpuscular Hemoglobin 31.6 pg (28.0-32.0); Mean Corpuscular Hgb Conc. 34.4 g/dL (32.0-36.0); Mean Corpuscular Volume 91.9 fL (80.0-100.0); Monocytes # (auto) 0.3 10 ^3/uL (0-1.3); Neutrophils # (auto) 4.2 10 ^3/uL (1.6-8.6); Platelet Count (auto) 294 10^3/uL (140-450); Red Cell Distribution Width 14.2 % (11.8-14.3); White Blood Cell 5.3 10^3/uL (4.4-10.8)
[2025-02-16 12:22] LABS: Chloride 100 mmol/L (98-107); Potassium 5.1 mmol/L (3.5-5.1); Sodium 141 mmol/L (136-145)
[2025-02-16 12:23] LABS: Anion Gap 10 (5-15); Carbon Dioxide 31 mmol/L (20-31)
[2025-02-16 12:27] LABS: INR 1.08 (0.9-1.15); Partial Thromboplastin Time 35.9 SEC (24.5-34.5); Prothrombin Time 11.4 sec (9.3-11.8)
[2025-02-16 12:28] LABS: Calcium 10.8 mg/dL (8.7-10.4)
[2025-02-16 12:29] LABS: BUN/Creatinine Ratio 5.6 (10.0-20.0); Blood Urea Nitrogen 57 mg/dL (9-23); Glucose 111 mg/dL (74-106)
[2025-02-16] MEDS: MORPHINE SULFATE 4 MG/ML SYR/VIAL IV PRN (18:21)
[2025-02-17] VITALS (8 sets, daily range): BP systolic 132–186; BP diastolic 72–103; PULSE 69–80; RESP 18–19; TEMP 97.4–98; O2SAT 91–96
[2025-02-17] MEDS: DOCUSATE SOD 100 MG CAP PO PRN (05:27)
--- NOTE | 2025-02-17 12:11 | DVHPN2 ---
Subjective The patient is seen and examined at bedside. Complain of shortness for breath. Also nose bleed. Reviewed: Care Plan, H&P, Labs, Medications, Previous Orders, Radiology Changes from previous H/P or p: No Changes Eyes: No Pain, No Vision change, No Conjunctivae inflammation, No Eyelid inflammation, No Other, No Redness ENT: No Ear pain, No Ear discharge, No Nose pain, No Nose discharge, No Nose congestion, No Mouth pain, No Mouth swelling, No Throat pain, No Throat swelling, No Other Cardiovascular: No Chest Pain, No Palpitations, No Orthopnea, No Paroxysmal Noc. Dyspnea, No Edema, No Lt Headedness, No Other Respiratory: No Cough, No Dry; Shortness of breath, SOB with excertion; No Wheezing, No Hemoptysis, No Pleuritic Pain, No Sputum, No Other Gastrointestinal: No Nausea, No Vomiting, No Abdominal Pain, No Diarrhea, No Constipation, No Melena, No Hematochezia, No Other Genitourinary: No Dysuria, No Frequency, No Incontinence, No Hematuria, No Retention, No Other Skin: No Rash, No Lesions, No Jaundice, No Bruising, No Other Objective Vitals Vital Signs Date Time Temp Pulse Resp B/P (MAP) Pulse Ox O2 Delivery O2 Flow Rate FiO2 02/17/25 09:57 186/103 02/17/25 09:30 97.4 80 18 95 97.4 02/17/25 08:25 Nasal Cannula* 6 97.0 Bi-Pap+ 97.0 Intake/Output Intake and Output 02/17/25 07:00 Intake Total 420 ml Balance 420 ml Intake Oral 420 ml General Appearance: Alert, Cooperative, No acute distress HEENT: Atraumatic, PERRLA, EOMI, Mucous membr. moist/pink Neck: Supple Lungs: Clear to auscultation, Normal air movement Cardiovascular: Regular rate, Normal S1, Normal S2, No murmurs, Gallops, Rubs Abdomen: Normal bowel sounds, Soft, No tenderness Extremities: Normal pulses Neuro: Cranial nerves 3-12 NL Psych/Mental Status: Mental status NL Medications Current Medications Medications Dose Ordered Sig/Harsh Route Start Time Stop Time Status Last Admin Dose Admin Sodium Chloride 10 ml Q8HR IV 02/12/25 14:00 02/17/25 05:19 10 ML Acetaminophen/ Hydrocodone Bitart 1 tab Q4HP PRN PO 5/24/25 07:30 02/17/25 01:00 1 TAB Ondansetron HCl 4 mg Q4HP PRN IV 02/12/25 07:30 02/12/25 22:24 4 MG Docusate Sodium 100 mg BIDPRN PRN PO 02/12/25 07:30 02/17/25 05:27 100 MG Acetaminophen 650 mg Q6HP PRN PO 02/12/25 07:30 02/13/25 16:22 650 MG Calcium Acetate 1,334 mg TIDWMEALS PO 02/12/25 12:00 02/17/25 08:33 1,334 MG Nifedipine 60 mg DAILY PO 02/12/25 10:00 02/17/25 09:57 60 MG Sevelamer HCl 800 mg AC PO 02/12/25 11:30 02/17/25 05:57 800 MG Hydroxyzine Pamoate 25 mg BID PRN PO 02/12/25 09:30 Apixaban 5 mg BID PO 02/12/25 22:00 02/17/25 09:56 5 MG Hydralazine HCl 50 mg TID PO 02/12/25 14:00 02/17/25 05:18 50 MG Clonidine HCl 0.1 mg Q8HP PRN PO 02/12/25 14:45 02/16/25 08:42 0.1 MG Hydralazine HCl 10 mg Q6HP PRN IV 02/13/25 19:30 02/16/25 12:19 10 MG Alprazolam 1 mg DAILY PO 02/16/25 10:00 02/17/25 09:56 1 MG Pantoprazole Sodium 40 mg DAILY PO 02/16/25 10:00 02/17/25 09:57 40 MG Morphine Sulfate 2 mg Q4HPRN PRN IV 02/16/25 17:30 02/17/25 05:19 2 MG Laboratory Results Laboratory Tests 02/16/25 11:48 Microbiology Microbiology Date/Time Source Procedure Growth Status 02/12/25 11:47 Hand Gram Stain - Final Complete 02/12/25 11:47 Hand Wound Culture - Final Complete Labs and/or images reviewed: Labs reviewed by me Assessment/Plan Assessment/Plan End-stage renal disease on hemodialysis, the patient missed dialysis Medical noncompliant Fluid overload, Cardiomegaly, Pulmonary edema, Hypertension, Polysubstance abuse, Left arm wound, look like ? skin cancer. Suicidal ideation Plan: Continuing current management. Continuing with hemodialysis. Advised to stop using drugs more than 15 minutes Continuing hypertensive medication Appreciate nephrology input Advice patient to follow up with [facility] for biopsy of the lesion on his left arm to rule out skin cancer. Per patient he wants to kill himself after he heard that we plan to discharge him home. He had a tele-psychiatrist evaluation when he first come in, at that time, the psychiatrist states that he was not medically stable to evaluate for his suicidal thought, I will reconsult telepsychiatrist today. 24 hours sitter. Will order hepatitis panel. Also patient had HD in [place] and now he want to have it here. So will consult CM for set up HD chair time. This medical document was created using an electronic medical record system with [employer] direct computerized dictation system. Although this document has been carefully reviewed, there may still be some phonetic and typographical errors. These areas are purely typographical due to imperfections of the software programs, and do not reflect any compromise in the patient's medical care. Plan discussed with: Patient Date of Service: February 17, 2025 Billing Provider: MARGUERITE TA MD Common Visit Codes: [id number] INP/OBS CARE(HIGH) MARGUERITE TA MD February 17, 2025 12:11
--- NOTE | 2025-02-17 12:22 | DVHPN2 ---
Progress Note Date Seen: February 17, 2025 Medical Necessity Reason Pt with a Central, PICC or Fol: No Subjective Patient reports: Feels better Changes from previous H/P or p: No Changes Objective vital signs Vital Sign Date Time Temp Pulse Resp B/P (MAP) Pulse Ox O2 Delivery O2 Flow Rate FiO2 02/17/25 09:57 186/103 02/17/25 09:30 97.4 80 18 95 97.4 02/17/25 08:25 Nasal Cannula* 6 97.0 Bi-Pap+ 97.0 Total Intake and Output 02/16/25 02/16/25 02/17/25 15:00 23:00 07:00 Intake Total 420 ml Balance 420 ml medications Current Medications Medications Dose Ordered Sig/Harsh Route Start Time Stop Time Status Last Admin Dose Admin Sodium Chloride 10 ml Q8HR IV 02/12/25 14:00 02/17/25 05:19 10 ML Acetaminophen/ Hydrocodone Bitart 1 tab Q4HP PRN PO 02/12/25 07:30 02/17/25 01:00 1 TAB Ondansetron HCl 4 mg Q4HP PRN IV 02/12/25 07:30 02/12/25 22:24 4 MG Docusate Sodium 100 mg BIDPRN PRN PO 02/12/25 07:30 02/17/25 05:27 100 MG Acetaminophen 650 mg Q6HP PRN PO 02/12/25 07:30 02/13/25 16:22 650 MG Calcium Acetate 1,334 mg TIDWMEALS PO 02/12/25 12:00 02/17/25 08:33 1,334 MG Nifedipine 60 mg DAILY PO 02/12/25 10:00 02/17/25 09:57 60 MG Sevelamer HCl 800 mg AC PO 02/12/25 11:30 02/17/25 05:57 800 MG Hydroxyzine Pamoate 25 mg BID PRN PO 02/12/25 09:30 Apixaban 5 mg BID PO 02/12/25 22:00 02/17/25 09:56 5 MG Hydralazine HCl 50 mg TID PO 02/12/25 14:00 02/17/25 05:18 50 MG Clonidine HCl 0.1 mg Q8HP PRN PO 02/12/25 14:45 02/16/25 08:42 0.1 MG Hydralazine HCl 10 mg Q6HP PRN IV 02/13/25 19:30 02/16/25 12:19 10 MG Alprazolam 1 mg DAILY PO 02/16/25 10:00 02/17/25 09:56 1 MG Pantoprazole Sodium 40 mg DAILY PO 02/16/25 10:00 02/17/25 09:57 40 MG Morphine Sulfate 2 mg Q4HPRN PRN IV 02/16/25 17:30 02/17/25 05:19 2 MG Examination: GENERAL:Normal, CVS:Normal laboratory and microbiology Laboratory Tests 02/16/25 11:48 Test 02/16/25 11:48 Range/Units Serum Glucose 111 H 74-106 mg/dL Microbiology Date/Time Source Procedure Growth Status 02/12/25 11:47 Hand Gram Stain - Final Complete 02/12/25 11:47 Hand Wound Culture - Final Complete Problem List/Assessment/Plan Problem List/Assessment/Plan End-stage renal disease on hemodialysis Hyperkalemia Polysubstance abuse Hypertension Hd today Renal diet Continue blood pressure medications Rest of care as per primary medical team Plan discussed with: Patient Dietary Evaluation Review Recommendations by RD: Protein Supplementation Comments: 1) Initiate Nepro bid. Encourage optimal PO intake 2) Collect renal panel including phosphorus lab 3) Follow-up with nephrology and cardiology 4) Follow-up with social media community manager regarding polysubstance abuse 5) Continue to monitor I&O, labs, and skin integrity Expected Outcomes/Goals: 1) appetite and labs to improve 2) wound to improve 3) f/u in 3-5 days YULI QUINONES MD February 17, 2025 12:22
[2025-02-17] MEDS: SODIUM CHL 0.9% 1000 ML BAG XX ONE (12:30)
[2025-02-18] VITALS (9 sets, daily range): BP systolic 138–177; BP diastolic 74–110; PULSE 68–87; RESP 17–19; TEMP 97.8–98; O2SAT 92–100
[2025-02-18] MEDS: SODIUM CHL 0.9% 1000 ML BAG XX ONE (07:30)
[2025-02-18 08:34] LABS: Anion Gap 8 (5-15); Carbon Dioxide 31 mmol/L (20-31); Chloride 100 mmol/L (98-107); Sodium 139 mmol/L (136-145)
[2025-02-18 08:36] LABS: Potassium 5.4 mmol/L (3.5-5.1)
[2025-02-18 08:40] LABS: BUN/Creatinine Ratio 4.7 (10.0-20.0); Glucose 98 mg/dL (74-106)
[2025-02-18 08:41] LABS: Blood Urea Nitrogen 41 mg/dL (9-23)
--- NOTE | 2025-02-18 11:24 | DVHPN2 ---
Progress Note Date Seen: February 18, 2025 Medical Necessity Reason Pt with a Central, PICC or Fol: No Objective vital signs Vital Sign Date Time Temp Pulse Resp B/P (MAP) Pulse Ox O2 Delivery O2 Flow Rate FiO2 02/18/25 08:22 181/97 02/18/25 08:21 87 16 02/18/25 07:04 97 Nasal Cannula 4.0 02/18/25 07:04 36 02/18/25 05:00 97.9 97.9 Total Intake and Output 02/17/25 02/17/25 02/18/25 15:00 23:00 07:00 Intake Total 986 ml Balance 986 ml medications Current Medications Medications Dose Ordered Sig/Harsh Route Start Time Stop Time Status Last Admin Dose Admin Sodium Chloride 10 ml Q8HR IV 02/12/25 14:00 02/18/25 06:01 10 ML Acetaminophen/ Hydrocodone Bitart 1 tab Q4HP PRN PO 02/12/25 07:30 02/18/25 00:31 1 TAB Ondansetron HCl 4 mg Q4HP PRN IV 02/12/25 07:30 02/12/25 22:24 4 MG Docusate Sodium 100 mg BIDPRN PRN PO 02/12/25 07:30 02/18/25 02:22 100 MG Acetaminophen 650 mg Q6HP PRN PO 02/12/25 07:30 02/13/25 16:22 650 MG Calcium Acetate 1,334 mg TIDWMEALS PO 02/12/25 12:00 02/18/25 08:22 1,334 MG Nifedipine 60 mg DAILY PO 02/12/25 10:00 02/18/25 08:22 60 MG Hydroxyzine Pamoate 25 mg BID PRN PO 02/12/25 09:30 Apixaban 5 mg BID PO 02/12/25 22:00 02/18/25 08:22 5 MG Hydralazine HCl 50 mg TID PO 02/12/25 14:00 02/18/25 06:01 50 MG Clonidine HCl 0.1 mg Q8HP PRN PO 02/12/25 14:45 02/18/25 06:02 0.1 MG Hydralazine HCl 10 mg Q6HP PRN IV 02/13/25 19:30 02/18/25 00:32 10 MG Alprazolam 1 mg DAILY PO 02/16/25 10:00 02/18/25 08:22 1 MG Pantoprazole Sodium 40 mg DAILY PO 02/16/25 10:00 02/18/25 08:22 40 MG Morphine Sulfate 2 mg Q4HPRN PRN IV 02/16/25 17:30 02/18/25 08:21 2 MG Examination: GENERAL:Normal, CVS:Normal laboratory and microbiology Laboratory Tests 02/18/25 07:55 02/16/25 11:48 Test 02/18/25 07:55 Range/Units Serum Glucose 98 74-106 mg/dL Microbiology Date/Time Source Procedure Growth Status 02/12/25 11:47 Hand Gram Stain - Final Complete 02/12/25 11:47 Hand Wound Culture - Final Complete Problem List/Assessment/Plan Problem List/Assessment/Plan End-stage renal disease on hemodialysis Hyperkalemia Polysubstance abuse Hypertension Hd today, K still elevated today despite treatment yesterday Renal diet Continue blood pressure medications Rest of care as per primary medical team Plan discussed with: Patient My Orders My Orders Orders - YULI QUINONES MD Procedure Category Date Status Time Hemodialysis Orders ORDERS 02/17/25 Transmitted 12:22 Dialysis Nursing LELIA 02/17/25 In Process Message 12:22 Document Fluid Input LELIA 02/17/25 In Process And Outpu 12:22 Hemodialysis Orders ORDERS 02/18/25 Transmitted 07:21 Dialysis Nursing LELIA 02/18/25 In Process Message 07:21 Document Fluid Input LELIA 02/18/25 In Process And Outpu 07:21 Dietary Evaluation Review Recommendations by RD: Protein Supplementation Comments: 1) Initiate Nepro bid. Encourage optimal PO intake 2) Collect renal panel including phosphorus lab 3) Follow-up with nephrology and cardiology 4) Follow-up with executive secretary social welfare regarding polysubstance abuse 5) Continue to monitor I&O, labs, and skin integrity Expected Outcomes/Goals: 1) appetite and labs to improve 2) wound to improve 3) f/u in 3-5 days YULI QUINONES MD February 18, 2025 11:24
--- NOTE | 2025-02-18 12:12 | DVHPN2 ---
Subjective The patient is seen and examined at bedside. Patient is sleepy today. No other complains. Reviewed: Care Plan, H&P, Labs, Medications, Previous Orders, Radiology Changes from previous H/P or p: No Changes Eyes: No Pain, No Vision change, No Conjunctivae inflammation, No Eyelid inflammation, No Other, No Redness ENT: No Ear pain, No Ear discharge, No Nose pain, No Nose discharge, No Nose congestion, No Mouth pain, No Mouth swelling, No Throat pain, No Throat swelling, No Other Cardiovascular: No Chest Pain, No Palpitations, No Orthopnea, No Paroxysmal Noc. Dyspnea, No Edema, No Lt Headedness, No Other Respiratory: No Cough, No Dry; Shortness of breath, SOB with excertion; No Wheezing, No Hemoptysis, No Pleuritic Pain, No Sputum, No Other Gastrointestinal: No Nausea, No Vomiting, No Abdominal Pain, No Diarrhea, No Constipation, No Melena, No Hematochezia, No Other Genitourinary: No Dysuria, No Frequency, No Incontinence, No Hematuria, No Retention, No Other Skin: No Rash, No Lesions, No Jaundice, No Bruising, No Other Objective Vitals Vital Signs Date Time Temp Pulse Resp B/P (MAP) Pulse Ox O2 Delivery O2 Flow Rate FiO2 02/18/25 08:22 181/97 02/18/25 08:21 87 16 02/18/25 07:04 97 Nasal Cannula 4.0 02/18/25 07:04 36 02/18/25 05:00 97.9 97.9 Intake/Output Intake and Output 02/18/25 06:59 Intake Total 986 ml Balance 986 ml Intake Oral 986 ml General Appearance: Alert, Cooperative, No acute distress HEENT: Atraumatic, PERRLA, EOMI, Mucous membr. moist/pink Neck: Supple Lungs: Clear to auscultation, Normal air movement Cardiovascular: Regular rate, Normal S1, Normal S2, No murmurs, Gallops, Rubs Abdomen: Normal bowel sounds, Soft, No tenderness Extremities: Normal pulses Neuro: Cranial nerves 3-12 NL Psych/Mental Status: Mental status NL Medications Current Medications Medications Dose Ordered Sig/Harsh Route Start Time Stop Time Status Last Admin Dose Admin Sodium Chloride 10 ml Q8HR IV 02/12/25 14:00 02/18/25 06:01 10 ML Acetaminophen/ Hydrocodone Bitart 1 tab Q4HP PRN PO 02/12/25 07:30 02/18/25 00:31 1 TAB Ondansetron HCl 4 mg Q4HP PRN IV 02/12/25 07:30 02/12/25 22:24 4 MG Docusate Sodium 100 mg BIDPRN PRN PO 02/12/25 07:30 02/18/25 02:22 100 MG Acetaminophen 650 mg Q6HP PRN PO 02/12/25 07:30 02/13/25 16:22 650 MG Calcium Acetate 1,334 mg TIDWMEALS PO 02/12/25 12:00 02/18/25 08:22 1,334 MG Nifedipine 60 mg DAILY PO 02/12/25 10:00 02/18/25 08:22 60 MG Hydroxyzine Pamoate 25 mg BID PRN PO 02/12/25 09:30 Apixaban 5 mg BID PO 02/12/25 22:00 02/18/25 08:22 5 MG Hydralazine HCl 50 mg TID PO 02/12/25 14:00 02/18/25 06:01 50 MG Clonidine HCl 0.1 mg Q8HP PRN PO 02/12/25 14:45 02/18/25 06:02 0.1 MG Hydralazine HCl 10 mg Q6HP PRN IV 02/13/25 19:30 02/18/25 00:32 10 MG Alprazolam 1 mg DAILY PO 02/16/25 10:00 02/18/25 08:22 1 MG Pantoprazole Sodium 40 mg DAILY PO 02/16/25 10:00 02/18/25 08:22 40 MG Morphine Sulfate 2 mg Q4HPRN PRN IV 02/16/25 17:30 02/18/25 08:21 2 MG Laboratory Results Laboratory Tests 02/16/25 11:48 02/18/25 07:55 Chemistry Test 02/18/25 07:55 Calcium Level 11.0 mg/dL (8.7-10.4) H Microbiology Microbiology Date/Time Source Procedure Growth Status 02/12/25 11:47 Hand Gram Stain - Final Complete 02/12/25 11:47 Hand Wound Culture - Final Complete Labs and/or images reviewed: Labs reviewed by me Assessment/Plan Assessment/Plan End-stage renal disease on hemodialysis, the patient missed dialysis Medical noncompliant Fluid overload, Cardiomegaly, Pulmonary edema, Hypertension, Polysubstance abuse, Left arm wound, look like ? skin cancer. Suicidal ideation Plan: Continuing current management. Continuing with hemodialysis. Advised to stop using drugs more than 15 minutes Continuing hypertensive medication Appreciate nephrology input Advice patient to follow up with [facility] for biopsy of the lesion on his left arm to rule out skin cancer. Per patient he wants to kill himself after he heard that we plan to discharge him home. He had a tele-psychiatrist evaluation when he first come in, at that time, the psychiatrist states that he was not medically stable to evaluate for his suicidal thought, I will reconsult telepsychiatrist today. 24 hours sitter. Will order hepatitis panel. DW psychiatrist, patient is low risk of sucidal ideation. Can be discharge when medically stable and clear by hardwood floor layer. K still remained high, Continue HD per hardwood floor layer DEVI , patient should continue with HD at [place] after discharge, per insurance arrangement. This medical document was created using an electronic medical record system with [employer] direct computerized dictation system. Although this document has been carefully reviewed, there may still be some phonetic and typographical errors. These areas are purely typographical due to imperfections of the software programs, and do not reflect any compromise in the patient's medical care. Plan discussed with: Patient, Other (RN, case management manager, psychiatrist.) My Orders Orders - MARGUERITE TA MD Procedure Category Date Status Time Soc Telemed Psych CONS 02/17/25 Transmitted Consult 12:32 Sitter At Bedside ORDERS 02/17/25 Transmitted 12:32 * Puppy Walker CONS 02/17/25 Transmitted Consult Acute Hepatitis Panel LAB 02/17/25 In Process 22:01 Date of Service: February 18, 2025 Billing Provider: MARGUERITE TA MD Common Visit Codes: [id number] INP/OBS CARE(HIGH) MARGUERITE TA MD February 18, 2025 12:12
[2025-02-18 13:05] LABS: Hepatitis A Ab IgM Negative; Hepatitis B Core IgM Negative (Negative); Hepatitis C Antibody Negative (Negative)
[2025-02-18 13:06] LABS: Hepatitis B Surface Antigen Positive (Negative)
--- NOTE | 2025-02-18 16:30 | DVHINCON2 ---
Date of Service if different f: February 18, 2025 Time of Service: 14:00 Consultation ([facility]) Consulting Physician: LEXIS BUTLER MD Labs Laboratory Tests Test 02/12/25 04:37 02/13/25 05:08 02/16/25 11:48 02/17/25 22:36 B-Type Natriuretic Peptide 2042.35 pg/mL (0-100) Total Bilirubin 0.3 mg/dL (0.2-1.0) Aspartate Amino Transf (AST/SGOT) 9 U/L (13-40) Alanine Aminotransferase (ALT/SGPT) 11 U/L (7-40) Alkaline Phosphatase 74 U/L (46-116) Total Protein 6.9 g/dL (5.7-8.2) Albumin 4.1 g/dL (3.2-4.8) White Blood Count 5.3 10^3/uL (4.4-10.8) Red Blood Count 3.20 10^6/uL (4.5-5.90) Hemoglobin 10.1 g/dL (13.5-17.5) Hematocrit 29.4 % (41.0-53.0) Mean Corpuscular Volume 91.9 fL (80.0-100.0) Mean Corpuscular Hemoglobin 31.6 pg (28.0-32.0) Mean Corpuscular Hemoglobin Concent 34.4 g/dL (32.0-36.0) Red Cell Distribution Width 14.2 % (11.8-14.3) Platelet Count 294 10^3/uL (140-450) Mean Platelet Volume 6.8 fL (6.9-10.8) Neutrophils (%) (Auto) 80.0 % (37.0-80.0) Lymphocytes (%) (Auto) 7.7 % (10.0-50.0) Monocytes (%) (Auto) 5.0 % (0.0-12.0) Eosinophils (%) (Auto) 6.2 % (0.0-7.0) Basophils (%) (Auto) 1.1 % (0.0-2.0) Neutrophils # (Auto) 4.2 10 ^3/uL (1.6-8.6) Lymphocytes # (Auto) 0.4 10 ^3/uL (0.4-5.4) Monocytes # (Auto) 0.3 10 ^3/uL (0-1.3) Eosinophils # (Auto) 0.3 10 ^3/uL (0-0.8) Basophils # (Auto) 0.1 10 ^3/uL (0-0.2) Nucleated Red Blood Cells 0.0 % Prothrombin Time 11.4 sec (9.3-11.8) Prothromb Time International Ratio 1.08 (0.9-1.15) Activated Partial Thromboplast Time 35.9 SEC (24.5-34.5) Hepatitis A IgM Antibody Negative Hepatitis B Surface Antigen Positive (Negative) Hepatitis B Core IgM Antibody Negative (Negative) Hepatitis C Antibody Negative (Negative) Test 02/18/25 07:55 Sodium Level 139 mmol/L (136-145) Potassium Level 5.4 mmol/L (3.5-5.1) Chloride Level 100 mmol/L (98-107) Carbon Dioxide Level 31 mmol/L (20-31) Anion Gap 8 (5-15) Blood Urea Nitrogen 41 mg/dL (9-23) Creatinine 8.76 mg/dL (0.700-1.30) Glomerular Filtration Rate Calc 7 mL/min (>90) BUN/Creatinine Ratio 4.7 (10.0-20.0) Serum Glucose 98 mg/dL (74-106) Calcium Level 11.0 mg/dL (8.7-10.4) Microbiology Date/Time Source Procedure Growth Status 02/12/25 11:47 Hand Gram Stain - Final Complete 02/12/25 11:47 Hand Wound Culture - Final Complete Attention: Limited Vitals Vital Signs Date Time Temp Pulse Resp B/P (MAP) Pulse Ox O2 Delivery O2 Flow Rate FiO2 02/18/25 15:21 77 19 175/110 02/18/25 08:00 Nasal Cannula* 4 97.0 Bi-Pap+ 97.0 02/18/25 07:04 97 02/18/25 05:00 97.9 97.9 Current medications Current Medications Medications Dose Ordered Sig/Harsh Route Start Time Stop Time Status Last Admin Dose Admin Sodium Chloride 10 ml Q8HR IV 02/12/25 14:00 02/18/25 14:00 10 ML Acetaminophen/ Hydrocodone Bitart 1 tab Q4HP PRN PO 02/12/25 07:30 02/18/25 15:20 1 TAB Ondansetron HCl 4 mg Q4HP PRN IV 02/12/25 07:30 02/12/25 22:24 4 MG Docusate Sodium 100 mg BIDPRN PRN PO 02/12/25 07:30 02/18/25 02:22 100 MG Acetaminophen 650 mg Q6HP PRN PO 02/12/25 07:30 02/13/25 16:22 650 MG Calcium Acetate 1,334 mg TIDWMEALS PO 02/12/25 12:00 02/18/25 12:24 1,334 MG Nifedipine 60 mg DAILY PO 02/12/25 10:00 02/18/25 08:22 60 MG Hydroxyzine Pamoate 25 mg BID PRN PO 02/12/25 09:30 Apixaban 5 mg BID PO 02/12/25 22:00 02/18/25 08:22 5 MG Hydralazine HCl 50 mg TID PO 02/12/25 14:00 02/18/25 06:01 50 MG Clonidine HCl 0.1 mg Q8HP PRN PO 02/12/25 14:45 02/18/25 06:02 0.1 MG Hydralazine HCl 10 mg Q6HP PRN IV 02/13/25 19:30 02/18/25 00:32 10 MG Alprazolam 1 mg DAILY PO 02/16/25 10:00 02/18/25 08:22 1 MG Pantoprazole Sodium 40 mg DAILY PO 02/16/25 10:00 02/18/25 08:22 40 MG Morphine Sulfate 2 mg Q4HPRN PRN IV 02/16/25 17:30 02/18/25 13:11 2 MG Treatment plan discussed: With staff Type: Voluntary PSYCHIATRY CONSULTATION FOLLOW-UP NOTE SUBJECTIVE: Per primary team , pt on dialysis. He has been band from local dialysis centers so was going to [place] 3 hours for dialysis. He stopped getting dialysis, was altered, admitted. Prior to all this, pt was staying with a relative who is soon to be evicted. Upon learning about discharge, pt says he is suicidal and will kill himself if discharged. He reported no SI prior. Spoke to pt who says he is at [facility]. He is able to identify himself, gives correct date. Says he is in the hospital for emergency dialysis, missed a few days. Before presenting, pt had been staying with his cousin, but cousin will be evicted. Pt says he did make a comment about suicide because he is frustrated and angry with the world. He is frustrated with dialysis, it is a lot. Says he wants to live. He is not currently endorsing SI. He does note he has not been doing well. He had few bad episodes, 3 fentanyl overdoses in a month. He is sent to environments where others are using drugs, so he ends up using. He wants to stop. He wants more help, but help has been inadequate. Pt also c/o anxiety, was encouraged to continue Zoloft. Pt denies access to firearms. He is not reporting significant mood symptoms, no psychotic symptoms. Pt has [facility] insurance, does not have Medicare but may qualify. OBJECTIVE: MENTAL STATUS EXAM The patient is a middle-aged male who appears stated age. He is alert, calm, and cooperative during the interview. He is oriented to person, place, and date. Eye contact is maintained. Psychomotor activity is within normal limits. Speech is spontaneous, fluent, and normal in rate and volume. Thought process is linear and goal-directed. Thought content is notable for situational frustration and distress related to housing instability and medical limitations, but there is no evidence of delusions, hallucinations, or suicidal or homicidal ideation at this time. He denies perceptual disturbances and shows no signs of disorganization. Mood is described as frustrated, with affect congruent, reactive, and of full range. Insight is fair; the patient is able to reflect on the sources of his distress, including social and environmental contributors to recent substance use. Judgment is limited, given his continued exposure to high-risk environments, but he demonstrates motivation to seek help and improve his situation. There are no signs of acute psychosis or cognitive impairment. ASSESSMENT: This is a medically complex male patient with a history of end-stage renal d isease on dialysis, recent fentanyl overdoses, and housing instability, currently admitted following a lapse in dialysis care. He initially reported suicidal ideation in reaction to learning about discharge planning and his housing crisis, but during interview, he clarified that his statements were driven by frustration and a sense of helplessness rather than a genuine desire to end his life. He currently denies suicidal ideation, intent, or plan, and expresses a desire to live. The patient is alert, oriented, and able to engage meaningfully in the interview. He demonstrates insight into the stressors contributing to his distress, including his difficulty accessing consistent dialysis, his substance use environment, and his lack of stable housing. Although he has had recent overdoses, he states motivation to stop using fentanyl and acknowledges that current supports have been insufficient. He reports ongoing anxiety but is not presently experiencing acute mood or psychotic symptoms. He denies access to firearms and contracts for safety. At this time, the patient does not meet criteria for a 5150 hold. He is not an imminent danger to self or others, nor is he gravely disabled due to a primary psychiatric condition. His distress is situational and tied to his medical, social, and substance use challenges. He is currently considered to be at low acute risk of suicide, though he remains at elevated chronic risk, particularly in the context of continued fentanyl exposure and lack of structured support. RECOMMENDATIONS: 1.No 5150 hold indicated. Patient does not require inpatient psychiatric admission at this time. 2.Patient is currently at low acute risk of suicide, with no active SI, plan, or intent. 3.Provide patient with a Narcan kit and education on overdose prevention. 4.Refer to hospital case management for assistance with: ---Determining eligibility and enrollment for Medicare ---Housing support resources (e.g., shelters, medical respite, social and political studies professor) ---Substance use treatment referrals, including outpatient MAT programs and harm reduction resources 5.Encourage continued use of Zoloft for anxiety and emotional regulation. 6.Provide psychosocial support, and consider outpatient mental health follow-up 7.Discuss the elevated suicide risk associated with substance use and intoxication, especially with opioids and in medically compromised individuals. Assessment/Diagnosis/Plan Reviewed: Labs, Medications, Previous Orders LEXIS BUTLER MD February 18, 2025 16:30
[2025-02-19] VITALS (13 sets, daily range): BP systolic 155–184; BP diastolic 80–104; PULSE 61–95; RESP 16–63; TEMP 97.7–98; O2SAT 93–99
[2025-02-19] MEDS: ALPRAZolam 0.25 MG TAB PO ONE (00:28)
--- NOTE | 2025-02-19 10:21 | DVHPN2 ---
Progress Note Date Seen: February 19, 2025 Medical Necessity Reason Pt with a Central, PICC or Fol: No Subjective Patient reports: Feels better Review of Systems: Deferred Objective vital signs Vital Sign Date Time Temp Pulse Resp B/P (MAP) Pulse Ox O2 Delivery O2 Flow Rate FiO2 02/19/25 10:08 180/97 02/19/25 09:47 94 Room Air* 0 21 02/19/25 09:30 97.7 61 18 97.7 Total Intake and Output 02/18/25 02/18/25 02/19/25 15:00 23:00 07:00 Intake Total 630 ml Output Total 250 ml Balance 380 ml medications Current Medications Medications Dose Ordered Sig/Harsh Route Start Time Stop Time Status Last Admin Dose Admin Sodium Chloride 10 ml Q8HR IV 02/12/25 14:00 02/19/25 05:36 10 ML Acetaminophen/ Hydrocodone Bitart 1 tab Q4HP PRN PO 02/12/25 07:30 02/18/25 15:20 1 TAB Ondansetron HCl 4 mg Q4HP PRN IV 02/12/25 07:30 02/12/25 22:24 4 MG Docusate Sodium 100 mg BIDPRN PRN PO 02/12/25 07:30 02/18/25 02:22 100 MG Acetaminophen 650 mg Q6HP PRN PO 02/12/25 07:30 02/13/25 16:22 650 MG Calcium Acetate 1,334 mg TIDWMEALS PO 02/12/25 12:00 02/19/25 10:08 1,334 MG Nifedipine 60 mg DAILY PO 02/12/25 10:00 02/19/25 10:08 60 MG Apixaban 5 mg BID PO 02/12/25 22:00 02/18/25 08:22 5 MG Hydralazine HCl 50 mg TID PO 02/12/25 14:00 02/19/25 05:36 50 MG Clonidine HCl 0.1 mg Q8HP PRN PO 02/12/25 14:45 02/18/25 23:12 0.1 MG Hydralazine HCl 10 mg Q6HP PRN IV 02/13/25 19:30 02/19/25 01:16 10 MG Pantoprazole Sodium 40 mg DAILY PO 02/16/25 10:00 02/19/25 10:08 40 MG Morphine Sulfate 2 mg Q4HPRN PRN IV 02/16/25 17:30 02/19/25 06:36 2 MG Alprazolam 0.25 mg HS PO 02/19/25 22:00 Examination: GENERAL:Normal, CVS:Normal laboratory and microbiology Laboratory Tests 02/18/25 07:55 02/16/25 11:48 Test 02/18/25 07:55 Range/Units Serum Glucose 98 74-106 mg/dL Microbiology Date/Time Source Procedure Growth Status 02/12/25 11:47 Hand Gram Stain - Final Complete 02/12/25 11:47 Hand Wound Culture - Final Complete Problem List/Assessment/Plan Problem List/Assessment/Plan End-stage renal disease on hemodialysis Hyperkalemia Polysubstance abuse Hypertension Hd on friday if remains hospitalized Renal diet Continue blood pressure medications SW to arrange outpatient dialysis, he reported he would not return to [facility], Reports he doesnt want to go to [place] he is currently requesting [facility] Plan discussed with: Patient Dietary Evaluation Review Recommendations by RD: Protein Supplementation Comments: 1) Initiate Nepro bid. Encourage optimal PO intake 2) Collect renal panel including phosphorus lab 3) Follow-up with nephrology and cardiology 4) Follow-up with social media assistant regarding polysubstance abuse 5) Continue to monitor I&O, labs, and skin integrity Expected Outcomes/Goals: 1) appetite and labs to improve 2) wound to improve 3) f/u in 3-5 days YULI QUINONES MD February 19, 2025 10:21
--- NOTE | 2025-02-19 10:48 | DVHPN2 ---
Reviewed: Care Plan, H&P, Labs, Medications, Previous Orders, Radiology Changes from previous H/P or p: No Changes General: Per HPI Eyes: No Pain, No Vision change, No Conjunctivae inflammation, No Eyelid inflammation, No Other, No Redness ENT: No Ear pain, No Ear discharge, No Nose pain, No Nose discharge, No Nose congestion, No Mouth pain, No Mouth swelling, No Throat pain, No Throat swelling, No Other Cardiovascular: No Chest Pain, No Palpitations, No Orthopnea, No Paroxysmal Noc. Dyspnea, No Edema, No Lt Headedness, No Other Respiratory: No Cough, No Dry; Shortness of breath, SOB with excertion; No Wheezing, No Hemoptysis, No Pleuritic Pain, No Sputum, No Other Gastrointestinal: No Nausea, No Vomiting, No Abdominal Pain, No Diarrhea, No Constipation, No Melena, No Hematochezia, No Other Genitourinary: No Dysuria, No Frequency, No Incontinence, No Hematuria, No Retention, No Other Skin: No Rash, No Lesions, No Jaundice, No Bruising, No Other Objective Vitals Vital Signs Date Time Temp Pulse Resp B/P (MAP) Pulse Ox O2 Delivery O2 Flow Rate FiO2 02/19/25 10:08 180/97 02/19/25 09:47 94 Room Air* 0 21 02/19/25 09:30 97.7 61 18 97.7 Intake/Output Intake and Output 02/19/25 07:00 Intake Total 630 ml Output Total 250 ml Balance 380 ml Intake Oral 630 ml Output Urine Total 250 ml General Appearance: Alert, Cooperative, No acute distress HEENT: Atraumatic, PERRLA, EOMI, Mucous membr. moist/pink Neck: Supple Lungs: Clear to auscultation, Normal air movement Cardiovascular: Regular rate, Normal S1, Normal S2, No murmurs, Gallops, Rubs Abdomen: Normal bowel sounds, Soft, No tenderness Extremities: Normal pulses Neuro: Cranial nerves 3-12 NL Psych/Mental Status: Mental status NL Medications Current Medications Medications Dose Ordered Sig/Harsh Route Start Time Stop Time Status Last Admin Dose Admin Sodium Chloride 10 ml Q8HR IV 02/12/25 14:00 02/19/25 05:36 10 ML Acetaminophen/ Hydrocodone Bitart 1 tab Q4HP PRN PO 02/12/25 07:30 02/18/25 15:20 1 TAB Ondansetron HCl 4 mg Q4HP PRN IV 02/12/25 07:30 02/12/25 22:24 4 MG Docusate Sodium 100 mg BIDPRN PRN PO 02/12/25 07:30 02/18/25 02:22 100 MG Acetaminophen 650 mg Q6HP PRN PO 02/12/25 07:30 02/13/25 16:22 650 MG Calcium Acetate 1,334 mg TIDWMEALS PO 02/12/25 12:00 02/19/25 10:08 1,334 MG Nifedipine 60 mg DAILY PO 02/12/25 10:00 02/19/25 10:08 60 MG Apixaban 5 mg BID PO 02/12/25 22:00 02/18/25 08:22 5 MG Hydralazine HCl 50 mg TID PO 02/12/25 14:00 02/19/25 05:36 50 MG Clonidine HCl 0.1 mg Q8HP PRN PO 02/12/25 14:45 02/18/25 23:12 0.1 MG Hydralazine HCl 10 mg Q6HP PRN IV 02/13/25 19:30 02/19/25 01:16 10 MG Pantoprazole Sodium 40 mg DAILY PO 02/16/25 10:00 02/19/25 10:08 40 MG Morphine Sulfate 2 mg Q4HPRN PRN IV 02/16/25 17:30 02/19/25 06:36 2 MG Alprazolam 0.25 mg HS PO 02/19/25 22:00 Laboratory Results Laboratory Tests 02/16/25 11:48 02/18/25 07:55 Microbiology Microbiology Date/Time Source Procedure Growth Status 02/12/25 11:47 Hand Gram Stain - Final Complete 02/12/25 11:47 Hand Wound Culture - Final Complete Labs and/or images reviewed: Labs reviewed by me, Image(s) reviewed by me Assessment/Plan Assessment/Plan End-stage renal disease on hemodialysis, missed dialysis Medical noncompliant Fluid overload, Cardiomegaly, Pulmonary edema, Hypertension, Polysubstance abuse, Left arm wound, look like ? skin cancer. Suicidal ideation Continuing current management. Continuing with hemodialysis. Advised to stop using drugs more than 15 minutes Continuing hypertensive medication Appreciate nephrology input Advice patient to follow up with Truck Driver Salesperson for biopsy of the lesion on his left arm to rule out skin cancer. Per patient he wants to kill himself after he heard that we plan to discharge him home. He had a tele-psychiatrist evaluation when he first come in, at that time, the psychiatrist states that he was not medically stable to evaluate for his suicidal thought, I will reconsult telepsychiatrist today. 24 hours sitter. Will order hepatitis panel. DW psychiatrist, patient is low risk of sucidal ideation. Can be discharge when medically stable and clear by boiler service technician. K still remained high, Continue HD per boiler service technician DEVI CM, patient should continue with HD at [place] after discharge, per insurance arrangement. 02/19/2025 pt to receive HD in-house pending placement Plan discussed with: Patient Date of Service: February 19, 2025 Billing Provider: LOUISE JOSEPH DO Common Visit Codes: [id number] INP/OBS CARE(HIGH) LOUISE JOSEPH DO February 19, 2025 10:48
[2025-02-19 11:54] LABS: Chloride 99 mmol/L (98-107); Sodium 137 mmol/L (136-145)
[2025-02-19 11:55] LABS: Anion Gap 10 (5-15); Carbon Dioxide 28 mmol/L (20-31)
[2025-02-19 12:00] LABS: BUN/Creatinine Ratio 4.4 (10.0-20.0)
[2025-02-19 12:01] LABS: Blood Urea Nitrogen 33 mg/dL (9-23); Calcium 10.5 mg/dL (8.7-10.4); Glucose 120 mg/dL (74-106); Potassium 5.2 mmol/L (3.5-5.1)
--- NOTE | 2025-02-19 15:51 | DVH ---
CHEST RADIOGRAPH Indication: chest pain Technique: Single frontal view of the chest was obtained COMPARISON: XY CHEST PORTABLE on DOS: 02/12/25, XY CHEST XRAY 1 VIEW on DOS: 01/13/25 FINDINGS: Lines and Tubes: Median sternotomy. Tunneled left central venous catheter in satisfactory position. Lungs: Multifocal airspace disease. Pleura: Small left pleural effusion. No pneumothorax. Cardiomediastinal contours: Unremarkable Bones: Unremarkable IMPRESSION: Slight interval improvement in aeration.
[2025-02-19] MEDS: ALPRAZolam 0.25 MG TAB PO SCH (22:26)
[2025-02-20] VITALS (9 sets, daily range): BP systolic 140–169; BP diastolic 73–93; PULSE 58–84; RESP 18–20; TEMP 96.6–98.7; O2SAT 95–100
--- NOTE | 2025-02-20 09:43 | DVHPN2 ---
Progress Note Date Seen: Feb 20, 2025 Medical Necessity Reason Pt with a Central, PICC or Fol: No Objective vital signs Vital Sign Date Time Temp Pulse Resp B/P (MAP) Pulse Ox O2 Delivery O2 Flow Rate FiO2 02/20/25 09:32 58 20 158/92 02/20/25 08:10 96 Nasal Cannula 2.0 02/20/25 08:10 28 02/20/25 05:00 97.8 97.8 Total Intake and Output 02/19/25 02/19/25 02/20/25 15:00 23:00 07:00 Intake Total 1015 ml Balance 1015 ml medications Current Medications Medications Dose Ordered Sig/Harsh Route Start Time Stop Time Status Last Admin Dose Admin Sodium Chloride 10 ml Q8HR IV 02/12/25 14:00 02/20/25 06:43 10 ML Acetaminophen/ Hydrocodone Bitart 1 tab Q4HP PRN PO 02/12/25 07:30 02/18/25 15:20 1 TAB Ondansetron HCl 4 mg Q4HP PRN IV 02/12/25 07:30 02/12/25 22:24 4 MG Docusate Sodium 100 mg BIDPRN PRN PO 02/12/25 07:30 02/18/25 02:22 100 MG Acetaminophen 650 mg Q6HP PRN PO 02/12/25 07:30 02/13/25 16:22 650 MG Calcium Acetate 1,334 mg TIDWMEALS PO 02/12/25 12:00 02/20/25 09:32 1,334 MG Nifedipine 60 mg DAILY PO 02/12/25 10:00 02/20/25 09:32 60 MG Apixaban 5 mg BID PO 02/12/25 22:00 02/18/25 08:22 5 MG Hydralazine HCl 50 mg TID PO 02/12/25 14:00 02/19/25 22:18 50 MG Clonidine HCl 0.1 mg Q8HP PRN PO 02/12/25 14:45 02/19/25 12:43 0.1 MG Hydralazine HCl 10 mg Q6HP PRN IV 02/13/25 19:30 02/20/25 06:44 10 MG Pantoprazole Sodium 40 mg DAILY PO 02/16/25 10:00 02/20/25 09:32 40 MG Morphine Sulfate 2 mg Q4HPRN PRN IV 02/16/25 17:30 02/20/25 06:45 2 MG Alprazolam 0.25 mg HS PO 02/19/25 22:00 02/19/25 22:26 0.25 MG Examination: GENERAL:Normal, CVS:Normal, ABDOMEN:Normal, SKIN:Normal laboratory and microbiology Laboratory Tests 02/19/25 11:22 02/16/25 11:48 Test 02/19/25 11:22 Range/Units Serum Glucose 120 H 74-106 mg/dL Microbiology Date/Time Source Procedure Growth Status 02/12/25 11:47 Hand Gram Stain - Final Complete 02/12/25 11:47 Hand Wound Culture - Final Complete Problem List/Assessment/Plan Problem List/Assessment/Plan End-stage renal disease on hemodialysis Hyperkalemia Polysubstance abuse Hypertension Hd on friday if remains hospitalized Renal diet Continue blood pressure medications SW to arrange outpatient dialysis Plan discussed with: Patient Dietary Evaluation Review Recommendations by RD: Protein Supplementation Comments: 1) Initiate Nepro bid. Encourage optimal PO intake 2) Collect renal panel including phosphorus lab 3) Follow-up with nephrology and cardiology 4) Follow-up with social worker psychiatric regarding polysubstance abuse 5) Continue to monitor I&O, labs, and skin integrity Expected Outcomes/Goals: 1) appetite and labs to improve 2) wound to improve 3) f/u in 3-5 days YULI QUINONES MD Feb 20, 2025 09:43
--- NOTE | 2025-02-20 15:40 | DVHPN2 ---
Reviewed: Care Plan, H&P, Labs, Medications, Previous Orders, Radiology Changes from previous H/P or p: No Changes General: Per HPI Eyes: No Pain, No Vision change, No Conjunctivae inflammation, No Eyelid inflammation, No Other, No Redness ENT: No Ear pain, No Ear discharge, No Nose pain, No Nose discharge, No Nose congestion, No Mouth pain, No Mouth swelling, No Throat pain, No Throat swelling, No Other Cardiovascular: No Chest Pain, No Palpitations, No Orthopnea, No Paroxysmal Noc. Dyspnea, No Edema, No Lt Headedness, No Other Respiratory: No Cough, No Dry; Shortness of breath, SOB with excertion; No Wheezing, No Hemoptysis, No Pleuritic Pain, No Sputum, No Other Gastrointestinal: No Nausea, No Vomiting, No Abdominal Pain, No Diarrhea, No Constipation, No Melena, No Hematochezia, No Other Genitourinary: No Dysuria, No Frequency, No Incontinence, No Hematuria, No Retention, No Other Skin: No Rash, No Lesions, No Jaundice, No Bruising, No Other Objective Vitals Vital Signs Date Time Temp Pulse Resp B/P (MAP) Pulse Ox O2 Delivery O2 Flow Rate FiO2 02/20/25 14:29 175/112 02/20/25 13:00 97.6 58 20 100 97.6 02/20/25 08:10 Nasal Cannula 2.0 02/20/25 08:10 28 Intake/Output Intake and Output 02/20/25 07:00 Intake Total 1015 ml Balance 1015 ml Intake Oral 1015 ml General Appearance: Alert, Cooperative, No acute distress HEENT: Atraumatic, PERRLA, EOMI, Mucous membr. moist/pink Neck: Supple Lungs: Clear to auscultation, Normal air movement Cardiovascular: Regular rate, Normal S1, Normal S2, No murmurs, Gallops, Rubs Abdomen: Normal bowel sounds, Soft, No tenderness Extremities: Normal pulses Neuro: Cranial nerves 3-12 NL Psych/Mental Status: Mental status NL Medications Current Medications Medications Dose Ordered Sig/Harsh Route Start Time Stop Time Status Last Admin Dose Admin Sodium Chloride 10 ml Q8HR IV 02/12/25 14:00 02/20/25 14:29 10 ML Acetaminophen/ Hydrocodone Bitart 1 tab Q4HP PRN PO 02/12/25 07:30 02/18/25 15:20 1 TAB Ondansetron HCl 4 mg Q4HP PRN IV 02/12/25 07:30 02/20/25 11:07 4 MG Docusate Sodium 100 mg BIDPRN PRN PO 02/12/25 07:30 02/18/25 02:22 100 MG Acetaminophen 650 mg Q6HP PRN PO 02/12/25 07:30 02/13/25 16:22 650 MG Calcium Acetate 1,334 mg TIDWMEALS PO 02/12/25 12:00 02/20/25 12:29 1,334 MG Nifedipine 60 mg DAILY PO 02/12/25 10:00 02/20/25 09:32 60 MG Apixaban 5 mg BID PO 02/12/25 22:00 02/18/25 08:22 5 MG Hydralazine HCl 50 mg TID PO 02/12/25 14:00 02/20/25 14:29 50 MG Clonidine HCl 0.1 mg Q8HP PRN PO 02/12/25 14:45 02/19/25 12:43 0.1 MG Hydralazine HCl 10 mg Q6HP PRN IV 02/13/25 19:30 02/20/25 12:30 10 MG Pantoprazole Sodium 40 mg DAILY PO 02/16/25 10:00 02/20/25 09:32 40 MG Morphine Sulfate 2 mg Q4HPRN PRN IV 02/16/25 17:30 02/20/25 11:08 2 MG Alprazolam 0.25 mg HS PO 02/19/25 22:00 02/19/25 22:26 0.25 MG Laboratory Results Laboratory Tests 02/16/25 11:48 02/19/25 11:22 Microbiology Microbiology Date/Time Source Procedure Growth Status 02/12/25 11:47 Hand Gram Stain - Final Complete 02/12/25 11:47 Hand Wound Culture - Final Complete Labs and/or images reviewed: Labs reviewed by me, Image(s) reviewed by me Assessment/Plan Assessment/Plan End-stage renal disease on hemodialysis, missed dialysis Medical noncompliant Fluid overload, Cardiomegaly, Pulmonary edema, Hypertension, Polysubstance abuse, Left arm wound, look like ? skin cancer. Suicidal ideation Continuing current management. Continuing with hemodialysis. Advised to stop using drugs more than 15 minutes Continuing hypertensive medication Appreciate nephrology input Advice patient to follow up with [employer] Officer for biopsy of the lesion on his left arm to rule out skin cancer. Per patient he wants to kill himself after he heard that we plan to discharge him home. He had a tele-psychiatrist evaluation when he first come in, at that time, the psychiatrist states that he was not medically stable to evaluate for his suicidal thought, I will reconsult telepsychiatrist today. 24 hours sitter. Will order hepatitis panel. [facility] psychiatrist, patient is low risk of sucidal ideation. Can be discharge when medically stable and clear by air bag curer. K still remained high, Continue HD per air bag curer DEVI CM, patient should continue with HD at [place] after discharge, per insurance arrangement. 02/19/2025 pt to receive HD in-house pending placement 02/20/2025 pending placement discussed with pt today will discuss with social services director pt will likely need SNF will evaluate for PT/OT Plan discussed with: Patient My Orders Orders - LOUISE JOSEPH DO Procedure Category Date Status Time Ct Ab Pel Wo Con-No CT 02/20/25 Taken Oral Or Iv 12:20 Date of Service: Feb 20, 2025 Billing Provider: LOUISE JOSEPH DO Common Visit Codes: [id number] INP/OBS CARE(HIGH) LOUISE JOSEPH DO Feb 20, 2025 15:40
--- NOTE | 2025-02-20 15:41 | DVH ---
Exam: CT CT AB PEL WO CON-NO ORAL OR IV History: hernia Comparison Study: None Technique: Multidetector spiral CT of the abdomen was performed from lung bases to pubic symphysis. Imaging was performed without IV contrast. Axial, coronal and sagittal multiplanar reformats were ob tained from the axial data set by the technologist. Radiation Dose : 1. Abdomen/Pelvis: CTDIvol 15.17 mGy, DLP 885.79 mGy*cm. Findings: Evaluation of solid organs is limited due to lack of intravenous contrast use. Lung Bases: Small left pleural effusion. Left lower lobe consolidation. Along the right posterior lo wer lung pleura there is thickening/nodularity with 2 round calcified foci each measuring up to about 1.3 cm. There is mild underlying pleural thickening and calcification mild curvilinear densities ext ending towards the hilum and mild regional bronchiectasis. Mitral annular calcification. Mild cardio megaly. Liver: The liver is normal in size. No focal lesions. Gallbladder and Biliary Tree: Cholelithiasis without secondary signs of cholecystitis. The common mina e duct does not appear dilated. Spleen: Unremarkable Pancreas: The pancreatic duct is dilated up to 6 mm. Adrenal Glands: Unremarkable Kidneys: Bilateral renal atrophy. Numerous bilateral renal cysts. Additional round foci in the kidne ys which attenuates higher than simple fluid. Punctate nonobstructing calculus at the left inferior renal pole. No hydronephrosis. Bladder: Grossly unremarkable for degree of distention. Bowel: A couple of small hyperdense foci in the stomach are likely related to ingested medications. N o significant small bowel dilation. Moderate to large amount of stool throughout the colon. The sigmo id colon is mildly distended with gas. The appendix is completely contained within the right inguinal hernia. The appendix is normal in diameter (about 5 mm) and has interspersed intraluminal gas; howev er, there is mild wall thickening. Ascites: Absent Lymphadenopathy: No mesenteric, retroperitoneal or periportal lymphadenopathy. Abdominal Wall and Mesentery: Small right inguinal hernia which contains a portion of the cecum and t he entire appendix. Vasculature: Heavy aorto bi-iliac atherosclerotic calcification. Extensive atherosclerosis of abdomin al/pelvic vessels. There is ectasia of the bilateral common iliac arteries and also of the left exte rnal iliac and common femoral arteries. There is a vascular stent near the left common femoral vein t hat extends superficially towards the subcutaneous left inguinal region. Pelvic Organs: Prostate is nonenlarged. Calcification in the vas deferens and in the seminal vesicles . Musculoskeletal: Mild lumbar levocurvature. Moderate degenerative disc change at L3-L4. Advanced deg enerative disc change at L4-L5. Several scattered Schmorl's nodes. IMPRESSION: 1. Right inguinal hernia containing a portion of the cecum and the entire appendix. No evidence of b owel obstruction. 2. Mild wall thickening in the appendix although the appendix is normal in diameter and has intersper sed intraluminal gas. This is favored to be reactive and appendicitis is considered unlikely. Clini casandra correlation recommended. 3. Cholelithiasis without evidence of cholecystitis. 4. Pancreatic ductal dilatation of uncertain cause. An obstructing lesion can not be entirely exclude d; however, there is no evidence of common bile duct dilation. Recommend correlation with previous im aging if available and may consider MRCP. 5. Moderate to large stool throughout the colon. 6. Atrophic kidneys with numerous renal cysts. Additional lesions that attenuate higher than simple fluid. Recommend correlation with renal ultrasound. 7. Nonobstructing punctate left renal calculi. No hydronephrosis. 8. Left lower lobe consolidation is concerning for pneumonia. Small left pleural effusion. 9. Subpleural density at the right lung base is favored to represent round atelectasis with dystrophi c calcification. 10. Extensive atherosclerosis. Ectasia of the common iliac arteries which also extends to the left co mmon femoral artery. Radiation optimization: All CT scans at this facility use at least one of these dose optimization tello hniques: automated exposure control mA and/or kV adjustment per patient size (includes targeted exam s where dose is matched to clinical indication) or iterative reconstruction.
[2025-02-20] MEDS: LACTULOSE 20Gm/30ML SOLN PO PRN (18:23)
[2025-02-21] VITALS (8 sets, daily range): BP systolic 148–183; BP diastolic 82–108; PULSE 58–84; RESP 16–18; TEMP 97.5–98.5; O2SAT 94–99
[2025-02-21 07:51] LABS: Anion Gap 10 (5-15); Carbon Dioxide 27 mmol/L (20-31); Chloride 100 mmol/L (98-107); Sodium 137 mmol/L (136-145)
[2025-02-21 07:54] LABS: Calcium 11.6 mg/dL (8.7-10.4)
[2025-02-21 07:56] LABS: Potassium 5.7 mmol/L (3.5-5.1)
[2025-02-21 07:57] LABS: BUN/Creatinine Ratio 4.9 (10.0-20.0); Blood Urea Nitrogen 53 mg/dL (9-23); Glucose 120 mg/dL (74-106)
[2025-02-21] MEDS: cefTRIAXone 1GM/50ML D5W 50 ML IV SCH (08:26)
[2025-02-21] MEDS: AZITHROMYCIN 500MG/ 250ML 250 ML IV SCH (09:35)
[2025-02-21] MEDS: SODIUM ZIRCONIUM CYCL 10 GM PAK PO ONE (09:45)
--- NOTE | 2025-02-21 09:45 | DVHPN2 ---
Progress Note Date Seen: Feb 21, 2025 Medical Necessity Reason Pt with a Central, PICC or Fol: No Subjective Patient reports: No new complaints Other Systems: Patient seen and examined by myself today in follow-up Patient examined hemodialysis, blood pressure stable Objective vital signs Vital Sign Date Time Temp Pulse Resp B/P (MAP) Pulse Ox O2 Delivery O2 Flow Rate FiO2 02/21/25 09:12 97.5 78 16 157/82 (107) 98 97.5 02/20/25 20:00 Nasal Cannula* 4 36 medications Current Medications Medications Dose Ordered Sig/Harsh Route Start Time Stop Time Status Last Admin Dose Admin Sodium Chloride 10 ml Q8HR IV 02/12/25 14:00 02/21/25 05:43 10 ML Acetaminophen/ Hydrocodone Bitart 1 tab Q4HP PRN PO 02/12/25 07:30 02/20/25 16:37 1 TAB Ondansetron HCl 4 mg Q4HP PRN IV 02/12/25 07:30 02/21/25 08:26 4 MG Docusate Sodium 100 mg BIDPRN PRN PO 02/12/25 07:30 02/21/25 09:35 100 MG Acetaminophen 650 mg Q6HP PRN PO 02/12/25 07:30 02/13/25 16:22 650 MG Calcium Acetate 1,334 mg TIDWMEALS PO 02/12/25 12:00 02/21/25 08:26 1,334 MG Nifedipine 60 mg DAILY PO 02/12/25 10:00 02/20/25 09:32 60 MG Apixaban 5 mg BID PO 02/12/25 22:00 02/21/25 09:35 5 MG Hydralazine HCl 50 mg TID PO 02/12/25 14:00 02/21/25 05:44 50 MG Clonidine HCl 0.1 mg Q8HP PRN PO 02/12/25 14:45 02/21/25 01:00 0.1 MG Hydralazine HCl 10 mg Q6HP PRN IV 02/13/25 19:30 02/21/25 04:32 10 MG Pantoprazole Sodium 40 mg DAILY PO 02/16/25 10:00 02/21/25 09:35 40 MG Morphine Sulfate 2 mg Q4HPRN PRN IV 02/16/25 17:30 6/2/25 08:27 2 MG Alprazolam 0.25 mg HS PO 02/19/25 22:00 02/20/25 22:09 0.25 MG Azithromycin 250 ml @ 125 mls/hr DAILY IV 02/21/25 10:00 02/21/25 09:35 125 MLS/HR Ceftriaxone Sodium 50 ml @ 100 mls/hr DAILY@09 IV 02/21/25 09:00 02/21/25 08:26 100 MLS/HR Lactulose 30 ml BIDPRN PRN PO 02/20/25 17:15 Examination: LUNGS:Normal, CVS:Normal, MSK:Abnormal laboratory and microbiology Laboratory Tests 02/21/25 06:37 02/16/25 11:48 Test 02/21/25 06:37 Range/Units Serum Glucose 120 H 74-106 mg/dL Microbiology Date/Time Source Procedure Growth Status 02/12/25 11:47 Hand Gram Stain - Final Complete 02/12/25 11:47 Hand Wound Culture - Final Complete Problem List/Assessment/Plan Problem List/Assessment/Plan End-stage renal disease on hemodialysis Hyperkalemia secondary to dietary indiscretion Polysubstance abuse Hypertension Chronic diastolic Congestive heart failure Anemia of chronic kidney disease Recommendations Continue with UF 3-4 L as tolerated Epogen subQ 3 times weekly Resume home medications Blood pressure control Lokelma 10 g p.o. Renal diet We will continue to follow Plan discussed with: Patient My Orders My Orders Orders - DANIELLA GAGE MD Procedure Category Date Status Time Sodium Zirconium PHA 02/21/25 Logged Cyclosilicate 09:45 Hemodialysis Orders ORDERS 02/21/25 Transmitted 09:40 Dietary Evaluation Review Recommendations by RD: Protein Supplementation Comments: 1) Initiate Nepro bid. Encourage optimal PO intake 2) Collect renal panel including phosphorus lab 3) Follow-up with nephrology and cardiology 4) Follow-up with social organization professor regarding polysubstance abuse 5) Continue to monitor I&O, labs, and skin integrity Expected Outcomes/Goals: 1) appetite and labs to improve 2) wound to improve 3) f/u in 3-5 days DANIELLA GAGE MD Feb 21, 2025 09:45
--- NOTE | 2025-02-21 11:47 | DVHPN2 ---
Subjective He says he is feeling better He is still on 4 L nasal cannula He is scheduled for dialysis today Potassium is 5.7 Reviewed: Care Plan, H&P, Labs, Medications, Previous Orders, Radiology Changes from previous H/P or p: Changes General: Per HPI Eyes: No Pain, No Vision change, No Conjunctivae inflammation, No Eyelid inflammation, No Other, No Redness ENT: No Ear pain, No Ear discharge, No Nose pain, No Nose discharge, No Nose congestion, No Mouth pain, No Mouth swelling, No Throat pain, No Throat swelling, No Other Cardiovascular: No Chest Pain, No Palpitations, No Orthopnea, No Paroxysmal Noc. Dyspnea, No Edema, No Lt Headedness, No Other Respiratory: No Cough, No Dry; Shortness of breath, SOB with excertion; No Wheezing, No Hemoptysis, No Pleuritic Pain, No Sputum, No Other Gastrointestinal: No Nausea, No Vomiting, No Abdominal Pain, No Diarrhea, No Constipation, No Melena, No Hematochezia, No Other Genitourinary: No Dysuria, No Frequency, No Incontinence, No Hematuria, No Retention, No Other Skin: No Rash, No Lesions, No Jaundice, No Bruising, No Other Objective Vitals Vital Signs Date Time Temp Pulse Resp B/P (MAP) Pulse Ox O2 Delivery O2 Flow Rate FiO2 02/21/25 09:12 97.5 78 16 157/82 (107) 98 97.5 02/21/25 08:00 Nasal Cannula* 4 36 General Appearance: Alert, Cooperative, No acute distress HEENT: Atraumatic, PERRLA, EOMI, Mucous membr. moist/pink Neck: Supple Lungs: Clear to auscultation, Normal air movement Cardiovascular: Regular rate, Normal S1, Normal S2, No murmurs, Gallops, Rubs Abdomen: Normal bowel sounds, Soft, No tenderness Extremities: Normal pulses Neuro: Cranial nerves 3-12 NL Psych/Mental Status: Mental status NL Medications Current Medications Medications Dose Ordered Sig/Harsh Route Start Time Stop Time Status Last Admin Dose Admin Sodium Chloride 10 ml Q8HR IV 02/12/25 14:00 02/21/25 05:43 10 ML Ondansetron HCl 4 mg Q4HP PRN IV 02/12/25 07:30 02/21/25 08:26 4 MG Docusate Sodium 100 mg BIDPRN PRN PO 02/12/25 07:30 02/21/25 09:35 100 MG Acetaminophen 650 mg Q6HP PRN PO 02/12/25 07:30 02/13/25 16:22 650 MG Calcium Acetate 1,334 mg TIDWMEALS PO 02/12/25 12:00 02/21/25 08:26 1,334 MG Nifedipine 60 mg DAILY PO 02/12/25 10:00 02/20/25 09:32 60 MG Apixaban 5 mg BID PO 02/12/25 22:00 02/21/25 09:35 5 MG Hydralazine HCl 50 mg TID PO 02/12/25 14:00 02/21/25 05:44 50 MG Clonidine HCl 0.1 mg Q8HP PRN PO 02/12/25 14:45 02/21/25 01:00 0.1 MG Hydralazine HCl 10 mg Q6HP PRN IV 02/13/25 19:30 02/21/25 04:32 10 MG Pantoprazole Sodium 40 mg DAILY PO 02/16/25 10:00 02/21/25 09:35 40 MG Morphine Sulfate 2 mg Q4HPRN PRN IV 02/16/25 17:30 02/21/25 08:27 2 MG Alprazolam 0.25 mg HS PO 02/19/25 22:00 02/20/25 22:09 0.25 MG Azithromycin 250 ml @ 125 mls/hr DAILY IV 02/21/25 10:00 02/21/25 09:35 125 MLS/HR Ceftriaxone Sodium 50 ml @ 100 mls/hr DAILY@09 IV 02/21/25 09:00 02/21/25 08:26 100 MLS/HR Lactulose 30 ml BIDPRN PRN PO 02/20/25 17:15 Laboratory Results Laboratory Tests 02/16/25 11:48 02/21/25 06:37 Chemistry Test 02/21/25 06:37 Calcium Level 11.6 mg/dL (8.7-10.4) H Microbiology Microbiology Date/Time Source Procedure Growth Status 02/12/25 11:47 Hand Gram Stain - Final Complete 02/12/25 11:47 Hand Wound Culture - Final Complete Assessment/Plan Assessment/Plan Acute hypoxic respiratory failure Pulmonary edema Hyperkalemia End-stage renal disease on hemodialysis Left lower lobe pneumonia Hypertension Cholelithiasis Right inguinal hernia Chronic anemia of chronic kidney disease Polysubstance abuse History of aortic valve replacement, mechanical valve, on Eliquis Plan Tapered down the oxygen as tolerated Hemodialysis to be done today ditch worker consult, 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 find him a new environment says he says he was living with the his relatives but they are getting affected so he needs a new home He just moved from [place] Continue IV antibiotics Mechanical aortic valve, patient says he can not take warfarin due to bleeding in the past, he has been on Eliquis for 7 years Discharge planning once he is off the oxygen Monitor closely Full code Advance directives discussed for 22 minutes Plan discussed with: Patient Date of Service: Feb 21, 2025 Billing Provider: CONCEPCION GRANT MD Common Visit Codes: [id number] INP/OBS CARE(HIGH) CONCEPCION GRANT MD Feb 21, 2025 11:47
[2025-02-21] MEDS: HYDROcodone-ACET 10/325MG TAB PO PRN (12:30)
[2025-02-21] MEDS: SODIUM CHL 0.9% 1000 ML BAG XX ONE (22:08)
[2025-02-22] VITALS (8 sets, daily range): BP systolic 145–188; BP diastolic 80–106; PULSE 72–85; RESP 16–20; TEMP 97.5–98.1; O2SAT 94–100
[2025-02-22 06:54] LABS: Basophils # (auto) 0.1 10 ^3/uL (0-0.2); Basophils % (auto) 2.5 % (0.0-2.0); Eosinophils # (auto) 0.4 10 ^3/uL (0-0.8); Eosinophils % (auto) 9.7 % (0.0-7.0); Hemoglobin 10.2 g/dL (13.5-17.5); Lymphocytes # (auto) 0.6 10 ^3/uL (0.4-5.4); Lymphocytes % (auto) 13.5 % (10.0-50.0); Mean Corpuscular Hemoglobin 30.6 pg (28.0-32.0); Mean Corpuscular Hgb Conc. 32.9 g/dL (32.0-36.0); Monocytes # (auto) 0.4 10 ^3/uL (0-1.3); Neutrophils # (auto) 2.9 10 ^3/uL (1.6-8.6); Neutrophils % (auto) 66.3 % (37.0-80.0); Nucleated Red Blood Cells % 0.1 %; Platelet Count (auto) 261 10^3/uL (140-450); Red Blood Cells 3.34 10^6/uL (4.5-5.90); White Blood Cell 4.4 10^3/uL (4.4-10.8)
[2025-02-22 07:05] LABS: Alanine Aminotransferase 13 U/L (7-40); Albumin 4.3 g/dL (3.2-4.8); Alkaline Phosphatase 71 U/L (46-116); Anion Gap 10 (5-15); Aspartate Aminotransferase 17 U/L (13-40); BUN/Creatinine Ratio 4.4 (10.0-20.0); Carbon Dioxide 29 mmol/L (20-31); Glucose 90 mg/dL (74-106); Magnesium 2.3 mg/dL (1.6-2.6); Potassium 5.1 mmol/L (3.5-5.1); Sodium 136 mmol/L (136-145); Total Protein 7.2 g/dL (5.7-8.2)
[2025-02-22 07:06] LABS: Bilirubin, Total 0.3 mg/dL (0.2-1.0)
[2025-02-22 07:15] LABS: Blood Urea Nitrogen 36 mg/dL (9-23); Calcium 10.6 mg/dL (8.7-10.4); Chloride 97 mmol/L (98-107)
--- NOTE | 2025-02-22 10:09 | DVHPN2 ---
Subjective Coughing up dark phlegm Reviewed: Care Plan, H&P, Labs, Medications, Previous Orders, Radiology Changes from previous H/P or p: Changes General: Per HPI Eyes: No Pain, No Vision change, No Conjunctivae inflammation, No Eyelid inflammation, No Other, No Redness ENT: No Ear pain, No Ear discharge, No Nose pain, No Nose discharge, No Nose congestion, No Mouth pain, No Mouth swelling, No Throat pain, No Throat swelling, No Other Cardiovascular: No Chest Pain, No Palpitations, No Orthopnea, No Paroxysmal Noc. Dyspnea, No Edema, No Lt Headedness, No Other Respiratory: No Cough, No Dry; Shortness of breath, SOB with excertion; No Wheezing, No Hemoptysis, No Pleuritic Pain, No Sputum, No Other Gastrointestinal: No Nausea, No Vomiting, No Abdominal Pain, No Diarrhea, No Constipation, No Melena, No Hematochezia, No Other Genitourinary: No Dysuria, No Frequency, No Incontinence, No Hematuria, No Retention, No Other Skin: No Rash, No Lesions, No Jaundice, No Bruising, No Other Objective Vitals Vital Signs Date Time Temp Pulse Resp B/P (MAP) Pulse Ox O2 Delivery O2 Flow Rate FiO2 02/22/25 09:26 97.9 75 20 188/106 (133) 100 97.9 02/22/25 08:00 Nasal Cannula* 2 28 Intake/Output Intake and Output 02/22/25 07:00 Intake Total 736 ml Balance 736 ml Intake Oral 436 ml IV Total 300 ml General Appearance: Alert, Cooperative, No acute distress HEENT: Atraumatic, PERRLA, EOMI, Mucous membr. moist/pink Neck: Supple Lungs: Clear to auscultation, Normal air movement Cardiovascular: Regular rate, Normal S1, Normal S2, No murmurs, Gallops, Rubs Abdomen: Normal bowel sounds, Soft, No tenderness Extremities: Normal pulses Neuro: Cranial nerves 3-12 NL Psych/Mental Status: Mental status NL Medications Current Medications Medications Dose Ordered Sig/Harsh Route Start Time Stop Time Status Last Admin Dose Admin Sodium Chloride 10 ml Q8HR IV 02/12/25 14:00 02/22/25 05:53 10 ML Ondansetron HCl 4 mg Q4HP PRN IV 02/12/25 07:30 02/21/25 08:26 4 MG Docusate Sodium 100 mg BIDPRN PRN PO 02/12/25 07:30 02/21/25 22:43 100 MG Acetaminophen 650 mg Q6HP PRN PO 02/12/25 07:30 02/13/25 16:22 650 MG Calcium Acetate 1,334 mg TIDWMEALS PO 02/12/25 12:00 02/22/25 07:19 1,334 MG Nifedipine 60 mg DAILY PO 02/12/25 10:00 02/22/25 08:59 60 MG Apixaban 5 mg BID PO 02/12/25 22:00 02/21/25 22:45 5 MG Clonidine HCl 0.1 mg Q8HP PRN PO 02/12/25 14:45 02/22/25 00:37 0.1 MG Hydralazine HCl 10 mg Q6HP PRN IV 02/13/25 19:30 02/22/25 07:37 10 MG Pantoprazole Sodium 40 mg DAILY PO 02/16/25 10:00 02/22/25 08:59 40 MG Alprazolam 0.25 mg HS PO 02/19/25 22:00 02/21/25 22:46 0.25 MG Azithromycin 250 ml @ 125 mls/hr DAILY IV 02/21/25 10:00 02/21/25 09:35 125 MLS/HR Ceftriaxone Sodium 50 ml @ 100 mls/hr DAILY@09 IV 02/21/25 09:00 02/22/25 08:59 100 MLS/HR Lactulose 30 ml BIDPRN PRN PO 02/20/25 17:15 Acetaminophen/ Hydrocodone Bitart 1 tab Q6HP PRN PO 02/21/25 12:00 02/22/25 07:26 1 TAB Hydralazine HCl 100 mg TID PO 02/22/25 10:00 UNV Laboratory Results Laboratory Tests 02/22/25 06:15 Chemistry Test 02/22/25 06:15 Albumin 4.3 g/dL (3.2-4.8) Calcium Level 10.6 mg/dL (8.7-10.4) H Magnesium Level 2.3 mg/dL (1.6-2.6) Total Protein 7.2 g/dL (5.7-8.2) LFT Test 02/22/25 06:15 Alanine Aminotransferase (ALT) 13 U/L (7-40) Alkaline Phosphatase 71 U/L (46-116) Aspartate Amino Transferase (AST) 17 U/L (13-40) Total Bilirubin 0.3 mg/dL (0.2-1.0) Microbiology Microbiology Date/Time Source Procedure Growth Status 02/12/25 11:47 Hand Gram Stain - Final Complete 02/12/25 11:47 Hand Wound Culture - Final Complete Assessment/Plan Assessment/Plan Acute hypoxic respiratory failure Pulmonary edema Hyperkalemia End-stage renal disease on hemodialysis Left lower lobe pneumonia Hypertension Cholelithiasis Right inguinal hernia Chronic anemia of chronic kidney disease Polysubstance abuse History of aortic valve replacement, mechanical valve, on Eliquis Plan Tapered down the oxygen as tolerated Hemodialysis to be done today community health outreach worker consult, 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 find him a new environment says he says he was living with the his relatives but they are getting affected so he needs a new home He just moved from [place] Continue IV antibiotics Mechanical aortic valve, patient says he can not take warfarin due to bleeding in the past, he has been on Eliquis for 7 years Discharge planning once he is off the oxygen Monitor closely Full code Advance directives discussed for 22 minutes 02/22/2025: Get sputum culture Potassium is better at 5.1 Dialysis was done yesterday Oxygen as needed Continue IV antibiotics Monitor closely in the hospital We will need dialysis again possibly tomorrow community health outreach worker is working on arrangements for a new home or placement for the patient upon discharge Plan discussed with: Patient My Orders Orders - CONCEPCION GRANT MD Procedure Category Date Status Time Hydrocodone-Acet PHA 02/21/25 In Process 10/325mg Tab ([place] 12:00 Date of Service: Feb 22, 2025 Billing Provider: CONCEPCION GRANT MD Common Visit Codes: [id number] INP/OBS CARE(HIGH) CONCEPCION GRANT MD Feb 22, 2025 10:09
--- NOTE | 2025-02-22 11:49 | DVHPN2 ---
Progress Note Date Seen: Feb 22, 2025 Medical Necessity Reason Pt with a Central, PICC or Fol: No Subjective Review of Systems: RESPIRATORY:Abnormal Other Systems: Patient seen and examined by myself today in follow-up Objective vital signs Vital Sign Date Time Temp Pulse Resp B/P (MAP) Pulse Ox O2 Delivery O2 Flow Rate FiO2 02/22/25 09:26 97.9 75 20 188/106 (133) 100 97.9 02/22/25 08:00 Nasal Cannula* 2 28 Total Intake and Output 02/21/25 02/21/25 02/22/25 15:00 23:00 07:00 Intake Total 300 ml 436 ml 0 ml Balance 300 ml 436 ml 0 ml medications Current Medications Medications Dose Ordered Sig/Harsh Route Start Time Stop Time Status Last Admin Dose Admin Sodium Chloride 10 ml Q8HR IV 02/12/25 14:00 02/22/25 05:53 10 ML Ondansetron HCl 4 mg Q4HP PRN IV 02/12/25 07:30 02/21/25 08:26 4 MG Docusate Sodium 100 mg BIDPRN PRN PO 02/12/25 07:30 02/21/25 22:43 100 MG Acetaminophen 650 mg Q6HP PRN PO 02/12/25 07:30 02/13/25 16:22 650 MG Calcium Acetate 1,334 mg TIDWMEALS PO 02/12/25 12:00 02/22/25 07:19 1,334 MG Nifedipine 60 mg DAILY PO 02/12/25 10:00 02/22/25 08:59 60 MG Apixaban 5 mg BID PO 02/12/25 22:00 02/21/25 22:45 5 MG Clonidine HCl 0.1 mg Q8HP PRN PO 02/12/25 14:45 02/22/25 00:37 0.1 MG Hydralazine HCl 10 mg Q6HP PRN IV 02/13/25 19:30 02/22/25 07:37 10 MG Pantoprazole Sodium 40 mg DAILY PO 02/16/25 10:00 02/22/25 08:59 40 MG Alprazolam 0.25 mg HS PO 02/19/25 22:00 02/21/25 22:46 0.25 MG Azithromycin 250 ml @ 125 mls/hr DAILY IV 02/21/25 10:00 02/22/25 10:15 125 MLS/HR Ceftriaxone Sodium 50 ml @ 100 mls/hr DAILY@09 IV 02/21/25 09:00 02/22/25 08:59 100 MLS/HR Lactulose 30 ml BIDPRN PRN PO 02/20/25 17:15 Acetaminophen/ Hydrocodone Bitart 1 tab Q6HP PRN PO 02/21/25 12:00 02/22/25 07:26 1 TAB Hydralazine HCl 100 mg TID PO 02/22/25 10:00 Examination: LUNGS:Normal, CVS:Normal, MSK:Abnormal laboratory and microbiology Laboratory Tests 02/22/25 06:15 Test 02/22/25 06:15 Range/Units Serum Glucose 90 74-106 mg/dL Microbiology Date/Time Source Procedure Growth Status 02/12/25 11:47 Hand Gram Stain - Final Complete 02/12/25 11:47 Hand Wound Culture - Final Complete Problem List/Assessment/Plan Problem List/Assessment/Plan End-stage renal disease on hemodialysis Hyperkalemia secondary to dietary indiscretion, resolved Polysubstance abuse Hypertension Chronic diastolic Congestive heart failure Anemia of chronic kidney disease Hypercalcemia Recommendations Hemodialysis tomorrow Epogen 10,000 subQ 3 times weekly Resume home medications Blood pressure control Check phosphorus, 25 hydroxyvitamin D and PTH Renal diet We will continue to follow Plan discussed with: Patient My Orders My Orders Orders - DANIELLA GAGE MD Procedure Category Date Status Time Hydralazine Hcl PHA 02/22/25 In Process Tablet (Apresoline 10:00 Hemodialysis Orders ORDERS 02/23/25 Transmitted 07:00 Dialysis Nursing LELIA 02/23/25 In Process Message 07:00 Heparin Sodium PHA 02/23/25 In Process (Porcine) 07:00 Heparin Sodium PHA 02/23/25 In Process (Porcine) 07:00 Sodium Chloride 0.9% PHA 02/23/25 In Process 07:00 Document Fluid Input LELIA 02/23/25 In Process And Outpu 07:00 Epoetin Suresh-Epbx PHA 02/23/25 In Process (Retacrit) 21:00 Dietary Evaluation Review Recommendations by RD: Protein Supplementation Comments: 1) Initiate Nepro bid. Encourage optimal PO intake 2) Collect renal panel including phosphorus lab 3) Follow-up with nephrology and cardiology 4) Follow-up with social director regarding polysubstance abuse 5) Continue to monitor I&O, labs, and skin integrity Expected Outcomes/Goals: 1) appetite and labs to improve 2) wound to improve 3) f/u in 3-5 days DANIELLA GAGE MD Feb 22, 2025 11:49
[2025-02-22 12:12] LABS: Magnesium 2.3 mg/dL (1.6-2.6)
[2025-02-22 12:20] LABS: Phosphorus 5.3 mg/dL (2.4-5.1)
[2025-02-22] MEDS: hydrALAZINE HCL 25 MG TAB PO SCH (12:26)
[2025-02-23] VITALS (8 sets, daily range): BP systolic 157–190; BP diastolic 89–113; PULSE 58–91; RESP 16–18; TEMP 97.5–98.7; O2SAT 93–99
[2025-02-23 06:56] LABS: Anion Gap 11 (5-15); Carbon Dioxide 28 mmol/L (20-31)
[2025-02-23] MEDS: SODIUM CHL 0.9% 1000 ML BAG XX ONE (07:00)
[2025-02-23 07:01] LABS: BUN/Creatinine Ratio 4.8 (10.0-20.0); Glucose 86 mg/dL (74-106)
[2025-02-23 07:15] LABS: Blood Urea Nitrogen 48 mg/dL (9-23); Chloride 96 mmol/L (98-107); Potassium 5.3 mmol/L (3.5-5.1); Sodium 135 mmol/L (136-145)
[2025-02-23 07:16] LABS: Calcium 10.9 mg/dL (8.7-10.4)
[2025-02-23] MEDS: AZITHROMYCIN 250 MG TAB PO SCH (09:12)
--- NOTE | 2025-02-23 11:11 | DVHPN2 ---
Progress Note Date Seen: Feb 23, 2025 Medical Necessity Reason Pt with a Central, PICC or Fol: No Subjective Patient reports: No new complaints Other Systems: Patient seen and examined by myself today in follow-up Patient examined hemodialysis, blood pressure stable Objective vital signs Vital Sign Date Time Temp Pulse Resp B/P (MAP) Pulse Ox O2 Delivery O2 Flow Rate FiO2 02/23/25 07:58 98.7 91 18 157/94 (115) 93 98.7 02/22/25 20:00 Nasal Cannula* 2 28 Total Intake and Output 02/22/25 02/22/25 02/23/25 15:00 23:00 07:00 Intake Total 50 ml 850 ml 275 ml Balance 50 ml 850 ml 275 ml medications Current Medications Medications Dose Ordered Sig/Harsh Route Start Time Stop Time Status Last Admin Dose Admin Sodium Chloride 10 ml Q8HR IV 02/12/25 14:00 02/23/25 06:32 10 ML Ondansetron HCl 4 mg Q4HP PRN IV 02/12/25 07:30 02/21/25 08:26 4 MG Docusate Sodium 100 mg BIDPRN PRN PO 02/12/25 07:30 02/23/25 09:12 100 MG Acetaminophen 650 mg Q6HP PRN PO 02/12/25 07:30 02/13/25 16:22 650 MG Calcium Acetate 1,334 mg TIDWMEALS PO 02/12/25 12:00 02/23/25 09:12 1,334 MG Nifedipine 60 mg DAILY PO 02/12/25 10:00 02/22/25 08:59 60 MG Apixaban 5 mg BID PO 02/12/25 22:00 02/23/25 09:12 5 MG Clonidine HCl 0.1 mg Q8HP PRN PO 02/12/25 14:45 02/22/25 00:37 0.1 MG Hydralazine HCl 10 mg Q6HP PRN IV 02/13/25 19:30 02/22/25 07:37 10 MG Pantoprazole Sodium 40 mg DAILY PO 02/16/25 10:00 02/23/25 09:12 40 MG Alprazolam 0.25 mg HS PO 02/19/25 22:00 02/22/25 21:06 0.25 MG Ceftriaxone Sodium 50 ml @ 100 mls/hr DAILY@09 IV 02/21/25 09:00 02/23/25 09:13 100 MLS/HR Lactulose 30 ml BIDPRN PRN PO 02/20/25 17:15 Acetaminophen/ Hydrocodone Bitart 1 tab Q6HP PRN PO 02/21/25 12:00 02/23/25 09:13 1 TAB Hydralazine HCl 100 mg TID PO 02/22/25 10:00 02/23/25 06:32 100 MG Azithromycin 500 mg DAILY PO 02/23/25 10:00 02/23/25 09:12 500 MG Examination: LUNGS:Normal, CVS:Normal, MSK:Normal laboratory and microbiology Laboratory Tests 02/23/25 06:03 02/22/25 06:15 Test 02/23/25 06:03 Range/Units Serum Glucose 86 74-106 mg/dL Microbiology Date/Time Source Procedure Growth Status 02/22/25 10:05 Sputum Gram Stain Pending Resulted 02/22/25 10:05 Sputum Respiratory Culture - Preliminary Resulted 02/12/25 11:47 Hand Gram Stain - Final Complete 02/12/25 11:47 Hand Wound Culture - Final Complete Problem List/Assessment/Plan Problem List/Assessment/Plan End-stage renal disease on hemodialysis Hyperkalemia secondary to dietary indiscretion, resolved Polysubstance abuse Hypertension Hyperkalemia Chronic diastolic Congestive heart failure Anemia of chronic kidney disease Hypercalcemia secondary to primary hyperparathyroidism Bilateral nephrolithiasis, nonobstructing Recommendations Continue with UF 3-4 L as tolerated Epogen 10,000 subQ 3 times weekly Resume home medications Blood pressure control Check parathyroid nuclear scan rule out parathyroid adenoma Renal diet We will continue to follow Plan discussed with: Patient Dietary Evaluation Review Recommendations by RD: Protein Supplementation Comments: 1) Initiate Nepro bid. Encourage optimal PO intake 2) Collect renal panel including phosphorus lab 3) Follow-up with nephrology and cardiology 4) Follow-up with social work manager regarding polysubstance abuse 5) Continue to monitor I&O, labs, and skin integrity Expected Outcomes/Goals: 1) appetite and labs to improve 2) wound to improve 3) f/u in 3-5 days DANIELLA GAGE MD Feb 23, 2025 11:11
--- NOTE | 2025-02-23 19:29 | DVHPN2 ---
Subjective Coughing up dark phlegm Reviewed: Care Plan, H&P, Labs, Medications, Previous Orders, Radiology Changes from previous H/P or p: Changes General: Per HPI Eyes: No Pain, No Vision change, No Conjunctivae inflammation, No Eyelid inflammation, No Other, No Redness ENT: No Ear pain, No Ear discharge, No Nose pain, No Nose discharge, No Nose congestion, No Mouth pain, No Mouth swelling, No Throat pain, No Throat swelling, No Other Cardiovascular: No Chest Pain, No Palpitations, No Orthopnea, No Paroxysmal Noc. Dyspnea, No Edema, No Lt Headedness, No Other Respiratory: No Cough, No Dry; Shortness of breath, SOB with excertion; No Wheezing, No Hemoptysis, No Pleuritic Pain, No Sputum, No Other Gastrointestinal: No Nausea, No Vomiting, No Abdominal Pain, No Diarrhea, No Constipation, No Melena, No Hematochezia, No Other Genitourinary: No Dysuria, No Frequency, No Incontinence, No Hematuria, No Retention, No Other Skin: No Rash, No Lesions, No Jaundice, No Bruising, No Other Objective Vitals Vital Signs Date Time Temp Pulse Resp B/P (MAP) Pulse Ox O2 Delivery O2 Flow Rate FiO2 02/23/25 16:41 98.4 78 18 158/103 (121) 99 98.4 02/23/25 08:00 Nasal Cannula* 2 28 Intake/Output Intake and Output 02/23/25 07:00 Intake Total 1175 ml Balance 1175 ml Intake Oral 1125 ml IV Total 50 ml General Appearance: Alert, Cooperative, No acute distress HEENT: Atraumatic, PERRLA, EOMI, Mucous membr. moist/pink Neck: Supple Lungs: Clear to auscultation, Normal air movement Cardiovascular: Regular rate, Normal S1, Normal S2, No murmurs, Gallops, Rubs Abdomen: Normal bowel sounds, Soft, No tenderness Extremities: Normal pulses Neuro: Cranial nerves 3-12 NL Psych/Mental Status: Mental status NL Medications Current Medications Medications Dose Ordered Sig/Harsh Route Start Time Stop Time Status Last Admin Dose Admin Sodium Chloride 10 ml Q8HR IV 02/12/25 14:00 02/23/25 13:41 10 ML Ondansetron HCl 4 mg Q4HP PRN IV 02/12/25 07:30 02/23/25 13:00 4 MG Docusate Sodium 100 mg BIDPRN PRN PO 02/12/25 07:30 02/23/25 09:12 100 MG Acetaminophen 650 mg Q6HP PRN PO 02/12/25 07:30 02/13/25 16:22 650 MG Calcium Acetate 1,334 mg TIDWMEALS PO 02/12/25 12:00 02/23/25 09:12 1,334 MG Nifedipine 60 mg DAILY PO 02/12/25 10:00 02/23/25 11:58 60 MG Apixaban 5 mg BID PO 02/12/25 22:00 02/23/25 09:12 5 MG Clonidine HCl 0.1 mg Q8HP PRN PO 02/12/25 14:45 02/22/25 00:37 0.1 MG Hydralazine HCl 10 mg Q6HP PRN IV 02/13/25 19:30 02/23/25 11:58 10 MG Pantoprazole Sodium 40 mg DAILY PO 02/16/25 10:00 02/23/25 09:12 40 MG Alprazolam 0.25 mg HS PO 02/19/25 22:00 02/22/25 21:06 0.25 MG Ceftriaxone Sodium 50 ml @ 100 mls/hr DAILY@09 IV 02/21/25 09:00 02/23/25 09:13 100 MLS/HR Lactulose 30 ml BIDPRN PRN PO 02/20/25 17:15 Acetaminophen/ Hydrocodone Bitart 1 tab Q6HP PRN PO 02/21/25 12:00 02/23/25 16:31 1 TAB Hydralazine HCl 100 mg TID PO 02/22/25 10:00 02/23/25 14:59 100 MG Azithromycin 500 mg DAILY PO 02/23/25 10:00 02/23/25 09:12 500 MG Laboratory Results Laboratory Tests 02/22/25 06:15 02/23/25 06:03 Chemistry Test 02/23/25 06:03 Calcium Level 10.9 mg/dL (8.7-10.4) H Microbiology Microbiology Date/Time Source Procedure Growth Status 02/22/25 10:05 Sputum Gram Stain - Final Resulted 02/22/25 10:05 Sputum Respiratory Culture - Preliminary Resulted 02/12/25 11:47 Hand Gram Stain - Final Complete 02/12/25 11:47 Hand Wound Culture - Final Complete Assessment/Plan Assessment/Plan Acute hypoxic respiratory failure Pulmonary edema Hyperkalemia End-stage renal disease on hemodialysis Left lower lobe pneumonia Hypertension Cholelithiasis Right inguinal hernia Chronic anemia of chronic kidney disease Polysubstance abuse History of aortic valve replacement, mechanical valve, on Eliquis left renal calculi Hypercalcemia due to primary hyperparathyroidism Primary hyperparathyroidism Plan Tapered down the oxygen as tolerated Hemodialysis to be done today 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, 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 find 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 a new environment says he says he was living with the his relatives but they are getting affected so he needs a new home He just moved from [place] Continue IV antibiotics Mechanical aortic valve, patient says he can not take warfarin due to bleeding in the past, he has been on Eliquis for 7 years Discharge planning once he is off the oxygen Monitor closely Full code Advance directives discussed for 22 minutes 02/22/2025: Get sputum culture Potassium is better at 5.1 Dialysis was done yesterday Oxygen as needed Continue IV antibiotics Monitor closely in the hospital We will need dialysis again possibly tomorrow scaffold worker is working on arrangements for a new home or placement for the patient upon discharge 02/23/25: Parathyroid nuclear scan HD per nephrology Right inguinal hernia, asymptomatic Discharge planning Plan discussed with: Patient Date of Service: Feb 23, 2025 Billing Provider: CONCEPCION GRANT MD Common Visit Codes: [id number] INP/OBS CARE(HIGH) CONCEPCION GRANT MD Feb 23, 2025 19:29
[2025-02-24] VITALS (9 sets, daily range): BP systolic 128–187; BP diastolic 75–114; PULSE 61–85; RESP 16–18; TEMP 97.6–98.1; O2SAT 96–100
[2025-02-24 06:34] LABS: Anion Gap 12 (5-15); Carbon Dioxide 27 mmol/L (20-31)
[2025-02-24 06:40] LABS: BUN/Creatinine Ratio 4.7 (10.0-20.0); Glucose 96 mg/dL (74-106)
[2025-02-24 07:42] LABS: Blood Urea Nitrogen 57 mg/dL (9-23); Calcium 10.6 mg/dL (8.7-10.4); Chloride 95 mmol/L (98-107); Sodium 134 mmol/L (136-145)
[2025-02-24 07:44] LABS: Potassium 5.8 mmol/L (3.5-5.1)
[2025-02-24] MEDS: SODIUM ZIRCONIUM CYCL 10 GM PAK PO ONE (09:15)
--- NOTE | 2025-02-24 09:22 | DVHPN2 ---
Subjective Still coughing up dark phelgm with blood Did not get HD yesterday K is high Reviewed: Care Plan, H&P, Labs, Medications, Previous Orders, Radiology Changes from previous H/P or p: Changes General: Per HPI Eyes: No Pain, No Vision change, No Conjunctivae inflammation, No Eyelid inflammation, No Other, No Redness ENT: No Ear pain, No Ear discharge, No Nose pain, No Nose discharge, No Nose congestion, No Mouth pain, No Mouth swelling, No Throat pain, No Throat swelling, No Other Cardiovascular: No Chest Pain, No Palpitations, No Orthopnea, No Paroxysmal Noc. Dyspnea, No Edema, No Lt Headedness, No Other Respiratory: No Cough, No Dry; Shortness of breath, SOB with excertion; No Wheezing, No Hemoptysis, No Pleuritic Pain, No Sputum, No Other Gastrointestinal: No Nausea, No Vomiting, No Abdominal Pain, No Diarrhea, No Constipation, No Melena, No Hematochezia, No Other Genitourinary: No Dysuria, No Frequency, No Incontinence, No Hematuria, No Retention, No Other Skin: No Rash, No Lesions, No Jaundice, No Bruising, No Other Objective Vitals Vital Signs Date Time Temp Pulse Resp B/P (MAP) Pulse Ox O2 Delivery O2 Flow Rate FiO2 02/24/25 08:50 98.0 83 16 175/104 (127) 96 98.0 02/23/25 20:00 Nasal Cannula* 2 28 Intake/Output Intake and Output 02/24/25 07:00 Intake Total 1620 ml Output Total 0 ml Balance 1620 ml Intake Oral 1620 ml Output Urine Total 0 ml General Appearance: Alert, Cooperative, No acute distress HEENT: Atraumatic, PERRLA, EOMI, Mucous membr. moist/pink Neck: Supple Lungs: Clear to auscultation, Normal air movement Cardiovascular: Regular rate, Normal S1, Normal S2, No murmurs, Gallops, Rubs Abdomen: Normal bowel sounds, Soft, No tenderness Extremities: Normal pulses Neuro: Cranial nerves 3-12 NL Psych/Mental Status: Mental status NL Medications Current Medications Medications Dose Ordered Sig/Harsh Route Start Time Stop Time Status Last Admin Dose Admin Sodium Chloride 10 ml Q8HR IV 02/12/25 14:00 02/24/25 06:18 10 ML Ondansetron HCl 4 mg Q4HP PRN IV 02/12/25 07:30 02/23/25 13:00 4 MG Docusate Sodium 100 mg BIDPRN PRN PO 02/12/25 07:30 02/23/25 09:12 100 MG Acetaminophen 650 mg Q6HP PRN PO 02/12/25 07:30 02/13/25 16:22 650 MG Calcium Acetate 1,334 mg TIDWMEALS PO 02/12/25 12:00 02/23/25 09:12 1,334 MG Nifedipine 60 mg DAILY PO 02/12/25 10:00 02/23/25 11:58 60 MG Apixaban 5 mg BID PO 02/12/25 22:00 02/23/25 21:10 5 MG Clonidine HCl 0.1 mg Q8HP PRN PO 02/12/25 14:45 02/22/25 00:37 0.1 MG Hydralazine HCl 10 mg Q6HP PRN IV 02/13/25 19:30 02/23/25 11:58 10 MG Pantoprazole Sodium 40 mg DAILY PO 02/16/25 10:00 02/23/25 09:12 40 MG Alprazolam 0.25 mg HS PO 02/19/25 22:00 02/23/25 21:10 0.25 MG Lactulose 30 ml BIDPRN PRN PO 02/20/25 17:15 Acetaminophen/ Hydrocodone Bitart 1 tab Q6HP PRN PO 02/21/25 12:00 02/24/25 06:18 1 TAB Hydralazine HCl 100 mg TID PO 02/22/25 10:00 02/24/25 06:18 100 MG Laboratory Results Laboratory Tests 02/22/25 06:15 02/24/25 05:40 Chemistry Test 02/24/25 05:40 Calcium Level 10.6 mg/dL (8.7-10.4) H Microbiology Microbiology Date/Time Source Procedure Growth Status 02/22/25 10:05 Sputum Gram Stain - Final Resulted 02/22/25 10:05 Sputum Respiratory Culture - Preliminary Resulted 02/12/25 11:47 Hand Gram Stain - Final Complete 02/12/25 11:47 Hand Wound Culture - Final Complete Assessment/Plan Assessment/Plan Acute hypoxic respiratory failure Pulmonary edema Hyperkalemia End-stage renal disease on hemodialysis Left lower lobe pneumonia Hypertension Cholelithiasis Right inguinal hernia Chronic anemia of chronic kidney disease Polysubstance abuse History of aortic valve replacement, mechanical valve, on Eliquis left renal calculi Hypercalcemia due to primary hyperparathyroidism Primary hyperparathyroidism Plan Tapered down the oxygen as tolerated Hemodialysis to be done today 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, 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 find him a new environment says he says he was living with the his relatives but they are getting affected so he needs a new home He just moved from [place] Continue IV antibiotics Mechanical aortic valve, patient says he can not take warfarin due to bleeding in the past, he has been on Eliquis for 7 years Discharge planning once he is off the oxygen Monitor closely Full code Advance directives discussed for 22 minutes 02/22/2025: Get sputum culture Potassium is better at 5.1 Dialysis was done yesterday Oxygen as needed Continue IV antibiotics Monitor closely in the hospital We will need dialysis again possibly tomorrow leather production worker is working on arrangements for a new home or placement for the patient upon discharge 02/23/25: Parathyroid nuclear scan HD per nephrology Right inguinal hernia, asymptomatic Discharge planning 02/24/25: Pneumonia / Cough / Hemoptysis: Change antibiotics to Meropenem & Doxy Sputum culture not diagnostic HD Hyperkalemia: Lokelma Plan discussed with: Patient My Orders Orders - CONCEPCION GRANT MD Procedure Category Date Status Time Meropenem 500mg PHA 02/24/25 Verified Daily(Gfr<10) 10:00 Doxycycline PHA 02/24/25 Verified 100mg/100ml 09:30 Date of Service: Feb 24, 2025 Billing Provider: CONCEPCION GRANT MD Common Visit Codes: [id number] INP/OBS CARE(HIGH) CONCEPCION GRANT MD Feb 24, 2025 09:22
--- NOTE | 2025-02-24 09:28 | DVHPN2 ---
Progress Note Date Seen: Feb 24, 2025 Medical Necessity Reason Pt with a Central, PICC or Fol: No Subjective Patient reports: No new complaints Other Systems: Patient and examined by myself today in follow-up Patient examined hemodialysis, blood pressure stable the anti had the morning down or Friday Objective vital signs Vital Sign Date Time Temp Pulse Resp B/P (MAP) Pulse Ox O2 Delivery O2 Flow Rate FiO2 02/24/25 08:50 98.0 83 16 175/104 (127) 96 98.0 02/23/25 20:00 Nasal Cannula* 2 28 Total Intake and Output 02/23/25 02/23/25 02/24/25 15:00 23:00 07:00 Intake Total 400 ml 1220 ml Output Total 0 ml 0 ml Balance 400 ml 1220 ml medications Current Medications Medications Dose Ordered Sig/Harsh Route Start Time Stop Time Status Last Admin Dose Admin Sodium Chloride 10 ml Q8HR IV 02/12/25 14:00 02/24/25 06:18 10 ML Ondansetron HCl 4 mg Q4HP PRN IV 02/12/25 07:30 02/23/25 13:00 4 MG Docusate Sodium 100 mg BIDPRN PRN PO 02/12/25 07:30 02/23/25 09:12 100 MG Acetaminophen 650 mg Q6HP PRN PO 02/12/25 07:30 02/13/25 16:22 650 MG Calcium Acetate 1,334 mg TIDWMEALS PO 02/12/25 12:00 02/23/25 09:12 1,334 MG Nifedipine 60 mg DAILY PO 02/12/25 10:00 02/23/25 11:58 60 MG Apixaban 5 mg BID PO 02/12/25 22:00 02/23/25 21:10 5 MG Clonidine HCl 0.1 mg Q8HP PRN PO 02/12/25 14:45 02/22/25 00:37 0.1 MG Hydralazine HCl 10 mg Q6HP PRN IV 02/13/25 19:30 02/23/25 11:58 10 MG Pantoprazole Sodium 40 mg DAILY PO 02/16/25 10:00 02/23/25 09:12 40 MG Alprazolam 0.25 mg HS PO 02/19/25 22:00 02/23/25 21:10 0.25 MG Lactulose 30 ml BIDPRN PRN PO 02/20/25 17:15 Acetaminophen/ Hydrocodone Bitart 1 tab Q6HP PRN PO 02/21/25 12:00 02/24/25 06:18 1 TAB Hydralazine HCl 100 mg TID PO 02/22/25 10:00 02/24/25 06:18 100 MG Meropenem 50 ml @ 17 mls/hr DAILY IV 02/24/25 10:00 UNV Doxycycline Hyclate 100 ml @ 50 mls/hr Q12H IV 02/24/25 09:30 UNV laboratory and microbiology Laboratory Tests 02/24/25 05:40 02/22/25 06:15 Test 02/24/25 05:40 Range/Units Serum Glucose 96 74-106 mg/dL Microbiology Date/Time Source Procedure Growth Status 02/22/25 10:05 Sputum Gram Stain - Final Resulted 02/22/25 10:05 Sputum Respiratory Culture - Preliminary Resulted 02/12/25 11:47 Hand Gram Stain - Final Complete 02/12/25 11:47 Hand Wound Culture - Final Complete Problem List/Assessment/Plan Problem List/Assessment/Plan [facility] way of any patient many patient End-stage renal disease on hemodialysis Hyperkalemia secondary to dietary indiscretion, resolved Polysubstance abuse Hypertension Hyperkalemia Chronic diastolic Congestive heart failure Anemia of chronic kidney disease Hypercalcemia secondary to primary hyperparathyroidism Bilateral nephrolithiasis, nonobstructing Recommendations Continue with UF 3-4 L as tolerated Epogen 10,000 subQ 3 times weekly Resume home medications Blood pressure control Check parathyroid nuclear scan rule out parathyroid adenoma, patient refused Renal diet We will continue to follow Plan discussed with: Patient My Orders My Orders Orders - DANIELLA GAGE MD Procedure Category Date Status Time Parathyroid NM 02/23/25 Logged 11:11 Dietary Evaluation Review Recommendations by RD: Protein Supplementation Comments: 1) Initiate Nepro bid. Encourage optimal PO intake 2) Collect renal panel including phosphorus lab 3) Follow-up with nephrology and cardiology 4) Follow-up with social service director regarding polysubstance abuse 5) Continue to monitor I&O, labs, and skin integrity Expected Outcomes/Goals: 1) appetite and labs to improve 2) wound to improve 3) f/u in 3-5 days DANIELLA GAGE MD Feb 24, 2025 09:28
[2025-02-24] MEDS: MEROPENEM 500MG IVPB 50 ML IV SCH (10:00)
[2025-02-24] MEDS: DOXYCYCLINE 100MG/100ML 100 ML IV SCH (13:06)
[2025-02-24] MEDS: EPOETIN ALFA-EPBX 10,000 UNIT/1ML VIAL SC ONE (21:53)
[2025-02-25] VITALS (8 sets, daily range): BP systolic 148–168; BP diastolic 88–107; PULSE 65–82; RESP 16–19; TEMP 97.7–99.7; O2SAT 95–100
--- NOTE | 2025-02-25 14:24 | DVHPN2 ---
Progress Note Date Seen: Feb 25, 2025 Medical Necessity Reason Pt with a Central, PICC or Fol: No Subjective Review of Systems Pt states he feels well today. Patient reports: No new complaints, Feels better Objective vital signs Vital Sign Date Time Temp Pulse Resp B/P (MAP) Pulse Ox O2 Delivery O2 Flow Rate FiO2 02/25/25 13:50 153/100 02/25/25 12:39 97.8 82 16 99 97.8 02/25/25 08:00 Nasal Cannula* 2 28 Total Intake and Output 02/24/25 02/24/25 02/25/25 15:00 23:00 07:00 Intake Total 150 ml 600 ml 600 ml Balance 150 ml 600 ml 600 ml medications Current Medications Medications Dose Ordered Sig/Harsh Route Start Time Stop Time Status Last Admin Dose Admin Sodium Chloride 10 ml Q8HR IV 02/12/25 14:00 02/25/25 13:50 10 ML Ondansetron HCl 4 mg Q4HP PRN IV 02/12/25 07:30 02/24/25 18:55 4 MG Docusate Sodium 100 mg BIDPRN PRN PO 02/12/25 07:30 02/24/25 13:17 100 MG Acetaminophen 650 mg Q6HP PRN PO 02/12/25 07:30 02/13/25 16:22 650 MG Calcium Acetate 1,334 mg TIDWMEALS PO 02/12/25 12:00 02/25/25 11:57 1,334 MG Nifedipine 60 mg DAILY PO 02/12/25 10:00 02/25/25 08:16 60 MG Apixaban 5 mg BID PO 02/12/25 22:00 02/24/25 21:44 5 MG Clonidine HCl 0.1 mg Q8HP PRN PO 02/12/25 14:45 02/25/25 11:58 0.1 MG Hydralazine HCl 10 mg Q6HP PRN IV 02/13/25 19:30 02/23/25 11:58 10 MG Pantoprazole Sodium 40 mg DAILY PO 02/16/25 10:00 02/25/25 08:18 40 MG Alprazolam 0.25 mg HS PO 02/19/25 22:00 02/24/25 21:45 0.25 MG Lactulose 30 ml BIDPRN PRN PO 02/20/25 17:15 02/25/25 08:19 30 ML Acetaminophen/ Hydrocodone Bitart 1 tab Q6HP PRN PO 02/21/25 12:00 02/24/25 21:44 1 TAB Hydralazine HCl 100 mg TID PO 02/22/25 10:00 02/25/25 13:50 100 MG Meropenem 50 ml @ 17 mls/hr DAILY IV 02/24/25 10:00 02/25/25 08:16 17 MLS/HR Doxycycline Hyclate 100 ml @ 50 mls/hr Q12H IV 02/24/25 13:00 02/25/25 11:58 50 MLS/HR Hydroxyzine Pamoate 25 mg Q6HP PRN PO 02/25/25 08:00 Examination Gen: NAD, appears stated age Lungs: Bilateral air entry, no rales Heart: RRR, normal S1 and S2 Ext: No edema Neuro: A&O x4 laboratory and microbiology Laboratory Tests 02/24/25 05:40 02/22/25 06:15 Test 02/24/25 05:40 Range/Units Serum Glucose 96 74-106 mg/dL Microbiology Date/Time Source Procedure Growth Status 02/22/25 10:05 Sputum Gram Stain - Final Complete 02/22/25 10:05 Sputum Respiratory Culture - Final Complete 02/12/25 11:47 Hand Gram Stain - Final Complete 02/12/25 11:47 Hand Wound Culture - Final Complete Problem List/Assessment/Plan Problem List/Assessment/Plan IMP ESRD on HD HTN Hx of CHF Polysubstance abuse L nephrolithiasis, nonobstructing Bilateral renal cysts Anemia of chronic kidney disease REC HD tentatively 02/26 Chemistry panel Fluid restriction 1.5L/day Strict I&Os Will continue to follow Plan discussed with: Patient Dietary Evaluation Review Recommendations by RD: Protein Supplementation Comments: 1) Initiate Nepro bid. Encourage optimal PO intake 2) Collect renal panel including phosphorus lab 3) Follow-up with nephrology and cardiology 4) Follow-up with social service agency director regarding polysubstance abuse 5) Continue to monitor I&O, labs, and skin integrity Expected Outcomes/Goals: 1) appetite and labs to improve 2) wound to improve 3) f/u in 3-5 days ROBERT BAILEY Feb 25, 2025 14:24
--- NOTE | 2025-02-25 14:35 | DVHPN2 ---
Subjective The cough is better Less phlegm production Potassium is high at 5.8 Reviewed: Care Plan, H&P, Labs, Medications, Previous Orders, Radiology Changes from previous H/P or p: Changes General: Per HPI Eyes: No Pain, No Vision change, No Conjunctivae inflammation, No Eyelid inflammation, No Other, No Redness ENT: No Ear pain, No Ear discharge, No Nose pain, No Nose discharge, No Nose congestion, No Mouth pain, No Mouth swelling, No Throat pain, No Throat swelling, No Other Cardiovascular: No Chest Pain, No Palpitations, No Orthopnea, No Paroxysmal Noc. Dyspnea, No Edema, No Lt Headedness, No Other Respiratory: No Cough, No Dry; Shortness of breath, SOB with excertion; No Wheezing, No Hemoptysis, No Pleuritic Pain, No Sputum, No Other Gastrointestinal: No Nausea, No Vomiting, No Abdominal Pain, No Diarrhea, No Constipation, No Melena, No Hematochezia, No Other Genitourinary: No Dysuria, No Frequency, No Incontinence, No Hematuria, No Retention, No Other Skin: No Rash, No Lesions, No Jaundice, No Bruising, No Other Objective Vitals Vital Signs Date Time Temp Pulse Resp B/P (MAP) Pulse Ox O2 Delivery O2 Flow Rate FiO2 02/25/25 13:50 153/100 02/25/25 12:39 97.8 82 16 99 97.8 02/25/25 08:00 Nasal Cannula* 2 28 Intake/Output Intake and Output 02/25/25 07:00 Intake Total 1350 ml Balance 1350 ml Intake Oral 1200 ml IV Total 150 ml General Appearance: Alert, Cooperative, No acute distress HEENT: Atraumatic, PERRLA, EOMI, Mucous membr. moist/pink Neck: Supple Lungs: Clear to auscultation, Normal air movement Cardiovascular: Regular rate, Normal S1, Normal S2, No murmurs, Gallops, Rubs Abdomen: Normal bowel sounds, Soft, No tenderness Extremities: Normal pulses Neuro: Cranial nerves 3-12 NL Psych/Mental Status: Mental status NL Medications Current Medications Medications Dose Ordered Sig/Harsh Route Start Time Stop Time Status Last Admin Dose Admin Sodium Chloride 10 ml Q8HR IV 02/12/25 14:00 02/25/25 13:50 10 ML Ondansetron HCl 4 mg Q4HP PRN IV 02/12/25 07:30 6/5/25 18:55 4 MG Docusate Sodium 100 mg BIDPRN PRN PO 02/12/25 07:30 02/24/25 13:17 100 MG Acetaminophen 650 mg Q6HP PRN PO 02/12/25 07:30 02/13/25 16:22 650 MG Calcium Acetate 1,334 mg TIDWMEALS PO 02/12/25 12:00 02/25/25 11:57 1,334 MG Nifedipine 60 mg DAILY PO 02/12/25 10:00 02/25/25 08:16 60 MG Apixaban 5 mg BID PO 02/12/25 22:00 02/24/25 21:44 5 MG Clonidine HCl 0.1 mg Q8HP PRN PO 02/12/25 14:45 02/25/25 11:58 0.1 MG Hydralazine HCl 10 mg Q6HP PRN IV 02/13/25 19:30 02/23/25 11:58 10 MG Pantoprazole Sodium 40 mg DAILY PO 02/16/25 10:00 02/25/25 08:18 40 MG Alprazolam 0.25 mg HS PO 02/19/25 22:00 02/24/25 21:45 0.25 MG Lactulose 30 ml BIDPRN PRN PO 02/20/25 17:15 02/25/25 08:19 30 ML Acetaminophen/ Hydrocodone Bitart 1 tab Q6HP PRN PO 02/21/25 12:00 02/24/25 21:44 1 TAB Hydralazine HCl 100 mg TID PO 02/22/25 10:00 02/25/25 13:50 100 MG Meropenem 50 ml @ 17 mls/hr DAILY IV 02/24/25 10:00 02/25/25 08:16 17 MLS/HR Doxycycline Hyclate 100 ml @ 50 mls/hr Q12H IV 02/24/25 13:00 02/25/25 11:58 50 MLS/HR Hydroxyzine Pamoate 25 mg Q6HP PRN PO 02/25/25 08:00 Laboratory Results Laboratory Tests 02/22/25 06:15 02/24/25 05:40 Microbiology Microbiology Date/Time Source Procedure Growth Status 02/22/25 10:05 Sputum Gram Stain - Final Complete 02/22/25 10:05 Sputum Respiratory Culture - Final Complete 02/12/25 11:47 Hand Gram Stain - Final Complete 02/12/25 11:47 Hand Wound Culture - Final Complete Assessment/Plan Assessment/Plan Acute hypoxic respiratory failure Pulmonary edema Hyperkalemia End-stage renal disease on hemodialysis Left lower lobe pneumonia Hypertension Cholelithiasis Right inguinal hernia Chronic anemia of chronic kidney disease Polysubstance abuse History of aortic valve replacement, mechanical valve, on Eliquis left renal calculi Hypercalcemia due to primary hyperparathyroidism Primary hyperparathyroidism Plan Tapered down the oxygen as tolerated Hemodialysis to be done today forestry worker consult, 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 find him a new environment says he says he was living with the his relatives but they are getting affected so he needs a new home He just moved from [place] Continue IV antibiotics Mechanical aortic valve, patient says he can not take warfarin due to bleeding in the past, he has been on Eliquis for 7 years Discharge planning once he is off the oxygen Monitor closely Full code Advance directives discussed for 22 minutes 02/22/2025: Get sputum culture Potassium is better at 5.1 Dialysis was done yesterday Oxygen as needed Continue IV antibiotics Monitor closely in the hospital We will need dialysis again possibly tomorrow forestry worker is working on arrangements for a new home or placement for the patient upon discharge 02/23/25: Parathyroid nuclear scan HD per nephrology Right inguinal hernia, asymptomatic Discharge planning 02/24/25: Pneumonia / Cough / Hemoptysis: Change antibiotics to Meropenem & Doxy Sputum culture not diagnostic HD Hyperkalemia: Lokelma 02/25/2025: Hyperkalemia: Lokelma 10 g Hemodialysis was done yesterday Continue the current regimen of IV antibiotics Monitor closely Discharge planning in 1-2 days to go to dialysis on Friday as outpatient Plan discussed with: Patient My Orders Orders - CONCEPCION GRANT MD Procedure Category Date Status Time Hydroxyzine Oral PHA 02/25/25 In Process (Vistaril Oral) 08:00 Date of Service: Feb 25, 2025 Billing Provider: CONCEPCION GRANT MD Common Visit Codes: [id number] INP/OBS CARE(HIGH) CONCEPCION GRANT MD Feb 25, 2025 14:34
[2025-02-26] VITALS (8 sets, daily range): BP systolic 136–170; BP diastolic 85–107; PULSE 57–83; RESP 16–18; TEMP 97.5–98.7; O2SAT 96–100
[2025-02-26 06:46] LABS: Anion Gap 10 (5-15); Carbon Dioxide 27 mmol/L (20-31)
[2025-02-26 06:53] LABS: Glucose 89 mg/dL (74-106)
[2025-02-26 07:15] LABS: Blood Urea Nitrogen 53 mg/dL (9-23)
[2025-02-26 07:16] LABS: Sodium 134 mmol/L (136-145)
[2025-02-26 07:17] LABS: Calcium 11.5 mg/dL (8.7-10.4); Chloride 97 mmol/L (98-107); Potassium 5.8 mmol/L (3.5-5.1)
[2025-02-26] MEDS: SODIUM ZIRCONIUM CYCL 10 GM PAK PO ONE (10:54)
[2025-02-26] MEDS: hydrOXYzine 25 MG TAB or CAP PO PRN (11:03)
--- NOTE | 2025-02-26 12:41 | DVHPN2 ---
Subjective The cough is better Less phlegm production Potassium is still high at 5.8 Reviewed: Care Plan, H&P, Labs, Medications, Previous Orders, Radiology Changes from previous H/P or p: Changes General: Per HPI Eyes: No Pain, No Vision change, No Conjunctivae inflammation, No Eyelid inflammation, No Other, No Redness ENT: No Ear pain, No Ear discharge, No Nose pain, No Nose discharge, No Nose congestion, No Mouth pain, No Mouth swelling, No Throat pain, No Throat swelling, No Other Cardiovascular: No Chest Pain, No Palpitations, No Orthopnea, No Paroxysmal Noc. Dyspnea, No Edema, No Lt Headedness, No Other Respiratory: Shortness of breath, SOB with excertion Gastrointestinal: No Nausea, No Vomiting, No Abdominal Pain, No Diarrhea, No Constipation, No Melena, No Hematochezia, No Other Genitourinary: No Dysuria, No Frequency, No Incontinence, No Hematuria, No Retention, No Other Skin: No Rash, No Lesions, No Jaundice, No Bruising, No Other Objective Vitals Vital Signs Date Time Temp Pulse Resp B/P (MAP) Pulse Ox O2 Delivery O2 Flow Rate FiO2 02/26/25 09:21 161/96 02/26/25 09:00 98.0 81 18 96 98.0 02/26/25 08:00 Room Air* 0 21 Intake/Output Intake and Output 02/26/25 07:00 Intake Total 860 ml Balance 860 ml Intake Oral 610 ml IV Total 250 ml General Appearance: Alert, Cooperative, No acute distress HEENT: Atraumatic, PERRLA, EOMI, Mucous membr. moist/pink Neck: Supple Lungs: Clear to auscultation, Normal air movement Cardiovascular: Regular rate, Normal S1, Normal S2, No murmurs, Gallops, Rubs Abdomen: Normal bowel sounds, Soft, No tenderness Extremities: Normal pulses Neuro: Cranial nerves 3-12 NL Psych/Mental Status: Mental status NL Medications Current Medications Medications Dose Ordered Sig/Harsh Route Start Time Stop Time Status Last Admin Dose Admin Sodium Chloride 10 ml Q8HR IV 02/12/25 14:00 02/26/25 05:24 10 ML Ondansetron HCl 4 mg Q4HP PRN IV 02/12/25 07:30 02/24/25 18:55 4 MG Docusate Sodium 100 mg BIDPRN PRN PO 02/12/25 07:30 02/25/25 17:17 100 MG Acetaminophen 650 mg Q6HP PRN PO 02/12/25 07:30 02/13/25 16:22 650 MG Calcium Acetate 1,334 mg TIDWMEALS PO 02/12/25 12:00 02/26/25 08:16 1,334 MG Nifedipine 60 mg DAILY PO 02/12/25 10:00 02/26/25 09:21 60 MG Apixaban 5 mg BID PO 02/12/25 22:00 02/24/25 21:44 5 MG Clonidine HCl 0.1 mg Q8HP PRN PO 02/12/25 14:45 02/26/25 00:09 0.1 MG Hydralazine HCl 10 mg Q6HP PRN IV 02/13/25 19:30 02/23/25 11:58 10 MG Pantoprazole Sodium 40 mg DAILY PO 02/16/25 10:00 02/26/25 09:21 40 MG Alprazolam 0.25 mg HS PO 02/19/25 22:00 02/25/25 21:17 0.25 MG Lactulose 30 ml BIDPRN PRN PO 02/20/25 17:15 02/26/25 08:16 30 ML Acetaminophen/ Hydrocodone Bitart 1 tab Q6HP PRN PO 02/21/25 12:00 02/26/25 08:17 1 TAB Hydralazine HCl 100 mg TID PO 02/22/25 10:00 02/26/25 05:28 100 MG Meropenem 50 ml @ 17 mls/hr DAILY IV 02/24/25 10:00 02/25/25 08:16 17 MLS/HR Doxycycline Hyclate 100 ml @ 50 mls/hr Q12H IV 02/24/25 13:00 02/25/25 23:57 50 MLS/HR Hydroxyzine Pamoate 25 mg Q6HP PRN PO 02/25/25 08:00 02/26/25 11:03 25 MG Laboratory Results Laboratory Tests 02/22/25 06:15 02/26/25 06:01 Chemistry Test 02/26/25 06:01 Calcium Level 11.5 mg/dL (8.7-10.4) H Microbiology Microbiology Date/Time Source Procedure Growth Status 02/22/25 10:05 Sputum Gram Stain - Final Complete 02/22/25 10:05 Sputum Respiratory Culture - Final Complete 02/12/25 11:47 Hand Gram Stain - Final Complete 02/12/25 11:47 Hand Wound Culture - Final Complete Assessment/Plan Assessment/Plan Acute hypoxic respiratory failure Pulmonary edema Hyperkalemia End-stage renal disease on hemodialysis Left lower lobe pneumonia Hypertension Cholelithiasis Right inguinal hernia Chronic anemia of chronic kidney disease Polysubstance abuse History of aortic valve replacement, mechanical valve, on Eliquis left renal calculi Hypercalcemia due to primary hyperparathyroidism Primary hyperparathyroidism Plan Tapered down the oxygen as tolerated Hemodialysis to be done today matrix worker consult, 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 find him a new environment says he says he was living with the his relatives but they are getting affected so he needs a new home He just moved from [place] Continue IV antibiotics Mechanical aortic valve, patient says he can not take warfarin due to bleeding in the past, he has been on Eliquis for 7 years Discharge planning once he is off the oxygen Monitor closely Full code Advance directives discussed for 22 minutes 02/22/2025: Get sputum culture Potassium is better at 5.1 Dialysis was done yesterday Oxygen as needed Continue IV antibiotics Monitor closely in the hospital We will need dialysis again possibly tomorrow matrix worker is working on arrangements for a new home or placement for the patient upon discharge 02/23/25: Parathyroid nuclear scan HD per nephrology Right inguinal hernia, asymptomatic Discharge planning 02/24/25: Pneumonia / Cough / Hemoptysis: Change antibiotics to Meropenem & Doxy Sputum culture not diagnostic HD Hyperkalemia: Lokelma 02/25/2025: Hyperkalemia: Lokelma 10 g Hemodialysis was done yesterday Continue the current regimen of IV antibiotics Monitor closely Discharge planning in 1-2 days to go to dialysis on Friday as outpatient 02/26/2025: Hyperkalemia: Potassium is 5.8: Give Lokelma Hemodialysis per nephrology Continue IV antibiotics Discharge planning for tomorrow so he can go to dialysis on Friday again Plan discussed with: Patient My Orders Orders - CONCEPCION GRANT MD Procedure Category Date Status Time Renal DIET 02/26/25 Transmitted Standard(2gna,3gk,Lopho) Breakfast Date of Service: Feb 26, 2025 Billing Provider: CONCEPCION GRANT MD Common Visit Codes: [id number] INP/OBS CARE(MOD) CONCEPCION GRANT MD Feb 26, 2025 12:41
--- NOTE | 2025-02-26 13:54 | DVHPN2 ---
Progress Note Date Seen: Feb 26, 2025 Medical Necessity Reason Pt with a Central, PICC or Fol: No Subjective Review of Systems Pt on HD at this time. Patient reports: No new complaints Objective vital signs Vital Sign Date Time Temp Pulse Resp B/P (MAP) Pulse Ox O2 Delivery O2 Flow Rate FiO2 02/26/25 12:57 97.5 83 18 168/107 (127) 100 97.5 02/26/25 08:00 Room Air* 0 21 Total Intake and Output 02/25/25 02/25/25 02/26/25 15:00 23:00 07:00 Intake Total 150 ml 360 ml 350 ml Balance 150 ml 360 ml 350 ml medications Current Medications Medications Dose Ordered Sig/Harsh Route Start Time Stop Time Status Last Admin Dose Admin Sodium Chloride 10 ml Q8HR IV 02/12/25 14:00 02/26/25 05:24 10 ML Ondansetron HCl 4 mg Q4HP PRN IV 02/12/25 07:30 02/24/25 18:55 4 MG Docusate Sodium 100 mg BIDPRN PRN PO 02/12/25 07:30 02/25/25 17:17 100 MG Acetaminophen 650 mg Q6HP PRN PO 02/12/25 07:30 02/13/25 16:22 650 MG Calcium Acetate 1,334 mg TIDWMEALS PO 02/12/25 12:00 02/26/25 12:40 1,334 MG Nifedipine 60 mg DAILY PO 02/12/25 10:00 02/26/25 09:21 60 MG Apixaban 5 mg BID PO 02/12/25 22:00 02/24/25 21:44 5 MG Clonidine HCl 0.1 mg Q8HP PRN PO 02/12/25 14:45 02/26/25 00:09 0.1 MG Hydralazine HCl 10 mg Q6HP PRN IV 02/13/25 19:30 02/23/25 11:58 10 MG Pantoprazole Sodium 40 mg DAILY PO 02/16/25 10:00 02/26/25 09:21 40 MG Alprazolam 0.25 mg HS PO 02/19/25 22:00 02/25/25 21:17 0.25 MG Lactulose 30 ml BIDPRN PRN PO 02/20/25 17:15 02/26/25 08:16 30 ML Acetaminophen/ Hydrocodone Bitart 1 tab Q6HP PRN PO 02/21/25 12:00 02/26/25 08:17 1 TAB Hydralazine HCl 100 mg TID PO 02/22/25 10:00 02/26/25 05:28 100 MG Meropenem 50 ml @ 17 mls/hr DAILY IV 02/24/25 10:00 02/25/25 08:16 17 MLS/HR Doxycycline Hyclate 100 ml @ 50 mls/hr Q12H IV 02/24/25 13:00 02/25/25 23:57 50 MLS/HR Hydroxyzine Pamoate 25 mg Q6HP PRN PO 02/25/25 08:00 02/26/25 11:03 25 MG Examination Gen: NAD, appears stated age Lungs: Bilateral air entry, no rales Heart: RRR, normal S1 and S2 Ext: No edema Neuro: A&O x4 laboratory and microbiology Laboratory Tests 02/26/25 06:01 02/22/25 06:15 Test 02/26/25 06:01 Range/Units Serum Glucose 89 74-106 mg/dL Microbiology Date/Time Source Procedure Growth Status 02/22/25 10:05 Sputum Gram Stain - Final Complete 02/22/25 10:05 Sputum Respiratory Culture - Final Complete 02/12/25 11:47 Hand Gram Stain - Final Complete 02/12/25 11:47 Hand Wound Culture - Final Complete Labs and/or images reviewed: Labs reviewed by me Problem List/Assessment/Plan Problem List/Assessment/Plan IMP ESRD on HD- last HD 02/26 HTN Hx of CHF Polysubstance abuse L nephrolithiasis, nonobstructing Bilateral renal cysts Anemia of chronic kidney disease REC Next HD tentatively 03/01 Chemistry panel Fluid restriction 1.5L/day Strict I&Os Will continue to follow Plan discussed with: Patient Dietary Evaluation Review Recommendations by RD: Protein Supplementation Comments: 1) Initiate Nepro bid. Encourage optimal PO intake 2) Collect renal panel including phosphorus lab 3) Follow-up with nephrology and cardiology 4) Follow-up with social insurance administrator regarding polysubstance abuse 5) Continue to monitor I&O, labs, and skin integrity Expected Outcomes/Goals: 1) appetite and labs to improve 2) wound to improve 3) f/u in 3-5 days ROBERT BAILEY Feb 26, 2025 13:54
[2025-02-27 01:00] VITALS: BP 158/90; PULSE 66; RESP 18; TEMP 97.9; O2SAT 98
[2025-02-27 05:00] VITALS: BP 144/97; PULSE 70; RESP 18; TEMP 97.5; O2SAT 99
[2025-02-27 06:18] LABS: Anion Gap 11 (5-15); Carbon Dioxide 29 mmol/L (20-31); Sodium 136 mmol/L (136-145)
[2025-02-27 06:21] LABS: Calcium 11.2 mg/dL (8.7-10.4); Chloride 96 mmol/L (98-107); Potassium 5.3 mmol/L (3.5-5.1)
[2025-02-27 06:24] LABS: BUN/Creatinine Ratio 5.1 (10.0-20.0); Glucose 88 mg/dL (74-106)
[2025-02-27 06:30] LABS: Blood Urea Nitrogen 46 mg/dL (9-23)
[2025-02-27 07:38] VITALS: PULSE 74
[2025-02-27 08:25] VITALS: BP 158/99; PULSE 76; RESP 18; TEMP 98.2; O2SAT 98
[2025-02-27] MEDS ORDERED: DOXY1CAP57 PO (11:54)
--- NOTE | 2025-02-27 12:01 | DVHDS2 ---
Discharge Summary Date of Admission February 12, 2025 at 07:30 Date of Discharge: Feb 27, 2025 Labs/Diagnostic Data: Laboratory Results Test 02/27/25 05:24 02/22/25 06:15 02/17/25 22:36 02/16/25 11:48 Sodium Level 136 mmol/L (136-145) Potassium Level 5.3 mmol/L (3.5-5.1) Chloride Level 96 mmol/L (98-107) Carbon Dioxide Level 29 mmol/L (20-31) Anion Gap 11 (5-15) Blood Urea Nitrogen 46 mg/dL (9-23) Creatinine 9.01 mg/dL (0.700-1.30) Glomerular Filtration Rate Calc 6 mL/min (>90) BUN/Creatinine Ratio 5.1 (10.0-20.0) Serum Glucose 88 mg/dL (74-106) Calcium Level 11.2 mg/dL (8.7-10.4) White Blood Count 4.4 10^3/uL (4.4-10.8) Red Blood Count 3.34 10^6/uL (4.5-5.90) Hemoglobin 10.2 g/dL (13.5-17.5) Hematocrit 31.0 % (41.0-53.0) Mean Corpuscular Volume 93.0 fL (80.0-100.0) Mean Corpuscular Hemoglobin 30.6 pg (28.0-32.0) Mean Corpuscular Hemoglobin Concent 32.9 g/dL (32.0-36.0) Red Cell Distribution Width 14.0 % (11.8-14.3) Platelet Count 261 10^3/uL (140-450) Mean Platelet Volume 7.3 fL (6.9-10.8) Neutrophils (%) (Auto) 66.3 % (37.0-80.0) Lymphocytes (%) (Auto) 13.5 % (10.0-50.0) Monocytes (%) (Auto) 8.0 % (0.0-12.0) Eosinophils (%) (Auto) 9.7 % (0.0-7.0) Basophils (%) (Auto) 2.5 % (0.0-2.0) Neutrophils # (Auto) 2.9 10 ^3/uL (1.6-8.6) Lymphocytes # (Auto) 0.6 10 ^3/uL (0.4-5.4) Monocytes # (Auto) 0.4 10 ^3/uL (0-1.3) Eosinophils # (Auto) 0.4 10 ^3/uL (0-0.8) Basophils # (Auto) 0.1 10 ^3/uL (0-0.2) Nucleated Red Blood Cells 0.1 % Phosphorus Level 5.3 mg/dL (2.4-5.1) Magnesium Level 2.3 mg/dL (1.6-2.6) Total Bilirubin 0.3 mg/dL (0.2-1.0) Aspartate Amino Transferase (AST) 17 U/L (13-40) Alanine Aminotransferase (ALT) 13 U/L (7-40) Alkaline Phosphatase 71 U/L (46-116) Total Protein 7.2 g/dL (5.7-8.2) Albumin 4.3 g/dL (3.2-4.8) Vitamin D 25-Hydroxy 32.2 ng/mL (30.0-100) Parathyroid Hormone (Intact) 413.8 pg/mL (18.4-80.1) Hepatitis A IgM Antibody Negative Hepatitis B Surface Antigen Positive (Negative) Hepatitis B Core IgM Antibody Negative (Negative) Hepatitis C Antibody Negative (Negative) Prothrombin Time 11.4 sec (9.3-11.8) Prothrombin Time INR 1.08 (0.9-1.15) Activated Partial Thromboplast Time 35.9 SEC (24.5-34.5) Test 02/12/25 04:37 B-Type Natriuretic Peptide 2042.35 pg/mL (0-100) Other Laboratory Tests 02/27/25 05:24 02/22/25 06:15 Brief Hx & Hospital Course: Final diagnoses: Acute hypoxic respiratory failure Pulmonary edema Hyperkalemia End-stage renal disease on hemodialysis Left lower lobe pneumonia Gram-negative versus Gram-positive bacteria Hypertension Cholelithiasis Right inguinal hernia Chronic anemia of chronic kidney disease Polysubstance abuse History of aortic valve replacement, mechanical valve, on Eliquis, because he says he can not take warfarin due to history of GI bleed left renal calculi Hypercalcemia due to primary hyperparathyroidism Primary hyperparathyroidism 54-year-old male with a history of end-stage renal disease on hemodialysis, hypertension, polysubstance abuse, came because he missed his dialysis He had hyperkalemia He had fluid overload He was also diagnosed with left lower lobe pneumonia IV antibiotics were given Hemodialysis was done again He has moved from [place] here and therefore he did not have dialysis His home situation was also questionable because he just moved here by he was not sure if he is going to stay here or go back to [place] and therefore the clinical social work aide also consulted on him and helped him Overall he improved slowly, he came off the oxygen, he had hemoptysis at times and therefore the antibiotics were changed to meropenem and doxycycline which improved his symptoms He is asymptomatic now The cough is better His potassium is better controlled The clinical social work aide has arranged his hemodialysis again on Friday and was in Friday and therefore he will be discharged today on p.o. doxycycline for 7 days He also takes Eliquis at home for his aortic valve replacement, because he has a mechanical valve that he said he took warfarin in the past and he had GI bleed and therefore he was not able to take it anymore and he was switched to Eliquis Condition at Discharge: Stable Final Diagnosis/Problems List Acute hypoxic respiratory failure Pulmonary edema Hyperkalemia End-stage renal disease on hemodialysis Left lower lobe pneumonia Gram-negative versus Gram-positive bacteria Hypertension Cholelithiasis Right inguinal hernia Chronic anemia of chronic kidney disease Polysubstance abuse History of aortic valve replacement, mechanical valve, on Eliquis, because he says he can not take warfarin due to history of GI bleed left renal calculi Hypercalcemia due to primary hyperparathyroidism Primary hyperparathyroidism Discharge Disposition: Home SNF Discharge Will this Physician continue t: No Discharge Statement: "Patient was advised to return to the ER or call 911 if any headaches, dizziness, shortness of breath, chest pain, abdominal pain, bleeding, fevers, or worsening of medical condition. Patient was counseled about treatment plan, medications, possible side effects, patientverbalized understanding. All questions were answered to the best of my ability. This discharge took greater then 30 minutes in planning, reviewing documentation, counseling the patient, and discussing with other team members." ASSESSMENT ASSESSMENT Assessment Date of Service: Feb 27, 2025 Billing Provider: CONCEPCION GRANT MD Common Visit Codes: [id number] DISCH DAY >30min CONCEPCION GRANT MD Feb 27, 2025 12:01
[2025-02-27 12:25] VITALS: BP 173/107; PULSE 81; RESP 18; TEMP 98; O2SAT 99
[2025-02-27] MEDS: SODIUM ZIRCONIUM CYCL 10 GM PAK PO ONE (12:28)
[2025-02-27 13:51] VITALS: BP 167/94; PULSE 83
--- NOTE | 2025-02-27 14:49 | DVHPN2 ---
Progress Note Date Seen: Feb 27, 2025 Medical Necessity Reason Pt with a Central, PICC or Fol: No Subjective Review of Systems Pt is being discharged today Patient reports: No new complaints, Feels better Objective vital signs Vital Sign Date Time Temp Pulse Resp B/P (MAP) Pulse Ox O2 Delivery O2 Flow Rate FiO2 02/27/25 14:47 167/94 02/27/25 13:51 83 02/27/25 12:25 98.0 18 99 98.0 02/27/25 08:00 Room Air* 0 21 Total Intake and Output 02/26/25 02/26/25 02/27/25 15:00 23:00 07:00 Intake Total 120 ml 590 ml 800 ml Output Total 500 ml Balance 120 ml 590 ml 300 ml medications Current Medications Medications Dose Ordered Sig/Harsh Route Start Time Stop Time Status Last Admin Dose Admin Sodium Chloride 10 ml Q8HR IV 02/12/25 14:00 02/27/25 05:13 10 ML Ondansetron HCl 4 mg Q4HP PRN IV 02/12/25 07:30 02/24/25 18:55 4 MG Docusate Sodium 100 mg BIDPRN PRN PO 02/12/25 07:30 02/25/25 17:17 100 MG Acetaminophen 650 mg Q6HP PRN PO 02/12/25 07:30 02/13/25 16:22 650 MG Calcium Acetate 1,334 mg TIDWMEALS PO 02/12/25 12:00 02/27/25 12:14 1,334 MG Nifedipine 60 mg DAILY PO 02/12/25 10:00 02/27/25 12:14 60 MG Apixaban 5 mg BID PO 02/12/25 22:00 02/24/25 21:44 5 MG Clonidine HCl 0.1 mg Q8HP PRN PO 02/12/25 14:45 02/26/25 00:09 0.1 MG Hydralazine HCl 10 mg Q6HP PRN IV 02/13/25 19:30 02/23/25 11:58 10 MG Pantoprazole Sodium 40 mg DAILY PO 02/16/25 10:00 02/27/25 12:14 40 MG Alprazolam 0.25 mg HS PO 02/19/25 22:00 02/26/25 21:16 0.25 MG Lactulose 30 ml BIDPRN PRN PO 02/20/25 17:15 02/27/25 12:27 30 ML Acetaminophen/ Hydrocodone Bitart 1 tab Q6HP PRN PO 02/21/25 12:00 02/27/25 12:27 1 TAB Hydralazine HCl 100 mg TID PO 02/22/25 10:00 02/27/25 14:47 100 MG Meropenem 50 ml @ 17 mls/hr DAILY IV 02/24/25 10:00 02/25/25 08:16 17 MLS/HR Doxycycline Hyclate 100 ml @ 50 mls/hr Q12H IV 02/24/25 13:00 02/27/25 00:00 50 MLS/HR Hydroxyzine Pamoate 25 mg Q6HP PRN PO 02/25/25 08:00 02/26/25 11:03 25 MG Examination Gen: NAD, appears stated age Lungs: Bilateral air entry, no rales Heart: RRR, normal S1 and S2 Ext: No edema Neuro: A&O x4 laboratory and microbiology Laboratory Tests 02/27/25 05:24 02/22/25 06:15 Test 02/27/25 05:24 Range/Units Serum Glucose 88 74-106 mg/dL Microbiology Date/Time Source Procedure Growth Status 02/22/25 10:05 Sputum Gram Stain - Final Complete 02/22/25 10:05 Sputum Respiratory Culture - Final Complete 02/12/25 11:47 Hand Gram Stain - Final Complete 02/12/25 11:47 Hand Wound Culture - Final Complete Labs and/or images reviewed: Labs reviewed by me Problem List/Assessment/Plan Problem List/Assessment/Plan IMP ESRD on HD- last HD 02/26 HTN Hx of CHF Polysubstance abuse L nephrolithiasis, nonobstructing Bilateral renal cysts Anemia of chronic kidney disease REC Lokelma x 1 dose Chairtime at [facility] M/W/F 0800 Pt to go to scheduled outpt HD tomorrow Fluid restriction 1.5L/day Strict I&Os Plan discussed with: Patient Dietary Evaluation Review Recommendations by RD: Protein Supplementation Comments: 1) Initiate Nepro bid. Encourage optimal PO intake 2) Collect renal panel including phosphorus lab 3) Follow-up with nephrology and cardiology 4) Follow-up with nephrology social worker regarding polysubstance abuse 5) Continue to monitor I&O, labs, and skin integrity Expected Outcomes/Goals: 1) appetite and labs to improve 2) wound to improve 3) f/u in 3-5 days ROBERT BAILEY BLOCKING MACHINE OPERATOR SECOND Feb 27, 2025 14:49
== END 2025-02-27 15:09 | disposition home or self-care (01) | DRG 425 ==
LOC: EDBD 04:09 → EDUNIT# 04:09 → ER 04:09 → OVERFLOW 07:30 → TELE-WESTW 10:04 → TELE-CENTR 02-17 20:15 → CENTRAL 02-17 21:34 → TELE-CENTR 02-17 21:40
PROVIDERS: ADMIT Internal Medicine Geriatric Medicine; ATTEND Internal Medicine Geriatric Medicine
PROC: 5A09357 Assistance with Respiratory Ventilation, Less than 24 Consecutive Hours, Continuous Positive Airway Pressure (ICD-10-PCS; principal; 2025-02-13)
PROC: 5A1D70Z Performance of Urinary Filtration, Intermittent, Less than 6 Hours Per Day (ICD-10-PCS; 2025-02-13)
PROC: 5A09357 Assistance with Respiratory Ventilation, Less than 24 Consecutive Hours, Continuous Positive Airway Pressure (ICD-10-PCS; 2025-02-14)
PROC: 5A09357 Assistance with Respiratory Ventilation, Less than 24 Consecutive Hours, Continuous Positive Airway Pressure (ICD-10-PCS; 2025-02-15)
PROC: 5A1D70Z Performance of Urinary Filtration, Intermittent, Less than 6 Hours Per Day (ICD-10-PCS; 2025-02-15)
PROC: 5A09357 Assistance with Respiratory Ventilation, Less than 24 Consecutive Hours, Continuous Positive Airway Pressure (ICD-10-PCS; 2025-02-16)
PROC: 5A09357 Assistance with Respiratory Ventilation, Less than 24 Consecutive Hours, Continuous Positive Airway Pressure (ICD-10-PCS; 2025-02-17)
PROC: 5A1D70Z Performance of Urinary Filtration, Intermittent, Less than 6 Hours Per Day (ICD-10-PCS; 2025-02-17)
PROC: 5A09357 Assistance with Respiratory Ventilation, Less than 24 Consecutive Hours, Continuous Positive Airway Pressure (ICD-10-PCS; 2025-02-18)
PROC: 5A1D70Z Performance of Urinary Filtration, Intermittent, Less than 6 Hours Per Day (ICD-10-PCS; 2025-02-18)
PROC: 5A09357 Assistance with Respiratory Ventilation, Less than 24 Consecutive Hours, Continuous Positive Airway Pressure (ICD-10-PCS; 2025-02-19)
PROC: 5A1D70Z Performance of Urinary Filtration, Intermittent, Less than 6 Hours Per Day (ICD-10-PCS; 2025-02-21)
PROC: 5A1D70Z Performance of Urinary Filtration, Intermittent, Less than 6 Hours Per Day (ICD-10-PCS; 2025-02-24)
PROC: 5A1D70Z Performance of Urinary Filtration, Intermittent, Less than 6 Hours Per Day (ICD-10-PCS; 2025-02-26)
DX: E87.70 Fluid overload, unspecified (principal); J96.01 Acute respiratory failure with hypoxia; J15.69 Pneumonia due to other Gram-negative bacteria; I13.2 Hypertensive heart and chronic kidney disease with heart failure and with stage 5 chronic kidney disease, or end stage renal disease; J15.9 Unspecified bacterial pneumonia; N18.6 End stage renal disease; D63.1 Anemia in chronic kidney disease; R45.851 Suicidal ideations; I50.32 Chronic diastolic (congestive) heart failure; Z99.2 Dependence on renal dialysis; F19.10 Other psychoactive substance abuse, uncomplicated; E87.5 Hyperkalemia; K40.90 Unilateral inguinal hernia, without obstruction or gangrene, not specified as recurrent; K80.20 Calculus of gallbladder without cholecystitis without obstruction; N20.0 Calculus of kidney; F41.9 Anxiety disorder, unspecified; F32.A Depression, unspecified; N28.1 Cyst of kidney, acquired; F11.10 Opioid abuse, uncomplicated; E21.0 Primary hyperparathyroidism; Z95.1 Presence of aortocoronary bypass graft; Z88.6 Allergy status to analgesic agent; Z95.2 Presence of prosthetic heart valve; Z88.5 Allergy status to narcotic agent; Z88.8 Allergy status to other drugs, medicaments and biological substances; Z79.2 Long term (current) use of antibiotics; Z79.899 Other long term (current) drug therapy; Z79.01 Long term (current) use of anticoagulants; Z79.891 Long term (current) use of opiate analgesic; Z87.891 Personal history of nicotine dependence; Z91.158 Patient's noncompliance with renal dialysis for other reason
CPT/HCPCS: 36415; 71045; 74176; 80048; 80053; 80074; 82306; 83735; 83880; 83970; 84100; 84132; 85025; 85610; 85730; 87070; 87205; 90935; 94660; 96374; G0378; J1642; J2185; J2405

== ENCOUNTER 2025-04-17 09:00 | Inpatient (IN) | payer MEDICAID ==
[~2025-04-17] VITALS: Ht 175.3 cm; Wt 85.0 kg
[~2025-04-17 09:00] MED LIST changes: +ALPR2TAB2 PO; -APIX2.5T PO; -CEPH-509 PO; +CINA90TA10 PO; +HYDR-3682 PO; -HYDR25TA87 PO; +HYDR50TA47 PO; -HYDR50TA69 PO; +SUCR5CHW PO; -SULF400T11 PO
[2025-04-17 09:17] VITALS: PULSE 88; RESP 12; O2SAT 93
--- NOTE | 2025-04-17 09:41 | ED.PDOC ---
SOB-HPI HPI Comments 54 y/o M, BIBA, with PMHx of CHF, HTN, HLD, COPD, and ESRD presents to the ED for CC of shortness of breath. EMS reports, patient is coming from home where he c/o shortness of breath onset, this morning (04/17/25). Patient reports, to have been experiencing increased shortness of breath over the course of [id number]. Patient endorses, using continuous oxygen at home at 2 LPM. Upon arrival to the ED, patient is hypertensive with a blood pressure of 206/131mmHg. Patient denies chest pain, cough, nasal congestion, or fever. No other associated symptoms, modifiers, recent injuries or sick contacts present at this time. Chief Complaint: Shortness of Breath Time Seen by MD: 09:30 Primary Care Provider: MARVEL Reviewed notes: Nurses Notes, Digital Media Specialist Notes, Medications, Allergies Mode of Arrival: EMS Severity: Moderate Timing: Hours Duration: Since onset Context: At Rest PE Risk Factors: None History of: COPD, CHF Prehospital treatment: None Modifying Factors: Nothing Associated Signs and Symptoms: None Past Medical History PAST MEDICAL HISTORY: CHF, CKF, COPD, High Lipids, HTN, Thyroid Surgical History: Denies all surgeries Family History Family History: Reviewed,noncontributory to illness, No family hx of Cancer, No family hx of DM, No family hx of Heart juan, No family hx of HTN, No family hx ofKidney juan, No family hx of Liver juan, No family hx of Lung juan, No family hx of Stroke Social History Smoker: Non-Smoker Alcohol: Denies ETOH Use Drugs: Marijuana Lives In: Home Constitutional: denies: chills, diaphoresis, fatigue, fever, malaise, sweats, weakness, others EENTM: denies: blurred vision, double vision, ear bleeding, ear discharge, ear drainage, ear pain, ear ringing, eye pain, eye redness, hearing loss, mouth pain, mouth swelling, nasal discharge, nose bleeding, nose congestion, nose pain, photophobia, tearing, throat pain, throat swelling, voice changes, others Respiratory: reports: shortness of breath; denies: cough, hemoptysis, orthopnea, SOB at rest, SOB with excertion, stridor, wheezing, others Cardiovascular: denies: chest pain, dizzy spells, diaphoresis, Dyspnea on exertion, edema, irregular heart beat, left arm pain, lightheadedness, palpitations, PND, syncope, others Gastrointestinal: denies: abdomen distended, abdominal pain, blood streaked bowels, constipated, diarrhea, dysphagia, difficulty swallowing, hematemesis, melena, nausea, poor appetite, poor fluid intake, rectal bleeding, rectal pain, vomiting, others Genitourinary: denies: burning, dysuria, flank pain, frequency, hematuria, incontinence, penile discharge, penile sore, pain, testicle pain, testicle swelling, urgency, others Neurological: denies: dizziness, fainting, headache, left sided numbness, left sided weakness, numbness, paresthesia, pre-existing deficit, right sided numbness, right sided weakness, seizure, speech problems, tingling, tremors, weakness, others Musculoskeletal: denies: back pain, gout, joint pain, joint swelling, muscle pain, muscle stiffness, neck pain, others Integumetry: denies: bruises, change in color, change in hair/nails, dryness, laceration, lesions, lumps, rash, wounds, others Allergic/Immunocompromised: denies: Difficulty Healing, Frequent Infections, Hives, Itching, others Hematologic/Lymphatic: denies: anemia, blood clots, easy bleeding, easy bruising, swollen glands, others Endocrine: denies: excessive hunger, excessive sweating, excessive thirst, excessive urination, flushing, intolerance to cold, intolerance to heat, unexplained weight gain, unexplained weight loss, others Psychiatric: denies: anxiety, bipolar disorder, depression, hopeless, panic disorder, schizophrenia, sleepless, suicidal, others All Other Systems: Reviewed and Negative Physical Exam General Appearance: Moderate Distress HEENT: Normal ENT Inspection, Pharynx Normal, TMs Normal Neck: Full Range of Motion, Non-Tender, Normal, Normal Inspection Respiratory: Other (Coarse breath sounds) Cardiovascular: No Edema, No JVD, No Murmur, No Gallop, Normal Peripheral Pul ses, Regular Rate/Rhythm Breast Exam: Deferred Gastrointestinal: No Organomegaly, Non Tender, No Pulsatile Mass, Normal Bowel Sounds, Soft Genitalia: Deferred Pelvic: Deferred Rectal: Deferred Extremities: No calf tenderness, Normal capillary refill, Normal inspection, Normal range of motion, Non-tender, No pedal edema Musculoskeletal : Apperance: Normal Neurologic: Alert, agency owner II-XII nml as Tested, No Motor Deficits, Normal Affect, Normal Mood, No Sensory Deficits Cerebellar Function: Normal Reflexes: Normal Skin: Dry, Normal Color, Warm Peripheral Pulses: 3+ Radial (R), 3+ Radial (L) Lymphatic: No Adenopathy Was a procedure done? Was a procedure done?: No Differential Dx Differential Diagnosis: Anxiety, Asthma, Bronchitis, CHF, COPD, Pneumonia, Pulmonary Embolism, Sinusitis, Pharyngitis, URI X-Ray, Labs, Meds, VS Vital Signs Date Time Temp Pulse Resp B/P (MAP) Pulse Ox O2 Delivery O2 Flow Rate FiO2 04/17/25 09:30 83 14 205/125 (151) 100 04/17/25 09:26 88 04/17/25 09:17 88 12 93 Nasal Cannula* 3 32 04/17/25 09:15 98.2 90 16 206/131 (156) 99 98.2 Lab Test 04/17/25 09:47 Range/Units White Blood Count 6.3 4.4-10.8 10^3/uL Red Blood Count 2.72 L 4.5-5.90 10^6/uL Hemoglobin 8.7 L 13.5-17.5 g/dL Hematocrit 25.0 L 41.0-53.0 % Mean Corpuscular Volume 91.8 80.0-100.0 fL Mean Corpuscular Hemoglobin 31.8 28.0-32.0 pg Mean Corpuscular Hemoglobin Concent 34.7 32.0-36.0 g/dL Red Cell Distribution Width 16.3 H 11.8-14.3 % Platelet Count 277 140-450 10^3/uL Mean Platelet Volume 6.5 L 6.9-10.8 fL Neutrophils (%) (Auto) 80.2 H 37.0-80.0 % Lymphocytes (%) (Auto) 8.0 L 10.0-50.0 % Monocytes (%) (Auto) 5.8 0.0-12.0 % Eosinophils (%) (Auto) 4.7 0.0-7.0 % Basophils (%) (Auto) 1.3 0.0-2.0 % Neutrophils # (Auto) 5.1 1.6-8.6 10 ^3/uL Lymphocytes # (Auto) 0.5 0.4-5.4 10 ^3/uL Monocytes # (Auto) 0.4 0-1.3 10 ^3/uL Eosinophils # (Auto) 0.3 0-0.8 10 ^3/uL Basophils # (Auto) 0.1 0-0.2 10 ^3/uL Nucleated Red Blood Cells 0.0 % Sodium Level 143 136-145 mmol/L Potassium Level 4.1 3.5-5.1 mmol/L Chloride Level 102 98-107 mmol/L Carbon Dioxide Level 26 20-31 mmol/L Anion Gap 15 5-15 Blood Urea Nitrogen Pending Creatinine Pending Glomerular Filtration Rate Calc Pending BUN/Creatinine Ratio Pending Serum Glucose Pending Calcium Level 10.7 H 8.7-10.4 mg/dL Troponin I High Sensitivity Pending B-Type Natriuretic Peptide Pending Patient alert. Complaining of shortness a breath. Was given Lasix. He is on oxygen. Blood pressure elevated. Was given labetalol. He does get dialysis on Friday. Nephrology consultation. Reviewed his previous visit. Explained to the patient. Continue monitoring. [place] [id number] Ph: [phone] DIAGNOSTIC IMAGING Diagnostic Imaging Report : [id number] Signed PATIENT: LEANN WU ACCT: [id number] UNIT: [id number] : 1970 LOC: ER ROOM / BED: / AGE / SEX: 54 / M ADM STATUS: REG ER SERVICE 6 ORDERING PHYSICIAN: ANGELA MADISON MD PROCEDURE(s): CXRP - CHEST PORTABLE REASON: sob ORDER NUMBER(s): [id number], ACCESSION NUMBER(s): [id number] XY CHEST PORTABLE, HISTORY: sob COMPARISON: XY CHEST XRAY 1 VIEW on DOS: 02/19/25, XY CHEST PORTABLE on DOS: 02/12/25, XY CHEST XRAY 1 VIEW on DOS: 01/13/25 XY CHEST XRAY 1 VIEW on DOS: 02/19/25, XY CHEST PORTABLE on DOS: 02/12/25, XY CHEST XRAY 1 VIEW on DOS: 01/13/25 TECHNICAL DATA: 1 view of the chest was obtained. FINDINGS: Lines and tubes: A left TD catheter is seen. Cardiomediastinal silhouette: Enlarged Pulmonary vasculature: Prominent Lung expansion: normal Lung airspace: Patchy perihilar opacity. Lung interstitium: normal Pleura: normal Pneumothorax: no Bones: Unremarkable Other: no IMPRESSION: Cardiomegaly with pulmonary congestion. Mild pulmonary edema. ATED BY: DEMETRIO MORE MD DICTATED DATE/TIME: 04/17/251005 SIGNED BY: DEMETRIO MORE MD SIGNED DATE/TIME: 04/17/251005 CC: Time of 1ST Reevaluation: 10:00 Reevaluation 1ST: Unchanged Patient Education/Counseling: Diagnosis, Treatment Family Education/Counseling: No Family Present SEPSIS Sepsis Screen Date sepsis recognized/suspect: Apr 17, 2025 Time Sepsis recognized/suspect: 914 Recent Procedure: No On Antibiotic Therapy: No Respiratory Rate >20: No Heart Rate >90: No Temp<36 C (96.8 F) or >38.3 C: No SBP <90 or MAP <65 mmHG: No New Acute Mental Status Change: No Is the patient on CPAP, BIPAP,: No Physician Orders Troponin-I Hs (04/17/25 09:27) B-Type Natriuretic Peptide (04/17/25 09:27) Chest Portable (04/17/25 09:27) Urinalysis (04/17/25 09:27) Basic Metabolic Panel (04/17/25 09:27) Troponin-I Hs (04/17/25 10:27) Troponin-I Hs (04/17/25 12:27) *[facility] (04/17/25 09:27) Labetalol Hcl (Labetalol Hcl) (04/17/25 10:15) Vital Signs Date Time Temp Pulse Resp B/P (MAP) Pulse Ox O2 Delivery O2 Flow Rate FiO2 04/17/25 09:30 83 14 205/125 (151) 100 04/17/25 09:26 88 04/17/25 09:17 88 12 93 Nasal Cannula* 3 32 04/17/25 09:15 98.2 90 16 206/131 (156) 99 98.2 Laboratory Tests Test 04/17/25 09:47 White Blood Count 6.3 10^3/uL (4.4-10.8) Departure 1 Departure Time of Disposition: 10:04 Impression: Primary Impression: CHF (congestive heart failure) Qualified Codes: I50.43 - Acute on chronic combined systolic (congestive) and diastolic (congestive) heart failure Additional Impressions: End stage renal disease on dialysis Hypertensive emergency Disposition: 09 ADMITTED INPATIENT Admit to: Med Surg Condition: Guarded Critical Care Note Critical Care Time?: Yes (90 min-critical care time only) Stability Stability form required: No Heart Score Heart Score: Heart Score Response (Comments) Value History Slightly Suspicious 0 EKG Normal 0 Age 45-64 1 Risk Factors >3 or Hx ASHD 2 Troponin Normal limit 0 Total 3 I personally scribed for ANGELA MADISON MD ([email or web address]) on 04/17/25 at 09:41. Electronically submitted by Francesca Kong ([email or web address]). I personally scribed for ANGELA MADISON MD ([email or web address]) on 04/17/25 at 10:15. Electronically submitted by Francesca Kong ([email or web address]). ANGELA MADISON MD Apr 17, 2025 09:41
[2025-04-17] MEDS: FUROSEMIDE 40 MG/4 ML VIAL IV ONE (09:57)
[2025-04-17 09:59] LABS: Hematocrit 25.0 % (41.0-53.0); Hemoglobin 8.7 g/dL (13.5-17.5); Mean Corpuscular Hemoglobin 31.8 pg (28.0-32.0); Mean Corpuscular Volume 91.8 fL (80.0-100.0); Nucleated Red Blood Cells % 0.0 %
[2025-04-17 10:08] LABS: Chloride 102 mmol/L (98-107); Potassium 4.1 mmol/L (3.5-5.1); Sodium 143 mmol/L (136-145)
--- NOTE | 2025-04-17 10:08 | DVH ---
XY CHEST PORTABLE, HISTORY: sob COMPARISON: XY CHEST XRAY 1 VIEW on DOS: 02/19/25, XY CHEST PORTABLE on DOS: 02/12/25, XY CHEST XRAY 1 VIEW on DOS: 01/13/25 XY CHEST XRAY 1 VIEW on DOS: 02/19/25, XY CHEST PORTABLE on DOS: 02/12/25, XY CHEST XRAY 1 VIEW on DOS: 01/13/25 TECHNICAL DATA: 1 view of the chest was obtained. FINDINGS: Lines and tubes: A left TD catheter is seen. Cardiomediastinal silhouette: Enlarged Pulmonary vasculature: Prominent Lung expansion: normal Lung airspace: Patchy perihilar opacity. Lung interstitium: normal Pleura: normal Pneumothorax: no Bones: Unremarkable Other: no IMPRESSION: Cardiomegaly with pulmonary congestion. Mild pulmonary edema.
[2025-04-17 10:09] LABS: Anion Gap 15 (5-15); Carbon Dioxide 26 mmol/L (20-31)
[2025-04-17 10:11] LABS: Calcium 10.7 mg/dL (8.7-10.4)
[2025-04-17 10:14] LABS: BUN/Creatinine Ratio 6.1 (10.0-20.0); Glucose 93 mg/dL (74-106)
[2025-04-17 10:15] LABS: Blood Urea Nitrogen 52 mg/dL (9-23)
[2025-04-17] MEDS: LABETALOL HCL 20 MG/4 ML VL IV ONE (10:49)
--- NOTE | 2025-04-17 11:00 | ECG ---
[facility] Heart Test Date: 2025-04-17 Test Time: 09:03:41 Pat Name: LEANN WU Department: ED Room: Gender: M Art Consultant: SYDNEE : 1970 Requested By: ANGELA MADISON Order Number: [id number] Reading MD: Measurements Intervals Rossiter Rate: 86 P: 0 NM: 0 QRS: 27 QRSD: 113 T: 80 QT: 490 QTc: 587 Interpretive Statements Accelerated junctional rhythm LVH with secondary repolarization abnormality Anterior infarct, old Prolonged QT interval Please click the below link to view image of tracing.
[2025-04-17] MEDS ORDERED: NITROGLYCERIN 0.4 MG SL TAB SL PRN (11:30)
[2025-04-17] MEDS ORDERED: ONDANSETRON HCL 4 MG/2 ML VIAL IV PRN (11:30)
[2025-04-17] MEDS ORDERED: MORPHINE SULFATE INJ 2 MG/ml SYRG IV PRN (11:30)
[2025-04-17] MEDS ORDERED: DOCUSATE SOD 100 MG CAP PO PRN (11:30)
[2025-04-17] MEDS ORDERED: SEVELAMER 800 MG TAB PO SCH (11:30)
[2025-04-17] MEDS ORDERED: ENOXAPARIN SOD 30 MG/0.3 ML SYRINGE SC SCH ×2 (11:30→11:45)
--- NOTE | 2025-04-17 11:53 | DVHHP2 ---
History of Present Illness Reason for Visit: sob History of Present Illness 54-year-old male with a complex past medical history of congestive heart failure (CHF), hypertension, hyperlipidemia, COPD, end-stage renal disease (ESRD) on hemodialysis patient states no longer makes urine, hyperthyroidism, right inguinal hernia, and polysubstance use disorder presents with worsening shortness of breath. Patient was recently discharged on March 22, 2025 after tr eatment for hypoxic respiratory failure. He is on home O2 at 2 L/min, but today developed acute worsening dyspnea despite oxygen support. He was transported to the ED via EMS from home. On arrival, he was found to be markedly hypertensive (BP 206/131) and was administered IV Lasix and IV labetalol. He receives dialysis Friday, Friday, and Friday at [facility] (Dr. Amina alfonso). His last session was friday with 3 L removed. He continues to be hypoxic and short of breath with evidence of volume overload.ED evaluation revealed: CXR: Cardiomegaly, pulmonary edema, vascular congestion Labs: Creatinine 8.58, hemoglobin 8.7, Hct 25. CT chest: Right lower lobe infiltrate concerning for pneumonia Vitals: Hypertensive emergency, stable rhythm Sputum culture pending. Given his history, exam, and ED findings, he is admitted for acute on chronic hypoxic respiratory failure, pulmonary edema, and hypertensive emergency, with need for renal management. Past Medical History See HPI above Past Surgical History See HPI above Family History Reviewed, non-contributory to the management of this case. Past Social History The patient lives at home, denies smoking, alcohol or illicit drugs abuse. Review of Systems Constitutional: No: Fever, Chills, Sweats, Weakness, Malaise, Other Eyes: No: Pain, Vision change, Conjunctivae inflammation, Eyelid inflammation, Other, Redness ENT: No: Ear pain, Ear discharge, Nose pain, Nose discharge, Nose congestion, Mouth pain, Mouth swelling, Throat pain, Throat swelling, Other Respiratory: Shortness of breath; No: Cough, Dry, SOB with excertion, Wheezing, Hemoptysis, Pleuritic Pain, Sputum, Wheezing, Other Cardiovascular: No: Chest Pain, Palpitations, Orthopnea, Paroxysmal Noc. Dyspnea, Edema, Lt Headedness, Other Gastrointestinal: No: Nausea, Vomiting, Abdominal Pain, Diarrhea, Constipation, Melena, Hematochezia, Other Genitourinary: No Dysuria, No Frequency, No Incontinence, No Hematuria, No Retention, No Other Musculoskeletal: No: other, neck pain, shoulder pain, arm pain, back pain, hand pain, leg pain, foot pain Skin: No: Rash, Lesions, Jaundice, Bruising, Other Neurological: No: Weakness, Numbness, Incoordination, Change in speech, Confusion, Seizures, Other Allergies: Coded Allergies: NO KNOWN ALLERGIES (Unverified , 02/12/25) Medications Current Medications Medications Dose Ordered Sig/Harsh Route Start Time Stop Time Status Last Admin Dose Admin Ondansetron HCl 4 mg Q4HP PRN IV 04/17/25 11:30 UNV Docusate Sodium 100 mg BIDPRN PRN PO 04/17/25 11:30 UNV Morphine Sulfate 2 mg Q4HPRN PRN IV 04/17/25 11:30 UNV Enoxaparin Sodium 30 mg DAILY SC 04/17/25 11:30 UNV Nitroglycerin 0.4 mg Q5MINP PRN SL 04/17/25 11:30 UNV Exam Vital Signs Vital Signs Date Time Temp Pulse Resp B/P (MAP) Pulse Ox O2 Delivery O2 Flow Rate FiO2 04/17/25 10:50 218/137 04/17/25 10:49 81 04/17/25 10:30 11 97 04/17/25 09:30 Nasal Cannula* 3 32 04/17/25 09:15 98.2 98.2 General Appearance: Alert, Oriented X3, Cooperative, mild distress HEENT: Atraumatic, PERRLA, EOMI, Mucous membr. moist/pink Respiratory: Other (Diminished throughout/left chest wall PermCath) Cardiovascular: Regular rate, Normal S1, Normal S2, No murmurs Abdominal: Normal bowel sounds, Soft, No tenderness, No hepatospenomegaly, No masses Extremities: No clubbing, No cyanosis, No edema, Normal pulses, No tenderness/swelling Skin: No rashes, No breakdown, No significant lesion Neuro: Normal gait, Normal speech, Strength at 5/5 X4 ext, Normal tone, Sens ation intact, Cranial nerves 3-12 NL Psych/Mental Status: Mental status NL, Mood NL Labs/Xrays Chest x-ray shows cardiomegaly and pulmonary congestion and edema I reviewed labs, imaging CT scan abdomen pelvis, EKG and all diagnostic studies on this patient from ED records and the medical chart Labs Test 04/17/25 10:28 04/17/25 09:47 Range/Units Troponin I High Sensitivity 27 </=54 ng/L White Blood Count 6.3 4.4-10.8 10^3/uL Red Blood Count 2.72 L 4.5-5.90 10^6/uL Hemoglobin 8.7 L 13.5-17.5 g/dL Hematocrit 25.0 L 41.0-53.0 % Mean Corpuscular Volume 91.8 80.0-100.0 fL Mean Corpuscular Hemoglobin 31.8 28.0-32.0 pg Mean Corpuscular Hemoglobin Concent 34.7 32.0-36.0 g/dL Red Cell Distribution Width 16.3 H 11.8-14.3 % Platelet Count 277 140-450 10^3/uL Mean Platelet Volume 6.5 L 6.9-10.8 fL Neutrophils (%) (Auto) 80.2 H 37.0-80.0 % Lymphocytes (%) (Auto) 8.0 L 10.0-50.0 % Monocytes (%) (Auto) 5.8 0.0-12.0 % Eosinophils (%) (Auto) 4.7 0.0-7.0 % Basophils (%) (Auto) 1.3 0.0-2.0 % Neutrophils # (Auto) 5.1 1.6-8.6 10 ^3/uL Lymphocytes # (Auto) 0.5 0.4-5.4 10 ^3/uL Monocytes # (Auto) 0.4 0-1.3 10 ^3/uL Eosinophils # (Auto) 0.3 0-0.8 10 ^3/uL Basophils # (Auto) 0.1 0-0.2 10 ^3/uL Nucleated Red Blood Cells 0.0 % Sodium Level 143 136-145 mmol/L Potassium Level 4.1 3.5-5.1 mmol/L Chloride Level 102 98-107 mmol/L Carbon Dioxide Level 26 20-31 mmol/L Anion Gap 15 5-15 Blood Urea Nitrogen 52 H 9-23 mg/dL Creatinine 8.58 H 0.700-1.30 mg/dL Glomerular Filtration Rate Calc 7 >90 mL/min BUN/Creatinine Ratio 6.1 L 10.0-20.0 Serum Glucose 93 74-106 mg/dL Calcium Level 10.7 H 8.7-10.4 mg/dL B-Type Natriuretic Peptide 1218.51 0-100 pg/mL SEPSIS Sepsis Screen Date sepsis recognized/suspect: Apr 17, 2025 Time Sepsis recognized/suspect: 914 Recent Procedure: No On Antibiotic Therapy: No Respiratory Rate >20: No Heart Rate >90: No Temp<36 C (96.8 F) or >38.3 C: No SBP <90 or MAP <65 mmHG: No New Acute Mental Status Change: No Is the patient on CPAP, BIPAP,: No Physician Orders Chest Portable (04/17/25 09:27) Urinalysis (04/17/25 09:27) Troponin-I Hs (04/17/25 12:27) *[facility] (04/17/25 09:27) Admit (04/17/25 11:29) Allergies (04/17/25 11:29) Code Status (04/17/25 11:29) Ondansetron Hcl (Zofran) (04/17/25 11:30) Docusate Sodium Capsule (Colace Capsule) (04/17/25 11:30) Complete Blood Count (04/18/25 04:00) Comprehensive Metabolic Panel (04/18/25 04:00) Cardiac Diet-2gna,Lofat,Lochol (04/17/25 Lunch) Condition: Stable (04/17/25 11:29) BRP (04/17/25 11:29) Morphine Sulfate Injection (04/17/25 11:30) Sequential Compression Device (04/17/25 ) Enoxaparin Sodium (Lovenox) (04/17/25 11:30) Nitroglycerin Sublingual (Ntrostat Subli (04/17/25 11:30) Stat Ekg For Chest Pain (04/17/25 11:29) Notify Md Of Changes From Base (04/17/25 11:29) Forge Heater For 24 Hours (04/17/25 11:29) Emergency Dysrhythmia Protocol (04/17/25 11:29) Rhythm Strips Once Every Shift (04/17/25 11:29) Oxygen By Nasal Cannula (04/17/25 11:29) Calcium Acetate Capsule (Phoslo Capsule) (04/17/25 12:00) Carvedilol Tablet (Coreg Tablet) (04/17/25 22:00) Clonidine Hcl Tablet (Catapres Tablet) (04/17/25 11:30) Losartan Tablet (Cozaar Tablet) (04/17/25 22:00) Nifedipine Er (Procardia Xl (Time-Releas (04/18/25 10:00) Sevelamer (Renagel) (04/17/25 11:30) (Nf) Alprazolam (Xanax) (04/17/25 22:00) (Nf) Apixaban Base (Eliquis Starter Pack (04/17/25 22:00) (Nf) Cinacalcet Hcl (Cinacalcet Hydrochl (04/18/25 10:00) (Nf) Hydralazine Hcl (04/17/25 14:00) (Nf) Omeprazole (Prilosec) (04/18/25 10:00) Hydralazine Injection (Apresoline Inject (04/17/25 11:30) Vital Signs Date Time Temp Pulse Resp B/P (MAP) Pulse Ox O2 Delivery O2 Flow Rate FiO2 04/17/25 10:50 218/137 04/17/25 10:49 81 218/137 04/17/25 10:30 85 11 210/140 (163) 97 04/17/25 09:30 83 14 205/125 (151) 100 04/17/25 09:30 100 Nasal Cannula* 3 32 04/17/25 09:26 88 04/17/25 09:17 88 12 93 Nasal Cannula* 3 32 04/17/25 09:15 98.2 90 16 206/131 (156) 99 98.2 04/17/25 09:03 86 Laboratory Tests Test 04/17/25 09:47 White Blood Count 6.3 10^3/uL (4.4-10.8) Medications Medications Dose Ordered Sig/Harsh Route Start Time Stop Time Status Last Admin Dose Admin Furosemide 40 mg ONCE ONCE IV 04/17/25 09:30 04/17/25 09:31 DC 04/17/25 10:50 40 MG Labetalol HCl 10 mg ONCE ONCE IV 04/17/25 10:15 04/17/25 10:16 DC 04/17/25 10:49 10 MG Assessment/Plan Assessment/Plan 54 yr old male with Acute on chronic hypoxic respiratory failure due to pulmonary edema and pneumonia in the setting of ESRD and CHF; hypertensive emergency. ASSESSMENT & PLAN Acute on Chronic Hypoxic Respiratory Failure Likely pulmonary edema from fluid overload needing additional HD Continue home O2 Monitor oxygenation; may require BiPAP if worsening ordered renal for additional HD acute Pulmonary Edema due to ESRD Last HD today with 3 L removed Monitor weight, input/output Nephrology consulted Consider urgent dialysis if symptoms persist End-Stage Renal Disease on Hemodialysis Dialysis M/W/F last HD friday Nephrology on board Monitor lytes and volume status closely acute Hypertensive Emergency Treated with IV hydralazine ordered Consider nicardipine drip if no improvement BP goal <160/90 Monitor renal function and MAPs closely CHF with reduced EF Echo (December 2024): LVEF 55%, LVH, moderate mitral stenosis/regurg, MAC Chest x-ray: pulmonary edema pt does not make urine he states fluid balance S/p Aortic Valve Replacement with Mechanical Valve Continue Eliquis 5 mg BID Monitor H/H and for signs of bleeding Hgb 8.7, borderline low; benefits > risk Anemia of Chronic Disease Monitor CBC Consider erythropoietin support depending on nephrology Medication Noncompliance Review home meds Provide education and reinforce medication adherence chronic problems CHF Hypertension COPD ordered albuterol/atrovent prn Hyperlipidemia Hyperthyroidism ESRD Right inguinal hernia Polysubstance use disorder Anemia of chronic disease Mechanical heart valve Constipation FEN / PPx Fluids: Fluid restricted, monitor I/O strictly Electrolytes: Monitor BMP daily; replete as needed Nutrition: Renal diet DVT Prophylaxis: On Eliquis (continue) GI Prophylaxis: PPI Protonix Dialysis: HD M/W/F nephrology to assess need for additional dialysis Disposition Admit to Telemetry for management of acute on chronic respiratory failure, volume overload, and hypertensive emergency. Monitor response to dialysis and antibiotics. Continue respiratory and cardiac monitoring. Plan discussed with: Patient My Orders Orders - MIRACLE SON DNP Procedure Category Date Status Time Admit ADMIT 04/17/25 Transmitted 11:29 Allergies LELIA 04/17/25 In Process 11:29 Code Status CODE 04/17/25 Transmitted 11:29 Ondansetron Hcl PHA 04/17/25 Logged (Zofran) 11:30 Docusate Sodium PHA 04/17/25 Logged Capsule (Colace 11:30 Complete Blood Count LAB 04/18/25 Verified 04:00 Comprehensive LAB 04/18/25 Verified Metabolic Panel 04:00 Cardiac DIET 04/17/25 Transmitted Diet-2gna,Lofat,Lochol Lunch Condition: Stable [facility] 04/17/25 Transmitted 11:29 BRP [facility] 04/17/25 Transmitted 11:29 Morphine Sulfate [facility] 04/17/25 Logged Injection 11:30 Sequential [facility] 04/17/25 Transmitted Compression Device Enoxaparin Sodium [facility] 04/17/25 Logged (Lovenox) 11:30 Nitroglycerin [facility] 04/17/25 Logged Sublingual (Ntrostat 11:30 Stat Ekg For Chest [facility] 04/17/25 Transmitted Pain 11:29 Notify Of Changes [facility] 04/17/25 Transmitted From Base 11:29 Forge Heater For [facility] 04/17/25 Transmitted 24 Hours 11:29 Emergency Dysrhythmia [facility] 04/17/25 Transmitted Protocol 11:29 Rhythm Strips Once [facility] 04/17/25 Transmitted Every Shift 11:29 Oxygen By Nasal RT 04/17/25 Transmitted Cannula 11:29 Calcium Acetate [facility] 04/17/25 Transmitted Capsule (Phoslo 12:00 Carvedilol Tablet [facility] 04/17/25 Transmitted (Coreg Tablet) 22:00 Clonidine Hcl Tablet [facility] 04/17/25 Transmitted (Catapres Tablet) 11:30 Losartan Tablet [facility] 04/17/25 Transmitted (Cozaar Tablet) 22:00 Nifedipine Er PHA 04/18/25 Transmitted (Procardia Xl 10:00 Sevelamer (Renagel) PHA 04/17/25 Transmitted 11:30 (Nf) Alprazolam PHA 04/17/25 Transmitted (Xanax) 22:00 (Nf) Apixaban Base PHA 04/17/25 Transmitted (Eliquis Starter Pack 22:00 (Nf) Cinacalcet Hcl PHA 04/18/25 Transmitted (Cinacalcet Hydrochl 10:00 (Nf) Hydralazine Hcl PHA 04/17/25 Transmitted 14:00 (Nf) Omeprazole PHA 04/18/25 Transmitted (Prilosec) 10:00 Hydralazine Injection [facility] 04/17/25 Transmitted (Apresoline Inject 11:30 Date of Service: Apr 17, 2025 Billing Provider: MIRACLE SON DNP Common Visit Codes: 37562-[id number] INP/OBS CARE (HIGH) MIRACLE SON DNP Apr 17, 2025 11:53
[2025-04-17] MEDS ORDERED: CALCIUM ACETATE 667 MG CAP PO SCH (12:00)
[2025-04-17] MEDS ORDERED: IPRATROPIUM BROM 0.5 MG/2.5ML INH SOL NEB PRN ×2 (12:00→12:15)
[2025-04-17] MEDS ORDERED: ALBUTEROL SULF 2.5 MG/0.5ML(0.5%) NEB SOLN NEB PRN ×2 (12:00→12:15)
[2025-04-17 12:10] VITALS: BP 201/117; PULSE 75; RESP 14; TEMP 98.2; O2SAT 98
[2025-04-17] MEDS: hydrALAZINE HCL 20 MG/ML VL IV PRN (12:10)
[2025-04-17] MEDS: hydrALAZINE HCL 20 MG/ML VL ONE (12:13)
[2025-04-17] MEDS: SODIUM CHL 0.9% 1000 ML BAG XX ONE (13:00)
[2025-04-17] MEDS ORDERED: PATIENTS OWN MEDICATION (Hydralazine Hcl 1 TAB) PO SCH (14:00)
--- NOTE | 2025-04-17 14:20 | DVHINCON2 ---
Date of service: Apr 17, [address] Ahmadi Reason for Consultation ESRD History of Present Illness Mr. Griffith is a 54-year-old male with known history of ESRD, chronic hepatitis who presents for further evaluation and management of dyspnea. He was seen in the emergency department awake alert conversant and in no acute distress. He states that he came to the hospital for symptoms of dyspnea. He feels that he has" fluid" on board. His regularly scheduled dialysis is on a Friday schedule. He denies fever, chills, nausea, vomiting, diarrhea Past Medical History ESRD Hypertension Hepatitis-B Anemia Allergies: Coded Allergies: NO KNOWN ALLERGIES (Unverified , 02/12/25) Home Meds Active Scripts Clonidine Hydrochloride (Clonidine Hcl) 0.1 Mg Tab, 0.1 MG PO Q8HPRN PRN, #90 TAB Measure blood pressure prior to every dose. Take only if your systolic blood pressure or top number is above 160 mmHg Prov:DAX LAM MD 11/03/19 Nifedipine (Nifedipine Er) 30 Mg Tab, 60 MG PO DAILY, #30 TAB Prov:DAX LAM MD 11/03/19 Losartan Potassium (Losartan Potassium) 50 Mg Tab, 50 MG PO BID, #60 TAB Prov:DAX ALM MD 11/03/19 Calcium Acetate (PHOSLO CAPSULE) 667 Mg Cp, 1334 MG PO TIDWMEALS, #180 CAP Prov:DAX LAM MD 11/03/19 Carvedilol (COREG) 12.5 Mg Tab, 25 MG PO Q12HR, #60 TAB Prov:DAX LAM MD 11/03/19 Omeprazole (PRILOSEC) 20 Mg Cap, 1 CAP PO DAILY, #90 CAP 1 Refill Prov:LUCIO PLUNKETT MD 09/01/17 Reported Medications Polynuclear Iron(III)-Oxyhydro (Velphoro) 500 Mg Chw, TAB PO UD for 30 Days, #180 03/19/25 Hydroxyzine Hcl (Hydroxyzine Hcl) 25 Mg Tab, 1 TAB PO BID for 30 Days, #60 03/19/25 Cinacalcet HCl (Cinacalcet Hydrochloride) 90 Mg Tab, 1 TAB PO DAILY for 30 Days, #30 03/19/25 Alprazolam (Xanax) 2 Mg Tab, 1 TAB PO BID, #60 TAB 02/12/25 Hydralazine Hcl (Hydralazine Hcl) 50 Mg Tab, 1 TAB PO TID 02/12/25 Hydrocodone-Acetaminophen (Hydrocodone Bitartrate/AC 5-325 mg) 1 Tab Tab, 1 TAB PO, TAB 01/13/25 Apixaban Base (Eliquis Starter Pack) 5 Mg Tab, 5 MG PO BID, TAB 11/02/19 Magnesium Citrate (Citrate of Magnesia) 1 Rosario Rosario, 1 ROSARIO PO PRN for FOR CONSTIPATION 08/31/17 Sevelamer Hydrochloride (Renagel) 800 Mg Tab, 800 MG PO AC, TAB 02/16/16 Current Medications Current Medications Medications (Trade) Dose Ordered Sig/Harsh Route PRN Reason Start Time Stop Time Status Last Admin Ondansetron HCl (Zofran) 4 mg Q4HP PRN IV NAUSEA / VOMITING 04/17/25 11:30 Docusate Sodium (Colace Capsule) 100 mg BIDPRN PRN PO FOR CONSTIPATION 04/17/25 11:30 Morphine Sulfate 2 mg Q4HPRN PRN IV SEVERE PAIN (7-10 PAIN SCALE) 04/17/25 11:30 Enoxaparin Sodium (Lovenox) 30 mg DAILY SC 04/17/25 11:30 04/17/25 11:59 DC Nitroglycerin (Ntrostat Sublingual) 0.4 mg Q5MINP PRN SL FOR CHEST PAIN 04/17/25 11:30 Calcium Acetate (Phoslo Capsule) 1,334 mg TIDWMEALS PO 04/17/25 12:00 04/17/25 11:59 DC Carvedilol (Coreg Tablet) 25 mg Q12HR PO 04/17/25 22:00 04/17/25 11:59 DC Clonidine HCl (Catapres Tablet) 0.1 mg Q8HPRN PRN PO SBP>160 or DBP>105 04/17/25 11:30 04/17/25 11:59 DC Losartan Potassium (Cozaar Tablet) 50 mg BID PO 04/17/25 22:00 04/17/25 11:59 DC Nifedipine (Procardia Xl (Time-Release)) 60 mg DAILY PO 04/18/25 10:00 04/17/25 11:59 DC Sevelamer HCl (Renagel) 800 mg AC PO 04/17/25 11:30 04/17/25 11:59 DC Patient Own Medication 1 tab BID PO 04/17/25 22:00 04/17/25 11:59 DC Patient Own Medication 5 mg BID PO 04/17/25 22:00 04/17/25 11:59 DC Patient Own Medication 1 tab DAILY PO 04/18/25 10:00 04/17/25 11:59 DC Patient Own Medication 1 tab TID PO 04/17/25 14:00 04/17/25 11:59 DC Patient Own Medication 1 cap DAILY PO 04/18/25 10:00 04/17/25 11:59 DC Hydralazine HCl (Apresoline Injection) 10 mg Q6HP PRN IV SBP>150 04/17/25 11:30 04/17/25 12:10 Albuterol (Ventolin Medneb) 2.5 mg Q4HPRN PRN NEB SHORTNESS OF BREATH 04/17/25 12:00 04/17/25 11:59 DC Ipratropium [place] (Atrovent Medneb) 0.5 mg Q4HPRN PRN NEB SHORTNESS OF BREATH 04/17/25 12:00 04/17/25 11:59 DC Ipratropium [place] (Atrovent Medneb) 0.5 mg Q4HPRN PRN NEB SHORTNESS OF BREATH 04/17/25 12:15 Enoxaparin Sodium (Lovenox) 30 mg DAILY SC 04/17/25 11:45 Hold Calcium Acetate (Phoslo Capsule) 1,334 mg TIDWMEALS PO 04/17/25 12:15 Carvedilol (Coreg Tablet) 25 mg Q12HR PO 04/17/25 22:00 Clonidine HCl (Catapres Tablet) 0.1 mg Q8HPRN PRN PO SBP>160 or DBP>105 04/17/25 11:45 Losartan Potassium (Cozaar Tablet) 50 mg BID PO 04/17/25 22:00 Nifedipine (Procardia Xl (Time-Release)) 60 mg DAILY PO 04/18/25 10:00 Sevelamer HCl (Renagel) 800 mg AC PO 04/17/25 11:45 Albuterol (Ventolin Medneb) 2.5 mg Q4HPRN PRN NEB SHORTNESS OF BREATH 04/17/25 12:15 Alprazolam (Xanax Tablet) 2 mg BID PO 04/17/25 22:00 Apixaban (Eliquis) 5 mg BID PO 04/17/25 22:00 Patient Own Medication 1 tab DAILY PO 04/18/25 10:00 Hydralazine HCl (Apresoline Tablet) 50 mg TID PO 04/17/25 14:00 Pantoprazole Sodium (Protonix Tablet) 40 mg DAILY PO 04/18/25 10:00 Family History: Family history: Cardiovascular disease Family history: Hypertension G8 FATHER GRANDFATHER-FATHER SIDE Review of Systems Denies gross hematuria, dysuria, tea or Coca-Cola colored urine Denies excessive use of recent NSAIDs, foamy urine, recent IV contrast studies Denies recent chest pain, Denies fever, chills, nausea, vomiting, diarrhea Denies unintentional weight loss, night sweats Denies focal weakness, numbness H&P Exam Vital Signs/I&O Vital Sign Date Time Temp Pulse Resp B/P (MAP) Pulse Ox O2 Delivery O2 Flow Rate FiO2 04/17/25 13:30 68 19 106/64 (78) 100 04/17/25 12:10 98.2 3.0 98.2 04/17/25 09:30 Nasal Cannula* 32 Physical Exam Gen: nad heent: nc/at, mmm lungs: cta anteriorly, access is left-sided tunneled IJ dialysis catheter. cvs: no rub abd: soft, bowel sounds audible ext: no edema skin: no rash, tattoos noted neuro: alert and oriented Labs/Diagnostic Data Labs/Diagnostic Data Laboratory Tests Test 04/17/25 10:28 04/17/25 09:47 Range/Units Troponin I High Sensitivity 27 30 </=54 ng/L White Blood Count 6.3 4.4-10.8 10^3/uL Red Blood Count 2.72 L 4.5-5.90 10^6/uL Hemoglobin 8.7 L 13.5-17.5 g/dL Hematocrit 25.0 L 41.0-53.0 % Mean Corpuscular Volume 91.8 80.0-100.0 fL Mean Corpuscular Hemoglobin 31.8 28.0-32.0 pg Mean Corpuscular Hemoglobin Concent 34.7 32.0-36.0 g/dL Red Cell Distribution Width 16.3 H 11.8-14.3 % Platelet Count 277 140-450 10^3/uL Mean Platelet Volume 6.5 L 6.9-10.8 fL Neutrophils (%) (Auto) 80.2 H 37.0-80.0 % Lymphocytes (%) (Auto) 8.0 L 10.0-50.0 % Monocytes (%) (Auto) 5.8 0.0-12.0 % Eosinophils (%) (Auto) 4.7 0.0-7.0 % Basophils (%) (Auto) 1.3 0.0-2.0 % Neutrophils # (Auto) 5.1 1.6-8.6 10 ^3/uL Lymphocytes # (Auto) 0.5 0.4-5.4 10 ^3/uL Monocytes # (Auto) 0.4 0-1.3 10 ^3/uL Eosinophils # (Auto) 0.3 0-0.8 10 ^3/uL Basophils # (Auto) 0.1 0-0.2 10 ^3/uL Nucleated Red Blood Cells 0.0 % Sodium Level 143 136-145 mmol/L Potassium Level 4.1 3.5-5.1 mmol/L Chloride Level 102 98-107 mmol/L Carbon Dioxide Level 26 20-31 mmol/L Anion Gap 15 5-15 Blood Urea Nitrogen 52 H 9-23 mg/dL Creatinine 8.58 H 0.700-1.30 mg/dL Glomerular Filtration Rate Calc 7 >90 mL/min BUN/Creatinine Ratio 6.1 L 10.0-20.0 Serum Glucose 93 74-106 mg/dL Calcium Level 10.7 H 8.7-10.4 mg/dL B-Type Natriuretic Peptide 1218.51 0-100 pg/mL Plan/Recommendation IMP: 1) ESRD on dialysis, signs of minimal peripheral volume overload on exam. 2) acute on chronic systolic and diastolic heart failure 3) possible pulmonary edema 4) chronic hepatitis-B 5) anemia REC: - dialysis today for volume removal we will reassess symptoms. - patient is resume chronic outpatient dialysis schedule upon discharge. - we will continue to follow closely as inpatient. For the consultation. Plan discussed with: Patient LEILA GARCIA MD Apr 17, 2025 14:20
[2025-04-17 18:11] VITALS: O2SAT 97
[2025-04-17] MEDS: CALCIUM ACETATE 667 MG CAP PO SCH (19:47)
[2025-04-17] MEDS: SEVELAMER 800 MG TAB PO SCH (19:48)
[2025-04-17] MEDS: hydrOXYzine 25 MG TAB or CAP PO ONE (20:50)
[2025-04-17 21:30] VITALS: BP 193/104; PULSE 74; RESP 16; TEMP 98.2; O2SAT 96
[2025-04-17] MEDS ORDERED: CARVEDILOL 12.5 MG TAB PO SCH ×2 (22:00)
[2025-04-17] MEDS ORDERED: ALPRAZolam 0.5 MG TAB PO SCH (22:00)
[2025-04-17] MEDS ORDERED: PATIENTS OWN MEDICATION (Alprazolam (Xanax) 1 TAB) PO SCH (22:00)
[2025-04-17] MEDS ORDERED: LOSARTAN POTASSIUM 50 MG TAB PO SCH ×2 (22:00)
[2025-04-17] MEDS ORDERED: APIXABAN 5 MG TAB PO SCH (22:00)
[2025-04-17] MEDS ORDERED: APIXABAN BASE 5 MG PO SCH (22:00)
[2025-04-18] MEDS ORDERED: PATIENTS OWN MEDICATION (Omeprazole (Prilosec) 1 CAP) PO SCH (10:00)
[2025-04-18] MEDS ORDERED: CINACALCET HCL PO SCH (10:00)
[2025-04-18] MEDS ORDERED: CINACALCET HYDROCHLORIDE 30 MG TAB PO SCH (10:00)
[2025-04-18] MEDS ORDERED: PANTOPRAZOLE 40 MG TAB PO SCH (10:00)
== END 2025-04-17 21:51 | disposition left against medical advice (07) | DRG 194 ==
LOC: ER 09:00 → EDBD 09:00 → OVERFLOW 11:29 → ER 11:33 → OVERFLOW 11:33
PROVIDERS: ADMIT Nurse Practitioner Family; ATTEND Nurse Practitioner Family
PROC: 5A1D70Z Performance of Urinary Filtration, Intermittent, Less than 6 Hours Per Day (ICD-10-PCS; principal; 2025-04-17)
DX: I13.2 Hypertensive heart and chronic kidney disease with heart failure and with stage 5 chronic kidney disease, or end stage renal disease (principal); J96.21 Acute and chronic respiratory failure with hypoxia; N18.6 End stage renal disease; J18.9 Pneumonia, unspecified organism; K73.9 Chronic hepatitis, unspecified; D63.1 Anemia in chronic kidney disease; J44.0 Chronic obstructive pulmonary disease with (acute) lower respiratory infection; Z79.01 Long term (current) use of anticoagulants; Z53.29 Procedure and treatment not carried out because of patient's decision for other reasons; I50.43 Acute on chronic combined systolic (congestive) and diastolic (congestive) heart failure; I16.1 Hypertensive emergency; E78.5 Hyperlipidemia, unspecified; Z99.2 Dependence on renal dialysis; Z95.2 Presence of prosthetic heart valve; Z91.148 Patient's other noncompliance with medication regimen for other reason; Z79.899 Other long term (current) drug therapy; Z82.49 Family history of ischemic heart disease and other diseases of the circulatory system
CPT/HCPCS: 36415; 71045; 80048; 83880; 84484; 85025; 87340; 90935; 93005; 96374; 96375; 99291; 99292; G0378